=== PATIENT | female | born 1950 | race African-American/Black ===

== ENCOUNTER 2020-01-20 21:48 | Inpatient (IN) | payer MEDICARE, OTHER ==
[~2020-01-20] VITALS: Ht 160 cm; Wt 126.6 kg
[~2020-01-20 21:48] MED LIST: ABILIFY30 MG ORAL; IVERMECTIN5 GM MC; PERMETHRIN59 ML TOPIC; TRAVATAN 0.0042.5 ML BOTH EYES
[2020-01-20 21:50] VITALS: BP 128/84
--- NOTE | 2020-01-20 21:50 | NUR ---
ED Nurse Note: Julius brought into ED by private ambulance from [facility] c/o positive covid test. patient denies any pain or any other complaints. per EMS, patient was tested positive for covid prior to arrival. patient currently satting at 100% on 3 liters nasal cannula, per patients chart, patient was positive for covid 19 followed by multiple negative tests and then positive again. patient is alert and oriented x4, unable to turn patient at this time due heavyness, denies any wounds. patient does present with a diaper. IV started on left forearm 20 gauge, labs sent as well as covid swab. patient placed on isolation room, bed at lowest position
--- NOTE | 2020-01-20 22:13 | Emergency Room Report ---
History of Present Illness General Chief Complaint: Upper Respiratory Illness Source: Patient Present Illness HPI Patient is a 69-year-old female presents for increased cough. Had diagnosis of coronavirus today. Apparently had been requiring oxygen. Patient been sent in from [facility].Patient is noted to have prior history of coronavirus infection in August and spent several weeks in ICU at [facility]. Patient had previously been using supplemental oxygen after this episode. Patient had previously been a smoker. Nonproductive cough. 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 COVID-19 Screening: Positive COVID-19 COVID-19 Testing Source: FLOORING SALES MANAGER 01/20/2020 Patient History Past Medical History: see triage record Now: No Reviewed Nursing Documentation: PMH: Agreed; PSxH: Agreed Nursing Documentation-PMH Past Medical History: No History, Except For Hx Cardiac Problems: Yes Hx Hypertension: Yes Hx Diabetes: Yes Hx Cancer: No Hx Gastrointestinal Problems: No Hx Neurological Problems: Yes Hx Headaches: Yes Hx Neurologic Surgery: No Hx Brain Shunt: No Review of Systems All Other Systems: negative except mentioned in HPI Physical Exam Vital Signs Date Time Temp Pulse Resp B/P (MAP) Pulse Ox O2 Delivery O2 Flow Rate FiO2 01/20/20 21:43 98.8 88 18 137/90 (106) 97 Room Air Sp02 EP Interpretation: reviewed, normal General Appearance: normal inspection, alert, Chronically Ill Head: atraumatic ENT: normal ENT inspection, hearing 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, normal voice Neck: normal inspection, full range of motion, supple, no bony tend Respiratory: normal inspection, lungs clear, normal breath sounds, no respiratory distress, no retraction, no wheezing Cardiovascular #1: regular rate, rhythm, no edema Gastrointestinal: normal inspection, normal bowel sounds, non tender, soft, no guarding, no hernia Genitourinary: no CVA tenderness Musculoskeletal: normal inspection, back normal, normal range of motion Neurologic: alert, computer systems design analyst III-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 Differential diagnosis include was not limited to coronavirus infection, pneumonia, urinary tract infection among others. Because of complexity of patient's case laboratory tests and imaging studies were ordered.Chest x-ray showed bilateral patchy infiltrates without evident air bronchograms and normal cardiac size. Patient was given supplemental oxygen. Patient's facility was noted to have recent outbreak of coronavirus infections and patient had tested positive . Dr. Parham was contacted for inpatient management. Labs Test 01/20/20 22:45 White Blood Count 5.9 K/UL (4.8-10.8) Red Blood Count 3.75 M/UL (4.20-5.40) Hemoglobin 11.6 G/DL (12.0-16.0) Hematocrit 32.6 % (37.0-47.0) Mean Corpuscular Volume 87 FL (80-99) Mean Corpuscular Hemoglobin 30.9 PG (27.0-31.0) Mean Corpuscular Hemoglobin Concent 35.6 G/DL (32.0-36.0) Red Cell Distribution Width 14.3 % (11.6-14.8) Platelet Count 216 K/UL (150-450) Mean Platelet Volume 7.2 FL (6.5-10.1) Neutrophils (%) (Auto) 63.5 % (45.0-75.0) Lymphocytes (%) (Auto) 22.8 % (20.0-45.0) Monocytes (%) (Auto) 11.6 % (1.0-10.0) Eosinophils (%) (Auto) 1.7 % (0.0-3.0) Basophils (%) (Auto) 0.4 % (0.0-2.0) Prothrombin Time 11.8 SEC (9.30-11.50) Prothromb Time International Ratio 1.1 (0.9-1.1) Activated Partial Thromboplast Time 31 SEC (23-33) D-Dimer 1.45 mg/L FEU (0.00-0.49) Urine Color Pale yellow Urine Appearance Clear Urine pH 6 (4.5-8.0) Urine Specific [place] 1.010 (1.005-1.035) Urine Protein Negative (NEGATIVE) Urine Glucose (UA) Negative (NEGATIVE) Urine Ketones Negative (NEGATIVE) Urine Blood 2+ (NEGATIVE) Urine Nitrite Negative (NEGATIVE) Urine Bilirubin Negative (NEGATIVE) Urine Urobilinogen Normal MG/DL (0.0-1.0) Urine Leukocyte Esterase Negative (NEGATIVE) Urine RBC 2-4 /HPF (0 - 2) Urine WBC 0-2 /HPF (0 - 2) Urine Squamous Epithelial Cells Few /LPF (NONE/OCC) Urine Bacteria None /HPF (NONE) Lactic Acid Level 0.50 mmol/L (0.4-2.0) Troponin I 0.000 ng/mL (0.000-0.056) EKG Diagnostic Results Rate: normal Rhythm: NSR, other ST Segments: no acute changes Last Vital Signs Date Time Temp Pulse Resp B/P (MAP) Pulse Ox O2 Delivery O2 Flow Rate FiO2 01/20/20 21:43 98.8 88 18 137/90 (106) 97 Room Air Status: unchanged Disposition: ADMITTED INPATIENT Condition: Stable Kp Sam MD Jan 20, 2020 22:13
[2020-01-20 23:19] LABS: APPEARANCE,URINE CLEAR; BILIRUBIN, URINE NEGATIVE (NEGATIVE); COLOR,URINE PALE YELLOW; GLUCOSE, URINE (UA) NEGATIVE (NEGATIVE); KETONES,URINE NEGATIVE (NEGATIVE); LEUKOCYTE ESTERASE ,URINE NEGATIVE (NEGATIVE); NITRITE,URINE NEGATIVE (NEGATIVE); PH,URINE 6 (4.5-8.0); PROTEIN,URINE NEGATIVE (NEGATIVE); UROBILINOGEN,URINE NORMAL MG/DL (0.0-1.0)
[2020-01-20 23:29] LABS: BASOPHILS % (AUTO) 0.4 % (0.0-2.0); EOSINOPHILS % (AUTO) 1.7 % (0.0-3.0); HEMATOCRIT 32.6 % (37.0-47.0); HEMOGLOBIN 11.6 G/DL (12.0-16.0); LYMPHOCYTES % (AUTO) 22.8 % (20.0-45.0); MEAN CORPUSCULAR VOLUME 87 FL (80-99); MONOCYTES % (AUTO) 11.6 % (1.0-10.0); NEUTROPHILS % (AUTO) 63.5 % (45.0-75.0); PLATELET COUNT 216 K/UL (150-450); RED BLOOD COUNT 3.75 M/UL (4.20-5.40); RED CELL DISTRIBUTION WIDTH 14.3 % (11.6-14.8); WHITE BLOOD COUNT 5.9 K/UL (4.8-10.8)
[2020-01-20 23:41] LABS: INR 1.1 (0.9-1.1)
[2020-01-20 23:45] VITALS: BP 122/80
[2020-01-20 23:52] LABS: ALANINE AMINOTRANSFERASE 6 U/L (12-78); ALBUMIN 2.7 G/DL (3.4-5.0); ALBUMIN/GLOBULIN RATIO 0.5 (1.0-2.7); ALKALINE PHOSPHATASE 78 U/L (46-116); ASPARTATE AMINO TRANSFERASE 17 U/L (15-37); BILIRUBIN,TOTAL 0.2 MG/DL (0.2-1.0); BLOOD UREA NITROGEN 12 mg/dL (7-18); CALCIUM 8.8 MG/DL (8.5-10.1); CARBON DIOXIDE 38 MMOL/L (21-32); CHLORIDE 99 MMOL/L (98-107); CREATINE KINASE 38 U/L (26-308); CREATININE 0.7 MG/DL (0.55-1.30); FERRITIN 192 NG/ML (8-388); LACTATE DEHYDROGENASE 125 U/L (81-234); PHOSPHORUS 3.7 MG/DL (2.5-4.9); POTASSIUM 4.3 MMOL/L (3.5-5.1); SODIUM 140 MMOL/L (136-145)
[2020-01-21 00:15] LABS: CKMB 1.4 NG/ML (0.0-3.6)
--- NOTE | 2020-01-21 00:50 | Emergency Room Report ---
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 COVID-19 Screening: Positive COVID-19 COVID-19 Testing Source: STUDENT DRIVING INSTRUCTOR 01/20/2020 Patient History Now: No Nursing Documentation-PMH Past Medical History: No History, Except For Hx Cardiac Problems: Yes Hx Hypertension: Yes Hx Diabetes: Yes Hx Cancer: No Hx Gastrointestinal Problems: No Hx Neurological Problems: Yes Hx Headaches: Yes Hx Neurologic Surgery: No Hx Brain Shunt: No Physical Exam Vital Signs Date Time Temp Pulse Resp B/P (MAP) Pulse Ox O2 Delivery O2 Flow Rate FiO2 01/20/20 21:43 98.8 88 18 137/90 (106) 97 Room Air Medical Decision Making Last Vital Signs Date Time Temp Pulse Resp B/P (MAP) Pulse Ox O2 Delivery O2 Flow Rate FiO2 01/20/20 21:43 98.8 88 18 137/90 (106) 97 Room Air Kp Sam MD Jan 21, 2020 00:50
[2020-01-21] MEDS ORDERED: SENNA8.6 M2 PO (06:22)
[2020-01-21] MEDS ORDERED: XARELTO10 MG ORAL (06:22)
[2020-01-21] MEDS ORDERED: LIPITOR80 MG ORAL (06:22)
[2020-01-21] MEDS ORDERED: PALIPERIDONE ER6 MG PO (06:22)
[2020-01-21] MEDS ORDERED: TYLENOL EXTRA500 MG ORAL (06:22)
[2020-01-21] MEDS ORDERED: VITAMIN D210 MCG PO (06:22)
[2020-01-21] MEDS ORDERED: PANTOPRAZOLE SO40 MG ORAL (06:22)
[2020-01-21] MEDS ORDERED: HYDRALAZINE HCL25 M1 ORAL (06:22)
[2020-01-21] MEDS ORDERED: ASPIRIN81 MG ORAL (06:22)
[2020-01-21] MEDS ORDERED: LISINOPRIL40 MG ORAL (06:22)
[2020-01-21] MEDS ORDERED: TRAMADOL HCL50 MG ORAL (06:22)
[2020-01-21] MEDS ORDERED: BENZTROPINE ME0.5 MG ORAL (06:22)
[2020-01-21] MEDS ORDERED: MIRALAX17 G2 ORAL (06:22)
--- NOTE | 2020-01-21 07:05 | NUR ---
HAND-OFF: Report given to JOSE Parson and JOSE Villa.
[2020-01-21 07:30] VITALS: BP 106/45
[2020-01-21] MEDS: HydrALAZINE 25mg tab ORAL SCH ×3 (07:30→21:39)
--- NOTE | 2020-01-21 07:48 | NUR ---
Note undone in EDM - 01/21/20 at 0834 by LORENE TRANSFER TO FLOOR: Patient transferred to as ordered, per ER MD. Report given to Nadira GARCIA. Belongings and medications given to Patient. Rapid Covid swab, MRSA and VRE swab sent to lab. Held 07:30 Hydralazine dt BP being 100/35, ER MD aware. Pt is resting comfortably, breathing is even and unlabored, no signs of chest pain or distress noted.
--- NOTE | 2020-01-21 07:48 | NUR ---
ED Nurse Note: Report given to Nadira GARCIA. Belongings and medications given to Patient. Rapid Covid swab, MRSA and VRE swab sent to lab. Held 07:30 Hydralazine dt BP being 100/35, ER MD aware. Pt is resting comfortably, breathing is even and unlabored, no signs of chest pain or distress noted.
--- NOTE | 2020-01-21 08:45 | NUR ---
TRANSFER TO FLOOR: Patient transferred to as ordered, per ER MD. Report given to Nadira GARCIA [address]. Belongings with pt. Transported to 219 with CAR DISPATCHER on tele monitor no signs of distress noted. Breathing is unlabored and she is able to speak in full sentances. Vital signs stable as documented.
[2020-01-21 08:53] VITALS: BP 114/70
--- NOTE | 2020-01-21 09:00 | History and Physical Report ---
DATE OF ADMISSION: 01/21/2020 CHIEF COMPLAINT: COVID-19 pneumonia. HISTORY OF PRESENT ILLNESS: Patient is a 69-year-old female. She has prior history of COVID-19 pneumonia in the summer of this year. She was intubated and developed acute renal failure, but recovered. She was sent to acute rehabilitation and later to a detention facility. She developed worsening cough for the last 2 weeks and tested again positive for COVID-19. She had worsening hypoxemia. On evaluation in the emergency room, she had bilateral infiltrates and required 3 liters nasal cannula. She is now admitted for further evaluation and care. PAST MEDICAL HISTORY: Significant for history of schizophrenia, hypertension, obesity, sleep apnea, history of DVT. PAST SURGICAL HISTORY: None. CURRENT MEDICATIONS: Reconciled and reviewed. ALLERGIES: None. FAMILY HISTORY: None. SOCIAL HISTORY: Negative for tobacco, ethanol, or drugs. REVIEW OF SYSTEMS: GENERAL: No fevers or chills. HEENT: No headaches or visual changes. CARDIOPULMONARY: No chest pain. Positive shortness of breath and cough. GASTROINTESTINAL: No nausea or vomiting. GENITOURINARY: No urgency or frequency. MUSCULOSKELETAL: No joint pain or swelling. NEUROLOGIC: No history of seizures. PHYSICAL EXAMINATION: VITAL SIGNS: Temperature 98, pulse 80, respirations 18, blood pressure 123/97. GENERAL: Patient is well developed, no apparent distress. HEART: Regular. LUNGS: Clear. ABDOMEN: Soft. EXTREMITIES: Without clubbing, cyanosis. NEUROLOGIC: Significant for left-sided weakness. LABORATORY DATA: X-ray showed bilateral infiltrates. UA was clear. White count 6, hemoglobin 11. Sodium 140, potassium 4.3, creatinine is 0.7. ASSESSMENT: This is a 69-year-old female with a prior history of COVID-19 pneumonia admitted with complaints of recurrent COVID-19 pneumonia. PLAN: Supplemental oxygen. ID consultation is pending. Consider remdesivir and steroids. Continue Xarelto. Cardiology and Pulmonary consults have also been obtained. Federico Parham M.D. DR: JOE JOB#: [id number] CC:
--- NOTE | 2020-01-21 09:15 | History and Physical Report ---
DATE OF ADMISSION: 01/21/2020 NOTE: INCOMPLETE DICTATION CHIEF COMPLAINT: COVID-19 pneumonia. HISTORY OF PRESENT ILLNESS: Patient is a 69-year-old. Federico Parham M.D. DR: JOE JOB#: [id number] CC:
[2020-01-21] MEDS: Xarelto 10mg tab ORAL SCH (10:10)
[2020-01-21] MEDS: Vitamin D 1000 units Tab ORAL SCH (10:10)
[2020-01-21] MEDS: Miralax 17gm pkt ORAL SCH (10:10)
[2020-01-21] MEDS: Benztropine 1mg tab ORAL SCH ×2 (10:10→18:10)
[2020-01-21] MEDS: Sennosides 8.6mg tab ORAL SCH (10:10)
[2020-01-21] MEDS: Aspirin Baby 81mg ORAL SCH (10:11)
--- NOTE | 2020-01-21 10:46 | NUR ---
NURSE NOTES: NEW ADMISSION: Pt arrived to the unit at 0900. Admitting Dr Parham, DX: covid pna. Pt was transferred to bed, bedscale reading 129 kg. garnishment specialist placed on pt, SR noted. Pt is bedbound and not able to assist with turning. Pt is AOx4 and on NC @2L with no sign of resp distress or sob. Pt denies any pain, only c/o cough. VSS and pt is afebrile. Pt is incontinent x2. IV to left FA 20G flushed and locked. Skin was assessed and no areas of concern were noted, only dryness. Optifoam placed for protection. Bed in lowest locked position. Call light within reach, will continue with plan of care
[2020-01-21 12:00] VITALS: BP 158/86
--- NOTE | 2020-01-21 12:16 | Consultation ---
DATE OF CONSULTATION: 01/21/2020 INFECTIOUS DISEASES CONSULTATION CONSULTING PHYSICIAN: Sebastian Dumont MD REFERRING PHYSICIAN: Federico Parham MD REASON FOR CONSULTATION: COVID-19 pneumonia. HISTORY OF PRESENTING ILLNESS: This is a 69-year-old lady with history of hypertension, schizophrenia, sleep apnea, obesity, DVT who comes in from a long term facility with cough along with shortness of breath. She was tested positive for COVID-19. An Infectious Diseases consultation has been obtained for antibiotics. PAST MEDICAL HISTORY: 1. History of schizophrenia. 2. Hypertension. 3. Obesity. 4. Sleep apnea. 5. DVT. SOCIAL HISTORY: She used to be a smoker, she does not smoke anymore. She used to drink alcohol, she does not drink anymore. No history of drug use. FAMILY HISTORY: Her brother had heart disease. REVIEW OF SYSTEMS: RESPIRATORY: No fever or chills. She has cough. She has shortness of breath. No chest pain. CARDIAC: No chest pain. No palpitation. No dizziness. No syncope. GASTROINTESTINAL: No nausea. No vomiting. No abdominal pain. No diarrhea. MEDICATIONS: As an inpatient, she is on atorvastatin, vitamin D, Cogentin, Senna, Xarelto, MiraLAX, Protonix, aspirin, Abilify, Tylenol, Ultram, hydralazine. ALLERGIES: No known drug allergies. PHYSICAL EXAMINATION: VITAL SIGNS: Temperature 98.7, T-max of 98.8, pulse of 82, respiratory rate 22, blood pressure 125/65, O2 saturation of 99% on 2 liters of oxygen. Examination deferred due to COVID-19. LABORATORY AND DIAGNOSTIC DATA: White count 5.9, hemoglobin 11.6, hematocrit 32.6, MCV 87, platelet count of 260, with neutrophils of 63%. Sodium 140, potassium 4.3, chloride 99, bicarb 38, BUN 12, creatinine 0.7, glucose 106, calcium 8.8. Ferritin 192. Total bilirubin 0.2, AST 17, ALT 6, alkaline phosphatase 78. LDH 125. CK 38, CK-MB 1.4. Troponin 0. C-reactive protein 7.1. Beta-natriuretic peptide 69. Total protein 7.9, albumin 2.7. Lipase of 115. UA showing 0 to 2 white cells. COVID-19 test was positive. ASSESSMENT: This is a 69-year-old lady with hypertension, schizophrenia, sleep apnea who comes in with cough, shortness of breath, and is found to have. 1. COVID-19 pneumonia. She is on 2 liters of oxygen with saturation of 99%. She has had prior history of COVID-19 pneumonia at [facility] where she spent in ICU for several weeks. 2. Sleep apnea. 3. Hypertension. 4. Schizophrenia. PLAN: 1. We will start the patient on Remdesivir, the patient agrees to it. Benefits and risks explained. 2. We will start the patient on dexamethasone. 3. We will follow up patient clinically. 4. Continue isolation. I would like to thank, Dr. Parham, for this consultation. Sebastian Dumont M.D. DR: Maxwell JOB#: [id number] CC: Federico Parham M.D.
--- NOTE | 2020-01-21 13:34 | NUR ---
CASE MANAGEMENT:REVIEW 69 YR OLD FEMALE BIBA FROM [facility] SI: COVID PNEUMONIA 98.7 88 18 137/90 97% ON RA H/H-11.6/32.6 CO2+38 IS: 1L NS BOLUS CHEST XRAY BLOOD CX : TO TELEMETRY
--- NOTE | 2020-01-21 13:37 | NUR ---
CASE MANAGEMENT:REVIEW 01/21/20 SI: COVID PNA 98.7 82 22 100/35 99% ON 3L/NC IS: IV REMDESIVIR Q24 (02/23) DECADRON PO QD XARELTO PO QD : TELEMETRY STATUS DCP; FROM DONNA ONEILL
[2020-01-21] MEDS ORDERED: Loading Dose:Remdesivir 200mg/NS 210ml IV SCH ×2 (15:00)
[2020-01-21 16:00] VITALS: BP 130/80
--- NOTE | 2020-01-21 19:00 | NUR ---
NURSE HAND-OFF REPORT: Important Events on Shift: code status pending Patient Status: stable Diet: reg Pending Orders: Pending Results/Labs: Pending MD notification: Latest Vital Signs: Temperature 98.2 , Pulse 92 , B/P 130 /80 , Respiratory Rate 20 , O2 SAT 97 , Nasal Cannula, O2 Flow Rate 2.0 . Vital Sign Comment: EKG Rhythm: SR with PAC Rhythm change?: N MD Notified?: - MD Response: Latest Johnson Fall Score: 55 Fall Risk: High Risk Safety Measures: Call light Within Reach, Bed Alarm Zone 2, Side Rails Side Rails x2, Bed position Low and Locked. Fall Precautions: Door Sign Patient Fall Education Report given to brian Tam.
--- NOTE | 2020-01-21 19:07 | Diagnostic Imaging Report ---
Indication: Shortness of breath Technique: One view of the chest Comparison: 06/03/2005 Findings: Inspiration is suboptimal. This results in crowding of the bronchovascular markings. The lungs and pleural spaces are otherwise clear. The heart size is normal. No significant change Impression: Hypoventilatory exam. No acute process
--- NOTE | 2020-01-21 19:10 | NUR ---
NURSE NOTES: Report received from JOSE Waddell. Patient is awake on bed, alert and oriented x 4. electronic device monitor is in place, shows sinus rhythm with PAC's and no chest pain reported. On regular diet, instructed and amenable. IV site is on left forearm g-20 saline locked that is patent and intact. Safety measures are in place, bed in lowest and locked position, side rails up x 2. Will continue plan of care.
[2020-01-21 20:00] VITALS: BP 156/87
[2020-01-21] MEDS: Atorvastatin 80mg tab ORAL SCH (21:39)
[2020-01-22] VITALS: BP 157/84
[2020-01-22 04:00] VITALS: BP 141/77
[2020-01-22 04:56] LABS: BASOPHILS % (AUTO) 0.1 % (0.0-2.0); HEMATOCRIT 36.2 % (37.0-47.0); HEMOGLOBIN 11.5 G/DL (12.0-16.0); LYMPHOCYTES % (AUTO) 16.5 % (20.0-45.0); MEAN CORPUSCULAR VOLUME 95 FL (80-99); MONOCYTES % (AUTO) 5.7 % (1.0-10.0); NEUTROPHILS % (AUTO) 77.7 % (45.0-75.0); PLATELET COUNT 222 K/UL (150-450); RED CELL DISTRIBUTION WIDTH 12.5 % (11.6-14.8); WHITE BLOOD COUNT 5.5 K/UL (4.8-10.8)
[2020-01-22 05:12] LABS: ALANINE AMINOTRANSFERASE 14 U/L (12-78); ALBUMIN 2.6 G/DL (3.4-5.0); ALBUMIN/GLOBULIN RATIO 0.5 (1.0-2.7); ALKALINE PHOSPHATASE 72 U/L (46-116); ANION GAP 7 mmol/L (5-15); ASPARTATE AMINO TRANSFERASE 15 U/L (15-37); BILIRUBIN,DIRECT 0.1 MG/DL (0.0-0.3); BILIRUBIN,TOTAL 0.3 MG/DL (0.2-1.0); BLOOD UREA NITROGEN 11 mg/dL (7-18); CALCIUM 8.7 MG/DL (8.5-10.1); CARBON DIOXIDE 37 MMOL/L (21-32); CHLORIDE 111 MMOL/L (98-107); CREATININE 0.6 MG/DL (0.55-1.30); POTASSIUM 4.6 MMOL/L (3.5-5.1); SODIUM 152 MMOL/L (136-145)
[2020-01-22] MEDS: HydrALAZINE 25mg tab ORAL SCH ×3 (06:17→22:55)
--- NOTE | 2020-01-22 07:36 | NUR ---
NURSE HAND-OFF REPORT: Important Events on Shift: Patient has been resting the whole shift with no complaints made. Patient Status: Patient is awake on bed in stable condition. Plan of care endorsed. Diet: Regular, soft easy chew Pending Orders: Bilirubin, CBC & CMP on 01/22 Pending Results/Labs: AM lab result Pending MD notification:none Latest Vital Signs: Temperature 98.1 , Pulse 75 , B/P 141 /77 , Respiratory Rate 24 , O2 SAT 94 , Nasal Cannula, O2 Flow Rate 2.0 . Vital Sign Comment: stable EKG Rhythm: Sinus Rhythm Rhythm change?: N MD Notified?: - MD Response: Latest Johnson Fall Score: 70 Fall Risk: High Risk Safety Measures: Call light Within Reach, Bed Alarm Zone 1, Side Rails Side Rails x2, Bed position Low and Locked. Fall Precautions: Yellow Socks Yellow Gown Door Sign Patient Fall Education Report given to JOSE Osei.
--- NOTE | 2020-01-22 07:40 | NUR ---
NURSE NOTES: pt is alert and awake in bed. pt getting ready to eat breakfast; tray set-up. respiration is even and unlabored with 02 @2l/min via NC. HOB in semi-waters position. no coughing and fever noted at this time. denies any pain at this time. call light within reach.
[2020-01-22 08:00] VITALS: BP 160/87
[2020-01-22] MEDS: Aspirin Baby 81mg ORAL SCH (09:10)
[2020-01-22] MEDS: Benztropine 1mg tab ORAL SCH ×2 (09:10→17:32)
[2020-01-22] MEDS: Sennosides 8.6mg tab ORAL SCH (09:11)
[2020-01-22] MEDS: Miralax 17gm pkt ORAL SCH (09:11)
[2020-01-22] MEDS: Vitamin D 1000 units Tab ORAL SCH (09:12)
[2020-01-22] MEDS: Xarelto 10mg tab ORAL SCH (09:12)
--- NOTE | 2020-01-22 11:38 | Infectious Diseases Prog Note ---
Assessment/Plan Assessment/Plan A; 1. COVID-19 pneumonia. 2. Sleep apnea. 3. Hypertension. 4. Schizophrenia. 5. Morbid obesity PLAN: 1. Continue Remdesivir & dexamethasone. 2. Continue isolation. Subjective ROS Limited/Unobtainable: No Constitutional: Reports: no symptoms Respiratory: Reports: productive cough Gastrointestinal/Abdominal: Reports: no symptoms Genitourinary: Reports: no symptoms Allergies: Coded Allergies: No Known Allergies (Unverified , 09/04/12) Objective Last 24 Hour Vital Signs Date Time Temp Pulse Resp B/P (MAP) Pulse Ox O2 Delivery O2 Flow Rate FiO2 01/22/20 09:00 Nasal Cannula 2.0 01/22/20 08:00 75 01/22/20 08:00 97.9 82 20 160/87 (111) 95 01/22/20 06:17 141/77 01/22/20 04:00 98.1 75 24 141/77 (98) 94 01/22/20 04:00 71 01/22/20 00:00 79 01/22/20 00:00 97.7 85 20 157/84 (108) 95 01/21/20 21:39 130/80 01/21/20 21:00 Nasal Cannula 2.0 01/21/20 20:00 85 01/21/20 20:00 98.9 84 24 156/87 (110) 95 01/21/20 16:00 92 01/21/20 16:00 98.2 83 20 130/80 (97) 97 01/21/20 13:59 158/86 01/21/20 12:00 82 01/21/20 12:00 97.6 119 22 158/86 (110) 97 Height (Feet): 5 Height (Inches): 3.00 Weight (Pounds): 279 General Appearance: no acute distress HEENT: mucous membranes moist Respiratory/Chest: lungs clear, other - oxygen by nasal cannula Cardiovascular: normal rate Abdomen: soft, non tender Extremities: no edema, other - R hand contracture Neurologic/Psychiatric: alert, responsive Microbiology Date/Time Source Procedure Growth Status 01/21/20 08:23 Rectum Ordered 01/21/20 07:20 Nasopharynx SARS-CoV-2 RdRp Gene Assay - Final Complete 01/20/20 23:00 Blood Blood Culture - Preliminary NO GROWTH AFTER 24 HOURS Resulted 01/20/20 22:45 Blood Blood Culture - Preliminary NO GROWTH AFTER 24 HOURS Resulted Laboratory Tests Test 01/22/20 04:00 White Blood Count 5.5 K/UL (4.8-10.8) Red Blood Count 3.80 M/UL (4.20-5.40) L Hemoglobin 11.5 G/DL (12.0-16.0) L Hematocrit 36.2 % (37.0-47.0) L Mean Corpuscular Volume 95 FL (80-99) # Mean Corpuscular Hemoglobin 30.3 PG (27.0-31.0) Mean Corpuscular Hemoglobin Concent 31.9 G/DL (32.0-36.0) L Red Cell Distribution Width 12.5 % (11.6-14.8) Platelet Count 222 K/UL (150-450) Mean Platelet Volume 6.7 FL (6.5-10.1) Neutrophils (%) (Auto) 77.7 % (45.0-75.0) H Lymphocytes (%) (Auto) 16.5 % (20.0-45.0) L Monocytes (%) (Auto) 5.7 % (1.0-10.0) Eosinophils (%) (Auto) 0.0 % (0.0-3.0) Basophils (%) (Auto) 0.1 % (0.0-2.0) Sodium Level 152 MMOL/L (136-145) H Potassium Level 4.6 MMOL/L (3.5-5.1) Chloride Level 111 MMOL/L (98-107) H Carbon Dioxide Level 37 MMOL/L (21-32) H Anion Gap 7 mmol/L (5-15) Blood Urea Nitrogen 11 mg/dL (7-18) Creatinine 0.6 MG/DL (0.55-1.30) Estimat Glomerular Filtration Rate > 60 mL/min (>60) Glucose Level 134 MG/DL (74-106) H Calcium Level 8.7 MG/DL (8.5-10.1) Total Bilirubin 0.3 MG/DL (0.2-1.0) Direct Bilirubin 0.1 MG/DL (0.0-0.3) Aspartate Amino Transf (AST/SGOT) 15 U/L (15-37) Alanine Aminotransferase (ALT/SGPT) 14 U/L (12-78) Alkaline Phosphatase 72 U/L (46-116) Total Protein 7.8 G/DL (6.4-8.2) Albumin 2.6 G/DL (3.4-5.0) L Globulin 5.2 g/dL Albumin/Globulin Ratio 0.5 (1.0-2.7) L Current Medications Medications (Trade) Dose Ordered Sig/Turner Route PRN Reason Start Time Stop Time Status Last Admin Dose Admin Acetaminophen (Tylenol) 650 mg Q4H PRN ORAL MILD PAIN 01/21/20 07:45 02/20/20 07:44 Acetaminophen (Tylenol) 650 mg Q4H PRN ORAL fever 01/21/20 07:45 02/20/20 07:44 Aripiprazole (Abilify) 30 mg DAILY ORAL 01/21/20 09:00 03/06/20 08:59 01/22/20 09:10 Aspirin (ASA) 81 mg DAILY ORAL 01/21/20 09:00 03/06/20 08:59 01/22/20 09:10 Atorvastatin Calcium (Lipitor) 80 mg BEDTIME ORAL 01/21/20 21:00 04/20/20 20:59 01/21/20 21:39 Benztropine Mesylate (Cogentin) 1 mg BID ORAL 01/21/20 09:00 02/20/20 08:59 01/22/20 09:10 Dexamethasone (Decadron) 6 mg DAILY ORAL 01/21/20 12:30 01/31/20 12:29 01/22/20 09:11 Hydralazine HCl (Apresoline) 25 mg EVERY 8 HOURS ORAL 01/21/20 07:30 04/20/20 07:29 01/22/20 06:17 Pantoprazole (Protonix) 40 mg DAILY ORAL 01/21/20 09:00 02/20/20 08:59 01/22/20 09:11 Polyethylene Glycol (Miralax) 17 gm DAILY ORAL 01/21/20 09:00 02/20/20 08:59 01/22/20 09:11 Remdesivir 100 mg/ Sodium Chloride 250 ml @ 250 mls/hr Q24H IV 01/22/20 15:00 01/25/20 15:59 Rivaroxaban (Xarelto) 10 mg DAILY ORAL 01/21/20 09:00 04/20/20 08:59 01/22/20 09:12 Sennosides (Senokot) 17.2 mg DAILY ORAL 01/21/20 09:00 02/20/20 08:59 01/22/20 09:11 Tramadol HCl (Ultram) 50 mg Q6H PRN ORAL PAIN 4-10 01/21/20 07:30 01/28/20 07:29 Vitamin D (Vitamin D) 1,000 intlu DAILY ORAL 01/21/20 09:00 02/20/20 08:59 01/22/20 09:12 Francisco Hilton MD Jan 22, 2020 11:38
[2020-01-22 12:00] VITALS: BP 155/80
[2020-01-22] MEDS: Maintenance Dose:Remdesivir 100mg/NS 230ml x 4 Doses IV SCH ×2 (14:53)
--- NOTE | 2020-01-22 15:29 | NUR ---
NURSE NOTES: Pt requested cough medication for her coughing. made Dr. Parham aware. MD ordered Phenergan with codeine 5 cc po q 4 hrs prn. order noted and carried out.
[2020-01-22] MEDS ORDERED: Promethazine/Codeine 5ml UD ORAL PRN (15:30)
[2020-01-22 16:00] VITALS: BP 145/79
--- NOTE | 2020-01-22 16:38 | General Progress Note ---
Subjective ROS Limited/Unobtainable: No Constitutional: Reports: malaise, weakness HEENT: Reports: no symptoms Cardiovascular: Reports: no symptoms Respiratory: Reports: cough, shortness of breath Gastrointestinal/Abdominal: Reports: no symptoms Genitourinary: Reports: no symptoms Neurologic/Psychiatric: Reports: anxiety, depressed Endocrine: Reports: no symptoms Hematologic/Lymphatic: Reports: no symptoms Allergies: Coded Allergies: No Known Allergies (Unverified , 09/04/12) All Systems: reviewed and negative except above Subjective no events. stable on o2. no fevers or chills. no sob. on chronic o2. on remdesivir and steroids. ID noted. Objective Last 24 Hour Vital Signs Date Time Temp Pulse Resp B/P (MAP) Pulse Ox O2 Delivery O2 Flow Rate FiO2 01/22/20 16:00 98.0 74 20 145/79 (101) 95 01/22/20 14:52 155/80 01/22/20 12:00 74 01/22/20 12:00 97.7 73 22 155/80 (105) 96 01/22/20 09:00 Nasal Cannula 2.0 01/22/20 08:00 75 01/22/20 08:00 97.9 82 20 160/87 (111) 95 01/22/20 06:17 141/77 01/22/20 04:00 98.1 75 24 141/77 (98) 94 01/22/20 04:00 71 01/22/20 00:00 79 01/22/20 00:00 97.7 85 20 157/84 (108) 95 01/21/20 21:39 130/80 01/21/20 21:00 Nasal Cannula 2.0 01/21/20 20:00 85 01/21/20 20:00 98.9 84 24 156/87 (110) 95 Intake and Output 01/21/20 01/22/20 19:00 07:00 Intake Total 710 ml 1000 ml Output Total 1400 ml Balance 710 ml -400 ml Intake Oral 710 ml 1000 ml Output Urine Total 1400 ml # Voids 2 3 # Bowel Movements 1 1 Laboratory Tests 01/22/20 04:00: White Blood Count 5.5, Red Blood Count 3.80L, Hemoglobin 11.5L, Hematocrit 36.2L , Mean Corpuscular Volume 95#, Mean Corpuscular Hemoglobin 30.3, Mean Corpuscul ar Hemoglobin Concent 31.9L, Red Cell Distribution Width 12.5, Platelet Count 222, Mean Platelet Volume 6.7, Neutrophils (%) (Auto) 77.7H, Lymphocytes (%) (Auto) 16.5L, Monocytes (%) (Auto) 5.7, Eosinophils (%) (Auto) 0.0, Basophils (%) (Auto) 0.1, Sodium Level 152H, Potassium Level 4.6, Chloride Level 111H, Carbon Dioxide Level 37H, Anion Gap 7, Blood Urea Nitrogen 11, Creatinine 0.6, Estimat Glomerular Filtration Rate > 60, Glucose Level 134H, Calcium Level 8.7, Total Bilirubin 0.3, Direct Bilirubin 0.1, Aspartate Amino Transf (AST/SGOT) 15, Alanine Aminotransferase (ALT/SGPT) 14, Alkaline Phosphatase 72, Total Protein 7.8, Albumin 2.6L, Globulin 5.2, Albumin/Globulin Ratio 0.5L Height (Feet): 5 Height (Inches): 3.00 Weight (Pounds): 279 General Appearance: WD/WN, alert EENT: normal ENT inspection Neck: non-tender, normal alignment Cardiovascular: normal peripheral pulses, normal rate Respiratory/Chest: chest wall non-tender, lungs clear, normal breath sounds Abdomen: normal bowel sounds, non tender, soft, no organomegaly, no mass Edema: no edema noted Arm (L), no edema noted Arm (R), no edema noted Leg (L), no edema noted Leg (R) Neurologic: alert, oriented x 3, responsive Assessment/Plan Problem List: (1) CVA (cerebral vascular accident) ICD Codes: I63.9 - Cerebral infarction, unspecified SNOMED: 760764702 (2) CHF (congestive heart failure) ICD Codes: I50.9 - Heart failure, unspecified SNOMED: 86548190 (3) HTN (hypertension), malignant ICD Codes: I10 - Essential (primary) hypertension SNOMED: 10431404 (4) Pneumonia ICD Codes: J18.9 - Pneumonia, unspecified organism SNOMED: 510905062 (5) 2019 novel coronavirus detected ICD Codes: U07.1 - COVID-19 SNOMED: 0825030060095576 Status: stable Assessment/Plan: o2 as needed remdesivir and steroids monitor cxr dvt/stress ulcer 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
--- NOTE | 2020-01-22 18:49 | NUR ---
NURSE HAND-OFF REPORT: Important Events on Shift:n/a Patient Status: stable Diet: regular soft easy-chew Pending Orders: n/a Pending Results/Labs:n/a Pending MD notification:n/a Latest Vital Signs: Temperature 98.0 , Pulse 74 , B/P 145 /79 , Respiratory Rate 20 , O2 SAT 95 , Nasal Cannula, O2 Flow Rate 2.0 . Vital Sign Comment: stable EKG Rhythm: Sinus Rhythm Rhythm change?: N MD Notified?: - MD Response: Latest Johnson Fall Score: 70 Fall Risk: High Risk Safety Measures: Call light Within Reach, Bed Alarm Zone 1, Side Rails Side Rails x2, Bed position Low and Locked. Fall Precautions: Yellow Socks Yellow Gown Door Sign Patient Fall Education Report given to .
[2020-01-22] MEDS ORDERED: ACETAMINOPHEN325 M1 ORAL (19:27)
[2020-01-22] MEDS ORDERED: XARELTO20 MG ORAL (19:27)
[2020-01-22] MEDS ORDERED: CYCLOBENZAPRINE10 MG ORAL (19:27)
[2020-01-22] MEDS ORDERED: GUAIFENESIN DM118 M1 ORAL (19:27)
--- NOTE | 2020-01-22 19:35 | NUR ---
NURSE NOTES: RECIVED RPEORT FROM JOSE ARMIJO. PT IN BED AWAKE, ALERT/ORIENTED X4. ABLE TO MAKE NEEDS KNOWN. ON 02 VIA NC 2L/MIN, NO S/S SOB NOTED. CIGARETTE INSPECTOR IN PLACE. LFA 20G SALINE LOCKED. BED IN IN LOW POISTION & LOCKED. SIDE RAILS UP X3. CALL LIGHT WITH IN REACH. BED ALARM ON.
--- NOTE | 2020-01-22 19:40 | NUR ---
HAND-OFF: Report given to
[2020-01-22 20:00] VITALS: BP 151/90
[2020-01-22] MEDS: Atorvastatin 80mg tab ORAL SCH (22:55)
[2020-01-23] VITALS (8 sets, daily range): BP systolic 135–159; BP diastolic 75–86
[2020-01-23] MEDS: HydrALAZINE 25mg tab ORAL SCH (05:49)
[2020-01-23 06:48] LABS: BASOPHILS % (AUTO) 0.7 % (0.0-2.0); HEMATOCRIT 33.4 % (37.0-47.0); LYMPHOCYTES % (AUTO) 28.1 % (20.0-45.0); MEAN CORPUSCULAR VOLUME 91 FL (80-99); MONOCYTES % (AUTO) 9.7 % (1.0-10.0); NEUTROPHILS % (AUTO) 61.5 % (45.0-75.0); PLATELET COUNT 240 K/UL (150-450); RED BLOOD COUNT 3.66 M/UL (4.20-5.40); RED CELL DISTRIBUTION WIDTH 13.6 % (11.6-14.8); WHITE BLOOD COUNT 6.9 K/UL (4.8-10.8)
--- NOTE | 2020-01-23 07:04 | NUR ---
NURSE NOTES: Report received from JOSE Minaya. Patient is A/Ox 4. CM in place and shows SR with PAC's No SOB or acute distress noted. No pain noted. Pt has a IV site is on LFA 20G saline locked that is patent and intact. Safety measures are in place, bed in lowest and locked position, side rails up x 2. Will continue plan of care.
[2020-01-23 07:07] LABS: ALANINE AMINOTRANSFERASE 13 U/L (12-78); ALBUMIN 2.6 G/DL (3.4-5.0); ALBUMIN/GLOBULIN RATIO 0.5 (1.0-2.7); ALKALINE PHOSPHATASE 68 U/L (46-116); ANION GAP 2 mmol/L (5-15); ASPARTATE AMINO TRANSFERASE 13 U/L (15-37); BILIRUBIN,DIRECT < 0.1 MG/DL (0.0-0.3); BILIRUBIN,TOTAL 0.3 MG/DL (0.2-1.0); BLOOD UREA NITROGEN 13 mg/dL (7-18); CALCIUM 8.6 MG/DL (8.5-10.1); CARBON DIOXIDE 36 MMOL/L (21-32); CHLORIDE 105 MMOL/L (98-107); CREATININE 0.5 MG/DL (0.55-1.30); POTASSIUM 3.9 MMOL/L (3.5-5.1); SODIUM 143 MMOL/L (136-145)
--- NOTE | 2020-01-23 07:42 | NUR ---
NURSE HAND-OFF REPORT: Important Events on Shift:[n/a] Patient Status: [stable] Diet: [ccho ] Pending Orders: [] Pending Results/Labs:[] Pending MD notification:[] Latest Vital Signs: Temperature 97.9 , Pulse 80 , B/P 136 /70 , Respiratory Rate 18 , O2 SAT 98 , Nasal Cannula, O2 Flow Rate 2.0 . Vital Sign Comment: [] EKG Rhythm: Sinus Rhythm Rhythm change?: N MD Notified?: - MD Response: Latest Johnson Fall Score: 70 Fall Risk: High Risk Safety Measures: Call light Within Reach, Bed Alarm Zone 1, Side Rails Side Rails x2, Bed position Low and Locked. Fall Precautions: Yellow Socks Yellow Gown Door Sign Patient Fall Education Report given to [savi,rn].
[2020-01-23] MEDS: Benztropine 1mg tab ORAL SCH ×2 (09:00→17:55)
[2020-01-23] MEDS: Xarelto 10mg tab ORAL SCH (09:36)
[2020-01-23] MEDS: Sennosides 8.6mg tab ORAL SCH (09:36)
[2020-01-23] MEDS: Vitamin D 1000 units Tab ORAL SCH (09:36)
[2020-01-23] MEDS: Aspirin Baby 81mg ORAL SCH (09:36)
[2020-01-23] MEDS: Miralax 17gm pkt ORAL SCH (09:37)
--- NOTE | 2020-01-23 09:48 | NUR ---
CASE MANAGEMENT:REVIEW 01/23/20 SI: COVID PNA 97.9 82 20 159/86 96% ON 2L/NC H/H-11.0/33.4 CO2+36 IS: IV REMDESIVIR Q24 (03/26) DECADRON PO QD XARELTO PO QD : TELEMETRY STATUS DCP; FROM [facility]INO
--- NOTE | 2020-01-23 11:11 | Infectious Diseases Prog Note ---
Assessment/Plan Assessment/Plan antibiotics : remdesivir A 1. recurrent COVID-19 pneumonia. on 2 liters of oxygen with saturation of 96%. 2. prior history of COVID-19 pneumonia at [facility] where she spent in ICU for several weeks. 3. Sleep apnea. 4. Hypertension. 5. Schizophrenia. P 1. continue Remdesivir day 3 2. continue dexamethasone day 3 3. We will follow up patient clinically. 4. Continue isolation. Subjective Constitutional: Denies: fever, chills Respiratory: Reports: dry cough - decreased; Denies: shortness of breath Gastrointestinal/Abdominal: Denies: nausea, vomiting, diarrhea Musculoskeletal: Denies: pain Allergies: Coded Allergies: No Known Allergies (Unverified , 09/04/12) Objective Last 24 Hour Vital Signs Date Time Temp Pulse Resp B/P (MAP) Pulse Ox O2 Delivery O2 Flow Rate FiO2 01/23/20 08:33 Nasal Cannula 2.0 01/23/20 08:00 97.9 82 20 159/86 (110) 96 01/23/20 08:00 69 01/23/20 05:49 136/70 01/23/20 04:00 65 01/23/20 04:00 97.9 80 18 146/77 (100) 98 01/23/20 00:00 65 01/23/20 00:00 97.3 67 18 140/75 (96) 95 01/22/20 22:55 158/76 01/22/20 21:00 Nasal Cannula 2.0 01/22/20 20:00 74 01/22/20 20:00 98.1 75 18 151/90 (110) 95 01/22/20 16:00 98.0 74 20 145/79 (101) 95 01/22/20 16:00 74 01/22/20 14:52 155/80 01/22/20 12:00 74 01/22/20 12:00 97.7 73 22 155/80 (105) 96 Height (Feet): 5 Height (Inches): 3.00 Weight (Pounds): 279 Microbiology Date/Time Source Procedure Growth Status 01/21/20 08:23 Rectum Ordered 01/21/20 07:45 Rectum - Final NO CARBAPENEM-RESISTANT ENTEROBACTERI... Complete 01/21/20 07:45 Rectum VRE Culture - Final Enterococcus Faecalis - Vre Complete 01/21/20 07:45 Nasal Nares MRSA Culture - Final NO METHICILLIN RESISTANT STAPH AUREUS... Complete 01/21/20 07:20 Nasopharynx SARS-CoV-2 RdRp Gene Assay - Final Complete 01/20/20 23:00 Blood Blood Culture - Preliminary NO GROWTH AFTER 48 HOURS Resulted 01/20/20 22:45 Nasopharynx Coronavirus COVID-19 PCR (VÍCTOR) - Final Complete 01/20/20 22:45 Blood Blood Culture - Preliminary NO GROWTH AFTER 48 HOURS Resulted Laboratory Tests Test 01/23/20 05:00 White Blood Count 6.9 K/UL (4.8-10.8) Red Blood Count 3.66 M/UL (4.20-5.40) L Hemoglobin 11.0 G/DL (12.0-16.0) L Hematocrit 33.4 % (37.0-47.0) L Mean Corpuscular Volume 91 FL (80-99) Mean Corpuscular Hemoglobin 30.2 PG (27.0-31.0) Mean Corpuscular Hemoglobin Concent 33.1 G/DL (32.0-36.0) Red Cell Distribution Width 13.6 % (11.6-14.8) Platelet Count 240 K/UL (150-450) Mean Platelet Volume 6.8 FL (6.5-10.1) Neutrophils (%) (Auto) 61.5 % (45.0-75.0) Lymphocytes (%) (Auto) 28.1 % (20.0-45.0) Monocytes (%) (Auto) 9.7 % (1.0-10.0) Eosinophils (%) (Auto) 0.0 % (0.0-3.0) Basophils (%) (Auto) 0.7 % (0.0-2.0) Sodium Level 143 MMOL/L (136-145) Potassium Level 3.9 MMOL/L (3.5-5.1) Chloride Level 105 MMOL/L (98-107) Carbon Dioxide Level 36 MMOL/L (21-32) H Anion Gap 2 mmol/L (5-15) L Blood Urea Nitrogen 13 mg/dL (7-18) Creatinine 0.5 MG/DL (0.55-1.30) L Estimat Glomerular Filtration Rate > 60 mL/min (>60) Glucose Level 80 MG/DL (74-106) Calcium Level 8.6 MG/DL (8.5-10.1) Total Bilirubin 0.3 MG/DL (0.2-1.0) Direct Bilirubin < 0.1 MG/DL (0.0-0.3) Aspartate Amino Transf (AST/SGOT) 13 U/L (15-37) L Alanine Aminotransferase (ALT/SGPT) 13 U/L (12-78) Alkaline Phosphatase 68 U/L (46-116) Total Protein 7.5 G/DL (6.4-8.2) Albumin 2.6 G/DL (3.4-5.0) L Globulin 4.9 g/dL Albumin/Globulin Ratio 0.5 (1.0-2.7) L Current Medications Medications (Trade) Dose Ordered Sig/Turner Route PRN Reason Start Time Stop Time Status Last Admin Dose Admin Acetaminophen (Tylenol) 650 mg Q4H PRN ORAL MILD PAIN 01/21/20 07:45 02/20/20 07:44 Acetaminophen (Tylenol) 650 mg Q4H PRN ORAL fever 01/21/20 07:45 02/20/20 07:44 Aripiprazole (Abilify) 30 mg DAILY ORAL 01/21/20 09:00 03/06/20 08:59 01/23/20 09:36 Aspirin (ASA) 81 mg DAILY ORAL 01/21/20 09:00 03/06/20 08:59 01/23/20 09:36 Atorvastatin Calcium (Lipitor) 80 mg BEDTIME ORAL 01/21/20 21:00 04/20/20 20:59 01/22/20 22:55 Benztropine Mesylate (Cogentin) 1 mg BID ORAL 01/21/20 09:00 02/20/20 08:59 01/23/20 09:00 Dexamethasone (Decadron) 6 mg DAILY ORAL 01/21/20 12:30 01/31/20 12:29 01/23/20 09:36 Hydralazine HCl (Apresoline) 25 mg EVERY 8 HOURS ORAL 01/21/20 07:30 04/20/20 07:29 01/23/20 05:49 Pantoprazole (Protonix) 40 mg DAILY ORAL 01/21/20 09:00 02/20/20 08:59 01/23/20 09:36 Polyethylene Glycol (Miralax) 17 gm DAILY ORAL 01/21/20 09:00 02/20/20 08:59 01/23/20 09:37 Promethazine HCl/ Codeine (Phenergan with Codeine) 5 ml Q4H PRN ORAL For Cough 01/22/20 15:30 02/21/20 15:29 Remdesivir 100 mg/ Sodium Chloride 250 ml @ 250 mls/hr Q24H IV 01/22/20 15:00 01/25/20 15:59 01/22/20 14:53 Rivaroxaban (Xarelto) 10 mg DAILY ORAL 01/21/20 09:00 04/20/20 08:59 01/23/20 09:36 Sennosides (Senokot) 17.2 mg DAILY ORAL 01/21/20 09:00 02/20/20 08:59 01/23/20 09:36 Tramadol HCl (Ultram) 50 mg Q6H PRN ORAL PAIN 4-10 01/21/20 07:30 01/28/20 07:29 Vitamin D (Vitamin D) 1,000 intlu DAILY ORAL 01/21/20 09:00 02/20/20 08:59 01/23/20 09:36 Sebastian Dumont MD Jan 23, 2020 11:11
--- NOTE | 2020-01-23 11:34 | Cardiology Progress Note ---
Subjective DATE OF SERVICE: Jan 22, 2020 Objective Last 24 Hour Vital Signs Date Time Temp Pulse Resp B/P (MAP) Pulse Ox O2 Delivery O2 Flow Rate FiO2 01/23/20 08:33 Nasal Cannula 2.0 01/23/20 08:00 97.9 82 20 159/86 (110) 96 01/23/20 08:00 69 01/23/20 05:49 136/70 01/23/20 04:00 65 01/23/20 04:00 97.9 80 18 146/77 (100) 98 01/23/20 00:00 65 01/23/20 00:00 97.3 67 18 140/75 (96) 95 01/22/20 22:55 158/76 01/22/20 21:00 Nasal Cannula 2.0 01/22/20 20:00 74 01/22/20 20:00 98.1 75 18 151/90 (110) 95 01/22/20 16:00 98.0 74 20 145/79 (101) 95 01/22/20 16:00 74 01/22/20 14:52 155/80 01/22/20 12:00 74 01/22/20 12:00 97.7 73 22 155/80 (105) 96 Laboratory Tests Test 01/23/20 05:00 White Blood Count 6.9 K/UL (4.8-10.8) Red Blood Count 3.66 M/UL (4.20-5.40) L Hemoglobin 11.0 G/DL (12.0-16.0) L Hematocrit 33.4 % (37.0-47.0) L Mean Corpuscular Volume 91 FL (80-99) Mean Corpuscular Hemoglobin 30.2 PG (27.0-31.0) Mean Corpuscular Hemoglobin Concent 33.1 G/DL (32.0-36.0) Red Cell Distribution Width 13.6 % (11.6-14.8) Platelet Count 240 K/UL (150-450) Mean Platelet Volume 6.8 FL (6.5-10.1) Neutrophils (%) (Auto) 61.5 % (45.0-75.0) Lymphocytes (%) (Auto) 28.1 % (20.0-45.0) Monocytes (%) (Auto) 9.7 % (1.0-10.0) Eosinophils (%) (Auto) 0.0 % (0.0-3.0) Basophils (%) (Auto) 0.7 % (0.0-2.0) Sodium Level 143 MMOL/L (136-145) Potassium Level 3.9 MMOL/L (3.5-5.1) Chloride Level 105 MMOL/L (98-107) Carbon Dioxide Level 36 MMOL/L (21-32) H Anion Gap 2 mmol/L (5-15) L Blood Urea Nitrogen 13 mg/dL (7-18) Creatinine 0.5 MG/DL (0.55-1.30) L Estimat Glomerular Filtration Rate > 60 mL/min (>60) Glucose Level 80 MG/DL (74-106) Calcium Level 8.6 MG/DL (8.5-10.1) Total Bilirubin 0.3 MG/DL (0.2-1.0) Direct Bilirubin < 0.1 MG/DL (0.0-0.3) Aspartate Amino Transf (AST/SGOT) 13 U/L (15-37) L Alanine Aminotransferase (ALT/SGPT) 13 U/L (12-78) Alkaline Phosphatase 68 U/L (46-116) Total Protein 7.5 G/DL (6.4-8.2) Albumin 2.6 G/DL (3.4-5.0) L Globulin 4.9 g/dL Albumin/Globulin Ratio 0.5 (1.0-2.7) L Microbiology Date/Time Source Procedure Growth Status 01/21/20 08:23 Rectum Ordered 01/21/20 07:45 Rectum - Final NO CARBAPENEM-RESISTANT ENTEROBACTERI... Complete 01/21/20 07:45 Rectum VRE Culture - Final Enterococcus Faecalis - Vre Complete 01/21/20 07:45 Nasal Nares MRSA Culture - Final NO METHICILLIN RESISTANT STAPH AUREUS... Complete 01/21/20 07:20 Nasopharynx SARS-CoV-2 RdRp Gene Assay - Final Complete 01/20/20 23:00 Blood Blood Culture - Preliminary NO GROWTH AFTER 48 HOURS Resulted 01/20/20 22:45 Nasopharynx Coronavirus COVID-19 PCR (VÍCTOR) - Final Complete 01/20/20 22:45 Blood Blood Culture - Preliminary NO GROWTH AFTER 48 HOURS Resulted Alex Gibbons MD Jan 23, 2020 11:34
--- NOTE | 2020-01-23 11:42 | Cardiology Progress Note ---
Subjective DATE OF SERVICE: Jan 23, 2020 No SOB Saturating well on low flow O2 Monitor: sinus with no ectopyh BP parameters slightly elevated at times. Objective Last 24 Hour Vital Signs Date Time Temp Pulse Resp B/P (MAP) Pulse Ox O2 Delivery O2 Flow Rate FiO2 01/23/20 08:33 Nasal Cannula 2.0 01/23/20 08:00 97.9 82 20 159/86 (110) 96 01/23/20 08:00 69 01/23/20 05:49 136/70 01/23/20 04:00 65 01/23/20 04:00 97.9 80 18 146/77 (100) 98 01/23/20 00:00 65 01/23/20 00:00 97.3 67 18 140/75 (96) 95 01/22/20 22:55 158/76 01/22/20 21:00 Nasal Cannula 2.0 01/22/20 20:00 74 01/22/20 20:00 98.1 75 18 151/90 (110) 95 01/22/20 16:00 98.0 74 20 145/79 (101) 95 01/22/20 16:00 74 01/22/20 14:52 155/80 01/22/20 12:00 74 01/22/20 12:00 97.7 73 22 155/80 (105) 96 HEENT: normal ENT inspection RHYTHM: NSR LUNGS: bilateral rhonchi - few CARDIAC: normal rate, regular rhythm, gallop/S4 ABDOMEN: normal bowel sounds, soft, no organomegaly EXTREMITIES: trace edema Laboratory Tests Test 01/23/20 05:00 White Blood Count 6.9 K/UL (4.8-10.8) Red Blood Count 3.66 M/UL (4.20-5.40) L Hemoglobin 11.0 G/DL (12.0-16.0) L Hematocrit 33.4 % (37.0-47.0) L Mean Corpuscular Volume 91 FL (80-99) Mean Corpuscular Hemoglobin 30.2 PG (27.0-31.0) Mean Corpuscular Hemoglobin Concent 33.1 G/DL (32.0-36.0) Red Cell Distribution Width 13.6 % (11.6-14.8) Platelet Count 240 K/UL (150-450) Mean Platelet Volume 6.8 FL (6.5-10.1) Neutrophils (%) (Auto) 61.5 % (45.0-75.0) Lymphocytes (%) (Auto) 28.1 % (20.0-45.0) Monocytes (%) (Auto) 9.7 % (1.0-10.0) Eosinophils (%) (Auto) 0.0 % (0.0-3.0) Basophils (%) (Auto) 0.7 % (0.0-2.0) Sodium Level 143 MMOL/L (136-145) Potassium Level 3.9 MMOL/L (3.5-5.1) Chloride Level 105 MMOL/L (98-107) Carbon Dioxide Level 36 MMOL/L (21-32) H Anion Gap 2 mmol/L (5-15) L Blood Urea Nitrogen 13 mg/dL (7-18) Creatinine 0.5 MG/DL (0.55-1.30) L Estimat Glomerular Filtration Rate > 60 mL/min (>60) Glucose Level 80 MG/DL (74-106) Calcium Level 8.6 MG/DL (8.5-10.1) Total Bilirubin 0.3 MG/DL (0.2-1.0) Direct Bilirubin < 0.1 MG/DL (0.0-0.3) Aspartate Amino Transf (AST/SGOT) 13 U/L (15-37) L Alanine Aminotransferase (ALT/SGPT) 13 U/L (12-78) Alkaline Phosphatase 68 U/L (46-116) Total Protein 7.5 G/DL (6.4-8.2) Albumin 2.6 G/DL (3.4-5.0) L Globulin 4.9 g/dL Albumin/Globulin Ratio 0.5 (1.0-2.7) L Microbiology Date/Time Source Procedure Growth Status 01/21/20 08:23 Rectum Ordered 01/21/20 07:45 Rectum - Final NO CARBAPENEM-RESISTANT ENTEROBACTERI... Complete 01/21/20 07:45 Rectum VRE Culture - Final Enterococcus Faecalis - Vre Complete 01/21/20 07:45 Nasal Nares MRSA Culture - Final NO METHICILLIN RESISTANT STAPH AUREUS... Complete 01/21/20 07:20 Nasopharynx SARS-CoV-2 RdRp Gene Assay - Final Complete 01/20/20 23:00 Blood Blood Culture - Preliminary NO GROWTH AFTER 48 HOURS Resulted 01/20/20 22:45 Nasopharynx Coronavirus COVID-19 PCR (VÍCTOR) - Final Complete 01/20/20 22:45 Blood Blood Culture - Preliminary NO GROWTH AFTER 48 HOURS Resulted Assessment/Plan Assessment/Plan Covid 19 PNA Hypoxia Bipolar with hx psychosis Hypertension/HHD Diastolic CHF, chr Hyperlipidemia on high dose statin Off IVF DC telemetry Steroids/Remdesivir/Rivaroxiban anticoag rx Uptitrate antiHTN meds Alex Gibbons MD Jan 23, 2020 11:42
--- NOTE | 2020-01-23 12:59 | Cardiology Report ---
APPROVED REPORT EKG Measurement Heart [id number] <Conclusion> Normal sinus rhythm Septal infarct, age undetermined Abnormal ECG
[2020-01-23] MEDS: HydrALAZINE 50mg tab ORAL SCH ×2 (13:10→22:01)
[2020-01-23] MEDS: Maintenance Dose:Remdesivir 100mg/NS 230ml x 4 Doses IV SCH ×2 (14:45)
--- NOTE | 2020-01-23 18:47 | NUR ---
NURSE NOTES: Patient transferred from [facility] to [address] [place] [address]; patient alert x4; on Nasal cannula 2 liters, no sing of distress and shortness breath; no sing of chest pain; IV Left FA 24G flushes well; belonging lists crossed checked and signed by transferring and receiving nurse; side rails up x2, breaks engaged, bed at lowest position; call light within reach; will keep monitoring.
--- NOTE | 2020-01-23 18:56 | NUR ---
NURSE NOTES: Report received from JOSE Minaya. Patient is A/Ox 4. CM in place and shows SR with PAC's No SOB or acute distress noted. No pain noted. Pt has a IV site is on LFA 20G saline locked that is patent and intact. Safety measures are in place, bed in lowest and locked position, side rails up x 2. Will continue plan of care. Addendum: 01/23/20 at 1858 by Haley Steen RN Transferred to and report given to Tiffani
--- NOTE | 2020-01-23 19:31 | NUR ---
HAND-OFF: Report given to JOSE Delatorre.
--- NOTE | 2020-01-23 19:44 | NUR ---
NURSE NOTES: The patient is alert and oriented x4 and doesn't seem to be in any active distress at this time.The Resp is even and unlabored. She does not appear to be in any active distress at this time. She is on 2 liters of oxygen via NC well tolerated.She has a left FA 24g saline log that is patent and asymptomatic.The bed in low level, call light within easy reach. Will continue to monitor as indicated.
[2020-01-23] MEDS: Atorvastatin 80mg tab ORAL SCH (22:01)
[2020-01-23] MEDS: traMADol 50mg tab ORAL PRN (22:03)
[2020-01-24] VITALS: BP 132/72
[2020-01-24 04:00] VITALS: BP 142/74
[2020-01-24] MEDS: HydrALAZINE 50mg tab ORAL SCH ×3 (06:41→21:40)
[2020-01-24 07:09] LABS: BASOPHILS % (AUTO) 0.4 % (0.0-2.0); EOSINOPHILS % (AUTO) 0.2 % (0.0-3.0); HEMATOCRIT 31.8 % (37.0-47.0); HEMOGLOBIN 10.8 G/DL (12.0-16.0); LYMPHOCYTES % (AUTO) 26.2 % (20.0-45.0); MEAN CORPUSCULAR VOLUME 89 FL (80-99); MONOCYTES % (AUTO) 11.6 % (1.0-10.0); NEUTROPHILS % (AUTO) 61.6 % (45.0-75.0); PLATELET COUNT 241 K/UL (150-450); RED BLOOD COUNT 3.55 M/UL (4.20-5.40); RED CELL DISTRIBUTION WIDTH 13.4 % (11.6-14.8); WHITE BLOOD COUNT 7.5 K/UL (4.8-10.8)
--- NOTE | 2020-01-24 07:30 | NUR ---
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 Endorsed to Glenn to followup with MD as indicated.
--- NOTE | 2020-01-24 07:30 | NUR ---
NURSE HAND-OFF: Important Events on Shift:Alert and stable Patient Status: Diet: Pending Orders: Pending Results/Labs: Pending MD notification: Latest Vital Signs: Temperature 98.9 , Pulse 79 , B/P 142 /74 , Respiratory Rate 18 , O2 SAT 96 , Nasal Cannula, O2 Flow Rate 2.0 . Vital Sign Comment: Latest Johnson Fall Score: 70 Fall Risk: High Risk Safety Measures: Call light Within Reach, Bed Alarm Zone 1, Side Rails Side Rails x2, Bed position Low and Locked. Fall Precautions: Yellow Socks Yellow Gown Door Sign Patient Fall Education Report given to .
[2020-01-24 07:31] LABS: ALANINE AMINOTRANSFERASE 8 U/L (12-78); ALBUMIN 2.5 G/DL (3.4-5.0); ALBUMIN/GLOBULIN RATIO 0.5 (1.0-2.7); ALKALINE PHOSPHATASE 69 U/L (46-116); ANION GAP 1 mmol/L (5-15); ASPARTATE AMINO TRANSFERASE 14 U/L (15-37); BILIRUBIN,DIRECT < 0.1 MG/DL (0.0-0.3); BILIRUBIN,TOTAL 0.2 MG/DL (0.2-1.0); BLOOD UREA NITROGEN 22 mg/dL (7-18); CALCIUM 8.2 MG/DL (8.5-10.1); CARBON DIOXIDE 36 MMOL/L (21-32); CHLORIDE 104 MMOL/L (98-107); CREATININE 0.7 MG/DL (0.55-1.30); POTASSIUM 4.4 MMOL/L (3.5-5.1); SODIUM 141 MMOL/L (136-145)
[2020-01-24 08:00] VITALS: BP 145/67
--- NOTE | 2020-01-24 08:00 | NUR ---
NURSE NOTES: Pt lying in bed w/bed in lowest position and call light within reach. Pt A&Ox3; VSS; on 2L NC; and in no apparent distress. IV site intact/asymptomatic & H/L'd and skin intact. Pt has no complaints or concerns at this time. Will continue to monitor.
[2020-01-24] MEDS: Aspirin Baby 81mg ORAL SCH (08:39)
[2020-01-24] MEDS: Vitamin D 1000 units Tab ORAL SCH (08:40)
[2020-01-24] MEDS: Benztropine 1mg tab ORAL SCH ×2 (08:41→17:44)
[2020-01-24] MEDS: Miralax 17gm pkt ORAL SCH (08:41)
[2020-01-24] MEDS: Sennosides 8.6mg tab ORAL SCH (08:42)
--- NOTE | 2020-01-24 11:27 | Infectious Diseases Prog Note ---
Assessment/Plan Assessment/Plan antibiotics : remdesivir A 1. recurrent COVID-19 pneumonia. on 2 liters of oxygen with saturation of 96%. 2. prior history of COVID-19 pneumonia at [facility] 3. Sleep apnea. 4. Hypertension. 5. Schizophrenia. P 1. continue Remdesivir day 4 2. continue dexamethasone day 4 3. We will follow up patient clinically. 4. Continue isolation. Subjective Constitutional: Denies: fever, chills Respiratory: Reports: shortness of breath - decreased, dry cough - decreased Allergies: Coded Allergies: No Known Allergies (Unverified , 09/04/12) Objective Last 24 Hour Vital Signs Date Time Temp Pulse Resp B/P (MAP) Pulse Ox O2 Delivery O2 Flow Rate FiO2 01/24/20 09:00 Nasal Cannula 2.0 01/24/20 08:00 97.5 75 18 145/67 (93) 97 01/24/20 06:41 142/74 01/24/20 04:00 98.9 79 18 142/74 (96) 96 01/24/20 00:00 98.0 89 18 132/72 (92) 95 01/23/20 22:01 135/78 01/23/20 21:00 Nasal Cannula 2.0 01/23/20 20:00 98.5 82 18 135/78 (97) 95 01/23/20 18:53 97.5 90 22 138/78 (98) 93 01/23/20 18:00 97.7 73 18 142/76 (98) 96 01/23/20 18:00 76 01/23/20 16:00 97.7 73 18 142/76 (98) 96 01/23/20 13:10 148/82 01/23/20 12:00 98.2 70 22 148/82 (104) 96 01/23/20 12:00 71 Height (Feet): 5 Height (Inches): 3.00 Weight (Pounds): 279 Microbiology Date/Time Source Procedure Growth Status 01/22/20 06:00 Rectum VRE Culture - Final Enterococcus Faecalis - Vre Complete 01/22/20 06:00 Rectal Mucosa - Final NO CARBAPENEM-RESISTANT ENTEROBACTERI... Complete 01/22/20 06:00 Nasal Nares MRSA Culture - Final Staphylococcus Aureus - Mrsa Complete Laboratory Tests Test 12/5/20 05:45 White Blood Count 7.5 K/UL (4.8-10.8) Red Blood Count 3.55 M/UL (4.20-5.40) L Hemoglobin 10.8 G/DL (12.0-16.0) L Hematocrit 31.8 % (37.0-47.0) L Mean Corpuscular Volume 89 FL (80-99) Mean Corpuscular Hemoglobin 30.5 PG (27.0-31.0) Mean Corpuscular Hemoglobin Concent 34.1 G/DL (32.0-36.0) Red Cell Distribution Width 13.4 % (11.6-14.8) Platelet Count 241 K/UL (150-450) Mean Platelet Volume 7.1 FL (6.5-10.1) Neutrophils (%) (Auto) 61.6 % (45.0-75.0) Lymphocytes (%) (Auto) 26.2 % (20.0-45.0) Monocytes (%) (Auto) 11.6 % (1.0-10.0) H Eosinophils (%) (Auto) 0.2 % (0.0-3.0) Basophils (%) (Auto) 0.4 % (0.0-2.0) Sodium Level 141 MMOL/L (136-145) Potassium Level 4.4 MMOL/L (3.5-5.1) Chloride Level 104 MMOL/L (98-107) Carbon Dioxide Level 36 MMOL/L (21-32) H Anion Gap 1 mmol/L (5-15) L Blood Urea Nitrogen 22 mg/dL (7-18) H Creatinine 0.7 MG/DL (0.55-1.30) Estimat Glomerular Filtration Rate > 60 mL/min (>60) Glucose Level 87 MG/DL (74-106) Calcium Level 8.2 MG/DL (8.5-10.1) L Total Bilirubin 0.2 MG/DL (0.2-1.0) Direct Bilirubin < 0.1 MG/DL (0.0-0.3) Aspartate Amino Transf (AST/SGOT) 14 U/L (15-37) L Alanine Aminotransferase (ALT/SGPT) 8 U/L (12-78) L Alkaline Phosphatase 69 U/L (46-116) Total Protein 7.3 G/DL (6.4-8.2) Albumin 2.5 G/DL (3.4-5.0) L Globulin 4.8 g/dL Albumin/Globulin Ratio 0.5 (1.0-2.7) L Current Medications Medications (Trade) Dose Ordered Sig/Turner Route PRN Reason Start Time Stop Time Status Last Admin Dose Admin Acetaminophen (Tylenol) 650 mg Q4H PRN ORAL MILD PAIN 01/21/20 07:45 02/20/20 07:44 Acetaminophen (Tylenol) 650 mg Q4H PRN ORAL fever 01/21/20 07:45 02/20/20 07:44 Aripiprazole (Abilify) 30 mg DAILY ORAL 01/21/20 09:00 03/06/20 08:59 01/24/20 08:40 Aspirin (ASA) 81 mg DAILY ORAL 01/21/20 09:00 03/06/20 08:59 01/24/20 08:39 Atorvastatin Calcium (Lipitor) 80 mg BEDTIME ORAL 01/21/20 21:00 04/20/20 20:59 01/23/20 22:01 Benztropine Mesylate (Cogentin) 1 mg BID ORAL 01/21/20 09:00 02/20/20 08:59 01/24/20 08:41 Dexamethasone (Decadron) 6 mg DAILY ORAL 01/21/20 12:30 01/31/20 12:29 01/24/20 08:42 Hydralazine HCl (Apresoline) 50 mg EVERY 8 HOURS ORAL 01/23/20 14:00 04/22/20 13:59 01/24/20 06:41 Pantoprazole (Protonix) 40 mg DAILY ORAL 01/21/20 09:00 02/20/20 08:59 01/24/20 08:39 Polyethylene Glycol (Miralax) 17 gm DAILY ORAL 01/21/20 09:00 02/20/20 08:59 01/23/20 09:37 Promethazine HCl/ Codeine (Phenergan with Codeine) 5 ml Q4H PRN ORAL For Cough 01/22/20 15:30 02/21/20 15:29 Remdesivir 100 mg/ Sodium Chloride 250 ml @ 250 mls/hr Q24H IV 01/22/20 15:00 01/25/20 15:59 01/23/20 14:45 Rivaroxaban (Xarelto) 20 mg QPM ORAL 01/24/20 16:30 04/23/20 16:29 Sennosides (Senokot) 17.2 mg DAILY ORAL 01/21/20 09:00 02/20/20 08:59 01/23/20 09:36 Tramadol HCl (Ultram) 50 mg Q6H PRN ORAL PAIN 4-10 01/21/20 07:30 01/28/20 07:29 01/23/20 22:03 Vitamin D (Vitamin D) 1,000 intlu DAILY ORAL 01/21/20 09:00 02/20/20 08:59 01/24/20 08:40 Sebastian Dumont MD Jan 24, 2020 11:27
[2020-01-24 12:00] VITALS: BP 134/67
--- NOTE | 2020-01-24 12:12 | NUR ---
NURSE NOTES: Notified Dr. Parham re: pt's positive MRSA nares result; no new orders given. Will continue to monitor.
--- NOTE | 2020-01-24 12:33 | General Progress Note ---
Subjective ROS Limited/Unobtainable: No Constitutional: Reports: malaise, weakness HEENT: Reports: no symptoms Cardiovascular: Reports: no symptoms Respiratory: Reports: cough, shortness of breath Gastrointestinal/Abdominal: Reports: no symptoms Genitourinary: Reports: no symptoms Neurologic/Psychiatric: Reports: anxiety, emotional problems Endocrine: Reports: no symptoms Hematologic/Lymphatic: Reports: anemia Allergies: Coded Allergies: No Known Allergies (Unverified , 09/04/12) All Systems: reviewed and negative except above Subjective There have been no significant overnight events. Patient is currently resting without complaints. Remained stable on 2 L nasal cannula. No chest pain. No shortness of breath. On IV steroids and remdesivir Objective Last 24 Hour Vital Signs Date Time Temp Pulse Resp B/P (MAP) Pulse Ox O2 Delivery O2 Flow Rate FiO2 01/24/20 12:00 97.3 70 20 134/67 (89) 96 01/24/20 09:00 Nasal Cannula 2.0 01/24/20 08:00 97.5 75 18 145/67 (93) 97 01/24/20 06:41 142/74 01/24/20 04:00 98.9 79 18 142/74 (96) 96 01/24/20 00:00 98.0 89 18 132/72 (92) 95 01/23/20 22:01 135/78 01/23/20 21:00 Nasal Cannula 2.0 01/23/20 20:00 98.5 82 18 135/78 (97) 95 01/23/20 18:53 97.5 90 22 138/78 (98) 93 01/23/20 18:00 97.7 73 18 142/76 (98) 96 01/23/20 18:00 76 01/23/20 16:00 97.7 73 18 142/76 (98) 96 01/23/20 13:10 148/82 Intake and Output 01/23/20 01/24/20 19:00 07:00 Intake Total 240 ml 140 ml Output Total 600 ml Balance 240 ml -460 ml Intake Oral 240 ml 140 ml Output Urine Total 600 ml # Voids 2 4 # Bowel Movements 1 3 Laboratory Tests 01/24/20 05:45: White Blood Count 7.5, Red Blood Count 3.55L, Hemoglobin 10.8L, Hematocrit 31.8L , Mean Corpuscular Volume 89, Mean Corpuscular Hemoglobin 30.5, Mean Corpuscular Hemoglobin Concent 34.1, Red Cell Distribution Width 13.4, Platelet Count 241, Mean Platelet Volume 7.1, Neutrophils (%) (Auto) 61.6, Lymphocytes (%) (Auto) 26.2, Monocytes (%) (Auto) 11.6H, Eosinophils (%) (Auto) 0.2, Basophils (%) (Auto) 0.4, Sodium Level 141, Potassium Level 4.4, Chloride Level 104, Carbon Dioxide Level 36H, Anion Gap 1L, Blood Urea Nitrogen 22H, Creatinine 0.7, Estimat Glomerular Filtration Rate > 60, Glucose Level 87, Calcium Level 8.2L, Total Bilirubin 0.2, Direct Bilirubin < 0.1, Aspartate Amino Transf (AST/SGOT) 14L, Alanine Aminotransferase (ALT/SGPT) 8L, Alkaline Phosphatase 69, Total Protein 7.3, Albumin 2.5L, Globulin 4.8, Albumin/Globulin Ratio 0.5L Height (Feet): 5 Height (Inches): 3.00 Weight (Pounds): 279 General Appearance: WD/WN, alert EENT: PERRL/EOMI, normal ENT inspection Neck: non-tender, normal alignment, supple Cardiovascular: normal peripheral pulses, normal rate Respiratory/Chest: chest wall non-tender, lungs clear, normal breath sounds, no respiratory distress Abdomen: normal bowel sounds, non tender, soft, no organomegaly Edema: no edema noted Arm (L), no edema noted Arm (R), no edema noted Leg (L), no edema noted Leg (R) 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, alert, oriented x 3, responsive Skin: normal pigmentation Assessment/Plan Problem List: (1) CVA (cerebral vascular accident) ICD Codes: I63.9 - Cerebral infarction, unspecified SNOMED: 589991650 (2) CHF (congestive heart failure) ICD Codes: I50.9 - Heart failure, unspecified SNOMED: 04889068 (3) HTN (hypertension), malignant ICD Codes: I10 - Essential (primary) hypertension SNOMED: 02914516 (4) Pneumonia ICD Codes: J18.9 - Pneumonia, unspecified organism SNOMED: 071092691 (5) 2019 novel coronavirus detected ICD Codes: U07.1 - COVID-19 SNOMED: 1581127936653523 Status: stable Assessment/Plan: Continue oxygen as needed. Titrate to keep saturations more than 92% IV remdesivir and Decadron Monitor chest x-ray Anxiolytics as needed DVT and stress ulcer prophylaxis Continue cardiac treatment. Stable. Federico Parham MD Jan 24, 2020 12:33
[2020-01-24] MEDS: Maintenance Dose:Remdesivir 100mg/NS 230ml x 4 Doses IV SCH ×2 (15:14)
[2020-01-24 16:00] VITALS: BP 138/72
[2020-01-24] MEDS: Xarelto 10mg tab ORAL SCH (16:26)
[2020-01-24 20:00] VITALS: BP 144/74
[2020-01-24] MEDS: Atorvastatin 80mg tab ORAL SCH (21:40)
[2020-01-25] VITALS: BP 141/80
[2020-01-25 04:00] VITALS: BP 138/65
[2020-01-25] MEDS: HydrALAZINE 50mg tab ORAL SCH ×3 (05:22→21:10)
--- NOTE | 2020-01-25 06:52 | NUR ---
NURSE HAND-OFF: Important Events on Shift: No events Patient Status: Stable Diet: Reg soft easy chew Pending Orders: N/A Pending Results/Labs: KAYCEE, NNEKA Pending MD notification: N/A Latest Vital Signs: Temperature 98.2 , Pulse 61 , B/P 138 /65 , Respiratory Rate 17 , O2 SAT 95 , Nasal Cannula, O2 Flow Rate 2.0 . Vital Sign Comment: N/A Latest Johnson Fall Score: 70 Fall Risk: High Risk Safety Measures: Call light Within Reach, Bed Alarm Zone 1, Side Rails Side Rails x2, Bed position Low and Locked. Fall Precautions: Yellow Socks Yellow Gown Door Sign Patient Fall Education Addendum: 01/25/20 at 0749 by SISSY SHARPE RN Report given to JOSE Correia
--- NOTE | 2020-01-25 07:37 | NUR ---
NURSE NOTES: WALKING ROUNDS DONE WITH NIGHT RN. PATIENT AWAKE IN BED HAVING BREAKFAST.QUESTIONS ANSWERED, NEEDS MET AT THIS TIME. DISCUSSED PLAN OF CARE FOR THE DAY. VERBALIZED UNDERSTANDING. BED IN LOW AND LOCKED POSITION,CALL LIGHT AND PERSONAL ITEMS WITHIN REACH.
[2020-01-25 07:54] LABS: BASOPHILS % (AUTO) 0.5 % (0.0-2.0); HEMATOCRIT 32.5 % (37.0-47.0); HEMOGLOBIN 10.9 G/DL (12.0-16.0); MEAN CORPUSCULAR VOLUME 90 FL (80-99); MONOCYTES % (AUTO) 7.9 % (1.0-10.0); NEUTROPHILS % (AUTO) 65.6 % (45.0-75.0); PLATELET COUNT 249 K/UL (150-450); RED CELL DISTRIBUTION WIDTH 13.8 % (11.6-14.8); WHITE BLOOD COUNT 8.9 K/UL (4.8-10.8)
[2020-01-25 08:00] VITALS: BP 146/104
[2020-01-25 08:52] LABS: CREATINE KINASE 32 U/L (26-308)
[2020-01-25] MEDS: Aspirin Baby 81mg ORAL SCH (09:23)
[2020-01-25] MEDS: Miralax 17gm pkt ORAL SCH ×2 (09:23→09:37)
[2020-01-25] MEDS: Vitamin D 1000 units Tab ORAL SCH (09:23)
[2020-01-25] MEDS: Benztropine 1mg tab ORAL SCH ×2 (09:24→17:15)
[2020-01-25] MEDS: Sennosides 8.6mg tab ORAL SCH ×3 (09:24→10:55)
[2020-01-25 09:40] LABS: ALANINE AMINOTRANSFERASE 7 U/L (12-78); ALBUMIN 2.5 G/DL (3.4-5.0); ALBUMIN/GLOBULIN RATIO 0.5 (1.0-2.7); ALKALINE PHOSPHATASE 63 U/L (46-116); ANION GAP 6 mmol/L (5-15); ASPARTATE AMINO TRANSFERASE 12 U/L (15-37); BILIRUBIN,DIRECT 0.2 MG/DL (0.0-0.3); BILIRUBIN,TOTAL 0.2 MG/DL (0.2-1.0); BLOOD UREA NITROGEN 22 mg/dL (7-18); CALCIUM 8.3 MG/DL (8.5-10.1); CARBON DIOXIDE 33 MMOL/L (21-32); CHLORIDE 103 MMOL/L (98-107); CHOLESTEROL 107 MG/DL (< 200); CREATININE 0.6 MG/DL (0.55-1.30); HDL CHOLESTEROL 37 MG/DL (40-60); POTASSIUM 3.7 MMOL/L (3.5-5.1); SODIUM 142 MMOL/L (136-145); TRIGLYCERIDES 28 MG/DL (30-150)
--- NOTE | 2020-01-25 10:12 | General Progress Note ---
Subjective ROS Limited/Unobtainable: No Constitutional: Reports: malaise, weakness HEENT: Reports: no symptoms Cardiovascular: Reports: no symptoms Respiratory: Reports: cough, shortness of breath Gastrointestinal/Abdominal: Reports: no symptoms Genitourinary: Reports: no symptoms Neurologic/Psychiatric: Reports: no symptoms Endocrine: Reports: no symptoms Hematologic/Lymphatic: Reports: no symptoms Allergies: Coded Allergies: No Known Allergies (Unverified , 09/04/12) All Systems: reviewed and negative except above Subjective There have been no significant overnight events. Patient is currently resting without complaints. Remained stable on 2 L nasal cannula. No chest pain. No shortness of breath. On IV steroids and remdesivir. states cough is better Objective Last 24 Hour Vital Signs Date Time Temp Pulse Resp B/P (MAP) Pulse Ox O2 Delivery O2 Flow Rate FiO2 01/25/20 08:00 98.2 77 17 146/104 (118) 97 01/25/20 05:22 138/65 01/25/20 04:00 98.2 61 17 138/65 (89) 95 01/25/20 00:00 98.2 65 17 141/80 (100) 98 01/24/20 21:40 144/74 01/24/20 20:47 Nasal Cannula 2.0 01/24/20 20:00 98.4 69 20 144/74 (97) 97 01/24/20 16:00 98.0 73 20 138/72 (94) 96 01/24/20 15:13 134/67 01/24/20 12:00 97.3 70 20 134/67 (89) 96 Intake and Output 01/24/20 01/25/20 19:00 07:00 Intake Total 720 ml 1000 ml Output Total 1100 ml Balance 720 ml -100 ml Intake Oral 720 ml 1000 ml Output Urine Total 1100 ml # Voids 4 3 # Bowel Movements 1 Laboratory Tests 01/25/20 06:05: White Blood Count 8.9, Red Blood Count 3.60L, Hemoglobin 10.9L, Hematocrit 32.5L , Mean Corpuscular Volume 90, Mean Corpuscular Hemoglobin 30.3, Mean Corpuscular Hemoglobin Concent 33.6, Red Cell Distribution Width 13.8, Platelet Count 249, Mean Platelet Volume 6.5, Neutrophils (%) (Auto) 65.6, Lymphocytes (%) (Auto) 26.0, Monocytes (%) (Auto) 7.9, Eosinophils (%) (Auto) 0.0, Basophils (%) (Auto) 0.5, Sodium Level 142, Potassium Level 3.7, Chloride Level 103, Carbon Dioxide Level 33H, Anion Gap 6, Blood Urea Nitrogen 22H, Creatinine 0.6, Estimat Glomerular Filtration Rate > 60, Glucose Level 86, Calcium Level 8.3L, Total Bilirubin 0.2, Direct Bilirubin 0.2, Aspartate Amino Transf (AST/SGOT) 12L, Alanine Aminotransferase (ALT/SGPT) 7L, Alkaline Phosphatase 63, Total Creatine Kinase 32, Total Protein 7.1, Albumin 2.5L, Globulin 4.6, Albumin/Globulin Ratio 0.5L, Triglycerides Level 28L, Cholesterol Level 107, LDL Cholesterol 49, HDL Cholesterol 37L, Cholesterol/HDL Ratio 2.9L Height (Feet): 5 Height (Inches): 3.00 Weight (Pounds): 279 Objective General Appearance: WD/WN, alert EENT: PERRL/EOMI, normal ENT inspection Neck: non-tender, normal alignment, supple Cardiovascular: normal peripheral pulses, normal rate Respiratory/Chest: chest wall non-tender, lungs clear, normal breath sounds, no respiratory distress Abdomen: normal bowel sounds, non tender, soft, no organomegaly Edema: no edema noted Arm (L), no edema noted Arm (R), no edema noted Leg (L), no edema noted Leg (R) Neurologic: rn diabetes II-XII 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, alert, oriented x 3, responsive Skin: normal pigmentation Assessment/Plan Problem List: (1) CVA (cerebral vascular accident) ICD Codes: I63.9 - Cerebral infarction, unspecified SNOMED: 065673831 (2) CHF (congestive heart failure) ICD Codes: I50.9 - Heart failure, unspecified SNOMED: 99441054 (3) HTN (hypertension), malignant ICD Codes: I10 - Essential (primary) hypertension SNOMED: 16263342 (4) Pneumonia ICD Codes: J18.9 - Pneumonia, unspecified organism SNOMED: 888081476 (5) 2019 novel coronavirus detected ICD Codes: U07.1 - COVID-19 SNOMED: 7588729433153368 Status: stable Assessment/Plan: Continue oxygen as needed. Titrate to keep saturations more than 92% IV remdesivir and Decadron Monitor chest x-ray Anxiolytics as needed DVT and stress ulcer prophylaxis Continue cardiac treatment. Stable. Federico Parham MD Jan 25, 2020 10:12
[2020-01-25 12:00] VITALS: BP 126/66
[2020-01-25] MEDS: traMADol 50mg tab ORAL PRN ×2 (13:49→13:56)
[2020-01-25] MEDS: Maintenance Dose:Remdesivir 100mg/NS 230ml x 4 Doses IV SCH ×2 (14:58)
--- NOTE | 2020-01-25 15:10 | NUR ---
NURSE NOTES: PATIENT REMAINS STABLE.TOLERATING RAMDESIVIR INFUSION.VSS.AFEBRILE.
[2020-01-25] MEDS: Xarelto 10mg tab ORAL SCH (15:47)
[2020-01-25 16:00] VITALS: BP 125/62
--- NOTE | 2020-01-25 19:28 | NUR ---
NURSE HAND-OFF: Important Events on Shift:N/A Patient Status: STABLE Diet: REGULAR, SOFT EASY CHEW Pending Orders: N/A Pending Results/Labs:N/A Pending MD notification:N/A Latest Vital Signs: Temperature 98.2 , Pulse 69 , B/P 125 /62 , Respiratory Rate 21 , O2 SAT 100 , Nasal Cannula, O2 Flow Rate 2.0 . Vital Sign Comment: ARNULFO Latest Johnson Fall Score: 70 Fall Risk: High Risk Safety Measures: Call light Within Reach, Bed Alarm Zone 1, Side Rails Side Rails x2, Bed position Low and Locked. Fall Precautions: Yellow Socks Door Sign Patient Fall Education Report given to BRADY GARCIA.
--- NOTE | 2020-01-25 19:28 | NUR ---
Software Firmware Engineer: Received pt awake, A&Ox3-4, and Verbal. Pt is in 2L Nc and sat good. No fever and cough at the moment. Iv is intact and asymptomatic. Bed is in the lowest position,locked, and alarm on. We will keep monitoring the pt.
[2020-01-25 20:00] VITALS: BP 122/68
[2020-01-25] MEDS: Atorvastatin 80mg tab ORAL SCH (21:10)
[2020-01-26] VITALS: BP 139/74
--- NOTE | 2020-01-26 03:36 | Cardiology Progress Note ---
Subjective DATE OF SERVICE: Jan 24, 2020 No SOB Saturating well on low flow O2 Monitor: sinus with no ectopyh BP parameters slightly elevated at times. Objective HEENT: normal ENT inspection RHYTHM: NSR LUNGS: bilateral rhonchi - few CARDIAC: normal rate, regular rhythm, gallop/S4 ABDOMEN: normal bowel sounds, soft, no organomegaly EXTREMITIES: trace edema Assessment/Plan Assessment/Plan Covid 19 PNA Hypoxia Bipolar with hx psychosis Hypertension/HHD Diastolic CHF, chr Hyperlipidemia on high dose statin Off IVF DC telemetry Steroids/Remdesivir/Rivaroxiban anticoag rx Uptitrate antiHTN meds Alex Gibbons MD Jan 26, 2020 03:36
--- NOTE | 2020-01-26 03:39 | Cardiology Progress Note ---
Subjective DATE OF SERVICE: Jan 25, 2020 No SOB Saturating well on low flow O2 BP parameters slightly elevated at times, but overall stabilizing. Patient remains on remdesivir, steroids, and anticoagulation. Objective Last 24 Hour Vital Signs Date Time Temp Pulse Resp B/P (MAP) Pulse Ox O2 Delivery O2 Flow Rate FiO2 01/26/20 00:00 98.1 62 17 139/74 (95) 97 01/25/20 21:10 122/68 01/25/20 20:01 Nasal Cannula 2.0 01/25/20 20:00 97.9 77 19 122/68 (86) 97 01/25/20 16:00 98.2 69 21 125/62 (83) 100 01/25/20 13:49 126/66 01/25/20 12:00 97.9 75 22 126/66 (86) 100 01/25/20 09:00 Nasal Cannula 2.0 01/25/20 08:00 98.2 77 17 146/104 (118) 97 01/25/20 05:22 138/65 01/25/20 04:00 98.2 61 17 138/65 (89) 95 HEENT: normal ENT inspection RHYTHM: NSR LUNGS: bilateral rhonchi - few CARDIAC: normal rate, regular rhythm, gallop/S4 ABDOMEN: normal bowel sounds, soft, no organomegaly EXTREMITIES: trace edema Laboratory Tests Test 01/25/20 06:05 White Blood Count 8.9 K/UL (4.8-10.8) Red Blood Count 3.60 M/UL (4.20-5.40) L Hemoglobin 10.9 G/DL (12.0-16.0) L Hematocrit 32.5 % (37.0-47.0) L Mean Corpuscular Volume 90 FL (80-99) Mean Corpuscular Hemoglobin 30.3 PG (27.0-31.0) Mean Corpuscular Hemoglobin Concent 33.6 G/DL (32.0-36.0) Red Cell Distribution Width 13.8 % (11.6-14.8) Platelet Count 249 K/UL (150-450) Mean Platelet Volume 6.5 FL (6.5-10.1) Neutrophils (%) (Auto) 65.6 % (45.0-75.0) Lymphocytes (%) (Auto) 26.0 % (20.0-45.0) Monocytes (%) (Auto) 7.9 % (1.0-10.0) Eosinophils (%) (Auto) 0.0 % (0.0-3.0) Basophils (%) (Auto) 0.5 % (0.0-2.0) Sodium Level 142 MMOL/L (136-145) Potassium Level 3.7 MMOL/L (3.5-5.1) Chloride Level 103 MMOL/L (98-107) Carbon Dioxide Level 33 MMOL/L (21-32) H Anion Gap 6 mmol/L (5-15) Blood Urea Nitrogen 22 mg/dL (7-18) H Creatinine 0.6 MG/DL (0.55-1.30) Estimat Glomerular Filtration Rate > 60 mL/min (>60) Glucose Level 86 MG/DL (74-106) Calcium Level 8.3 MG/DL (8.5-10.1) L Total Bilirubin 0.2 MG/DL (0.2-1.0) Direct Bilirubin 0.2 MG/DL (0.0-0.3) Aspartate Amino Transf (AST/SGOT) 12 U/L (15-37) L Alanine Aminotransferase (ALT/SGPT) 7 U/L (12-78) L Alkaline Phosphatase 63 U/L (46-116) Total Creatine Kinase 32 U/L (26-308) Total Protein 7.1 G/DL (6.4-8.2) Albumin 2.5 G/DL (3.4-5.0) L Globulin 4.6 g/dL Albumin/Globulin Ratio 0.5 (1.0-2.7) L Triglycerides Level 28 MG/DL (30-150) L Cholesterol Level 107 MG/DL (< 200) LDL Cholesterol 49 mg/dL (<100) HDL Cholesterol 37 MG/DL (40-60) L Cholesterol/HDL Ratio 2.9 (3.3-4.4) L Assessment/Plan Assessment/Plan Covid 19 PNA Hypoxia Bipolar with hx psychosis Hypertension/HHD Diastolic CHF, chr Hyperlipidemia on high dose statin Off IVF Monitor volume status; trend BNP. Steroids/Remdesivir/Rivaroxiban anticoag rx Titrate antiHTN meds as needed; expect lower BP range once off steroids. Alex Gibbons MD Jan 26, 2020 03:39
[2020-01-26 04:00] VITALS: BP 133/70
[2020-01-26] MEDS: HydrALAZINE 50mg tab ORAL SCH ×3 (05:17→21:00)
--- NOTE | 2020-01-26 07:14 | General Progress Note ---
Subjective ROS Limited/Unobtainable: No Constitutional: Reports: malaise, weakness HEENT: Reports: no symptoms Cardiovascular: Reports: no symptoms Respiratory: Reports: shortness of breath Gastrointestinal/Abdominal: Reports: no symptoms Genitourinary: Reports: no symptoms Neurologic/Psychiatric: Reports: pre-existing deficit, weakness Endocrine: Reports: no symptoms Hematologic/Lymphatic: Reports: no symptoms Allergies: Coded Allergies: No Known Allergies (Unverified , 09/04/12) All Systems: reviewed and negative except above Subjective stable. overall feels better. on 2L O2 chronically. no fever or chills. no cp. cxr- clear. Objective Last 24 Hour Vital Signs Date Time Temp Pulse Resp B/P (MAP) Pulse Ox O2 Delivery O2 Flow Rate FiO2 01/26/20 05:17 135/76 01/26/20 04:00 98.2 66 18 133/70 (91) 96 01/26/20 00:00 98.1 62 17 139/74 (95) 97 01/25/20 21:10 122/68 01/25/20 20:01 Nasal Cannula 2.0 01/25/20 20:00 97.9 77 19 122/68 (86) 97 01/25/20 16:00 98.2 69 21 125/62 (83) 100 01/25/20 13:49 126/66 01/25/20 12:00 97.9 75 22 126/66 (86) 100 01/25/20 09:00 Nasal Cannula 2.0 01/25/20 08:00 98.2 77 17 146/104 (118) 97 Intake and Output 01/25/20 01/26/20 19:00 07:00 Intake Total 1410 ml 480 ml Output Total 1300 ml 700 ml Balance 110 ml -220 ml Intake Oral 1160 ml 480 ml IV Total 250 ml Output Urine Total 1300 ml 700 ml # Voids 1 Laboratory Tests 01/26/20 03:30: White Blood Count [Pending], Red Blood Count [Pending], Hemoglobin [Pending], Hematocrit [Pending], Mean Corpuscular Volume [Pending], Mean Corpuscular Hemoglobin [Pending], Mean Corpuscular Hemoglobin Concent [Pending], Red Cell Distribution Width [Pending], Platelet Count [Pending], Mean Platelet Volume [Pending], Neutrophils (%) (Auto) [Pending], Lymphocytes (%) (Auto) [Pending], Monocytes (%) (Auto) [Pending], Eosinophils (%) (Auto) [Pending], Basophils (%) (Auto) [Pending], Sodium Level [Pending], Potassium Level [Pending], Chloride Level [Pending], Carbon Dioxide Level [Pending], Blood Urea Nitrogen [Pending], Creatinine [Pending], Estimat Glomerular Filtration Rate [Pending], Glucose Level [Pending], Calcium Level [Pending], Total Bilirubin [Pending], Direct Bilirubin [Pending], Aspartate Amino Transf (AST/SGOT) [Pending], Alanine Aminotransferase (ALT/SGPT) [Pending], Alkaline Phosphatase [Pending], Total Protein [Pending], Albumin [Pending], Globulin [Pending] Height (Feet): 5 Height (Inches): 3.00 Weight (Pounds): 279 Objective General Appearance: WD/WN, alert EENT: PERRL/EOMI, normal ENT inspection Neck: non-tender, normal alignment, supple Cardiovascular: normal peripheral pulses, normal rate Respiratory/Chest: chest wall non-tender, lungs clear, normal breath sounds, no respiratory distress Abdomen: normal bowel sounds, non tender, soft, no organomegaly Edema: no edema noted Arm (L), no edema noted Arm (R), no edema noted Leg (L), no edema noted Leg (R) 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, alert, oriented x 3, responsive Skin: normal pigmentation Assessment/Plan Problem List: (1) CVA (cerebral vascular accident) ICD Codes: I63.9 - Cerebral infarction, unspecified SNOMED: 352558162 (2) CHF (congestive heart failure) ICD Codes: I50.9 - Heart failure, unspecified SNOMED: 23936994 (3) HTN (hypertension), malignant ICD Codes: I10 - Essential (primary) hypertension SNOMED: 65195149 (4) Pneumonia ICD Codes: J18.9 - Pneumonia, unspecified organism SNOMED: 670393614 (5) 2019 novel coronavirus detected ICD Codes: U07.1 - COVID-19 SNOMED: 5953872452817968 Status: stable Assessment/Plan: cont current rx o2 as needed remdesivir and steroids cont xarelto resp care stress ulcer prophylaxis psych rx Federico Parham MD Jan 26, 2020 07:14
--- NOTE | 2020-01-26 07:24 | NUR ---
HAND-OFF: Report given to JOSE SWANSON.
--- NOTE | 2020-01-26 07:37 | NUR ---
NURSE NOTES: Pt. received from JOSE Wlison. Pt AAOx3 with periods of confusion, no indications of respiratory distress on 2L NC, no indications of pain at this time. IV noted left FA 20g intact and patent, saline locked. Bed low and locked, side rails x3 up, bed alarm active, and call light in reach.
[2020-01-26 07:39] LABS: ALANINE AMINOTRANSFERASE 22 U/L (12-78); ALBUMIN 2.6 G/DL (3.4-5.0); ALBUMIN/GLOBULIN RATIO 0.6 (1.0-2.7); ALKALINE PHOSPHATASE 69 U/L (46-116); ANION GAP 1 mmol/L (5-15); ASPARTATE AMINO TRANSFERASE 15 U/L (15-37); BILIRUBIN,DIRECT < 0.1 MG/DL (0.0-0.3); BILIRUBIN,TOTAL 0.2 MG/DL (0.2-1.0); BLOOD UREA NITROGEN 19 mg/dL (7-18); CALCIUM 8.4 MG/DL (8.5-10.1); CARBON DIOXIDE 36 MMOL/L (21-32); CHLORIDE 104 MMOL/L (98-107); CREATININE 0.7 MG/DL (0.55-1.30); POTASSIUM 4.3 MMOL/L (3.5-5.1); SODIUM 141 MMOL/L (136-145)
[2020-01-26 07:47] LABS: BASOPHILS % (AUTO) 0.4 % (0.0-2.0); HEMATOCRIT 32.5 % (37.0-47.0); HEMOGLOBIN 11.1 G/DL (12.0-16.0); LYMPHOCYTES % (AUTO) 15.7 % (20.0-45.0); MEAN CORPUSCULAR VOLUME 89 FL (80-99); MONOCYTES % (AUTO) 5.4 % (1.0-10.0); NEUTROPHILS % (AUTO) 78.6 % (45.0-75.0); PLATELET COUNT 280 K/UL (150-450); RED BLOOD COUNT 3.66 M/UL (4.20-5.40); RED CELL DISTRIBUTION WIDTH 13.6 % (11.6-14.8); WHITE BLOOD COUNT 9.5 K/UL (4.8-10.8)
[2020-01-26 08:00] VITALS: BP 142/76
[2020-01-26] MEDS: Vitamin D 1000 units Tab ORAL SCH (09:14)
[2020-01-26] MEDS: Aspirin Baby 81mg ORAL SCH (09:14)
[2020-01-26] MEDS: Benztropine 1mg tab ORAL SCH ×2 (09:15→17:14)
--- NOTE | 2020-01-26 10:48 | Infectious Diseases Prog Note ---
Assessment/Plan Assessment/Plan antibiotics : none A 1. recurrent COVID-19 pneumonia. on 2 liters of oxygen with saturation of 100 %. s/p remdesivir 2. prior history of COVID-19 pneumonia at [facility] 3. Sleep apnea. 4. Hypertension. 5. Schizophrenia. P 1. continue dexamethasone day 6 2. We will follow up patient clinically. 3. Continue isolation. Subjective Constitutional: Denies: fever, chills Respiratory: Reports: shortness of breath - decreased, dry cough - mild Gastrointestinal/Abdominal: Denies: nausea, vomiting, diarrhea Musculoskeletal: Denies: pain Allergies: Coded Allergies: No Known Allergies (Unverified , 09/04/12) Objective Last 24 Hour Vital Signs Date Time Temp Pulse Resp B/P (MAP) Pulse Ox O2 Delivery O2 Flow Rate FiO2 01/26/20 05:17 135/76 01/26/20 04:00 98.2 66 18 133/70 (91) 96 01/26/20 00:00 98.1 62 17 139/74 (95) 97 01/25/20 21:10 122/68 01/25/20 20:01 Nasal Cannula 2.0 01/25/20 20:00 97.9 77 19 122/68 (86) 97 01/25/20 16:00 98.2 69 21 125/62 (83) 100 01/25/20 13:49 126/66 01/25/20 12:00 97.9 75 22 126/66 (86) 100 Height (Feet): 5 Height (Inches): 3.00 Weight (Pounds): 279 Laboratory Tests Test 01/26/20 03:30 White Blood Count 9.5 K/UL (4.8-10.8) Red Blood Count 3.66 M/UL (4.20-5.40) L Hemoglobin 11.1 G/DL (12.0-16.0) L Hematocrit 32.5 % (37.0-47.0) L Mean Corpuscular Volume 89 FL (80-99) Mean Corpuscular Hemoglobin 30.3 PG (27.0-31.0) Mean Corpuscular Hemoglobin Concent 34.1 G/DL (32.0-36.0) Red Cell Distribution Width 13.6 % (11.6-14.8) Platelet Count 280 K/UL (150-450) Mean Platelet Volume 6.6 FL (6.5-10.1) Neutrophils (%) (Auto) 78.6 % (45.0-75.0) H Lymphocytes (%) (Auto) 15.7 % (20.0-45.0) L Monocytes (%) (Auto) 5.4 % (1.0-10.0) Eosinophils (%) (Auto) 0.0 % (0.0-3.0) Basophils (%) (Auto) 0.4 % (0.0-2.0) Sodium Level 141 MMOL/L (136-145) Potassium Level 4.3 MMOL/L (3.5-5.1) Chloride Level 104 MMOL/L (98-107) Carbon Dioxide Level 36 MMOL/L (21-32) H Anion Gap 1 mmol/L (5-15) L Blood Urea Nitrogen 19 mg/dL (7-18) H Creatinine 0.7 MG/DL (0.55-1.30) Estimat Glomerular Filtration Rate > 60 mL/min (>60) Glucose Level 117 MG/DL (74-106) H Calcium Level 8.4 MG/DL (8.5-10.1) L Total Bilirubin 0.2 MG/DL (0.2-1.0) Direct Bilirubin < 0.1 MG/DL (0.0-0.3) Aspartate Amino Transf (AST/SGOT) 15 U/L (15-37) Alanine Aminotransferase (ALT/SGPT) 22 U/L (12-78) Alkaline Phosphatase 69 U/L (46-116) Total Protein 7.1 G/DL (6.4-8.2) Albumin 2.6 G/DL (3.4-5.0) L Globulin 4.5 g/dL Albumin/Globulin Ratio 0.6 (1.0-2.7) L Current Medications Medications (Trade) Dose Ordered Sig/Turner Route PRN Reason Start Time Stop Time Status Last Admin Dose Admin Acetaminophen (Tylenol) 650 mg Q4H PRN ORAL MILD PAIN 01/21/20 07:45 02/20/20 07:44 Acetaminophen (Tylenol) 650 mg Q4H PRN ORAL fever 01/21/20 07:45 02/20/20 07:44 Aripiprazole (Abilify) 30 mg DAILY ORAL 01/21/20 09:00 1/16/21 08:59 01/26/20 09:15 Aspirin (ASA) 81 mg DAILY ORAL 01/21/20 09:00 03/06/20 08:59 01/26/20 09:14 Atorvastatin Calcium (Lipitor) 80 mg BEDTIME ORAL 01/21/20 21:00 04/20/20 20:59 01/25/20 21:10 Benztropine Mesylate (Cogentin) 1 mg BID ORAL 01/21/20 09:00 02/20/20 08:59 01/26/20 09:15 Dexamethasone (Decadron) 6 mg DAILY ORAL 01/21/20 12:30 01/31/20 12:29 01/26/20 09:14 Hydralazine HCl (Apresoline) 50 mg EVERY 8 HOURS ORAL 01/23/20 14:00 04/22/20 13:59 01/26/20 05:17 Pantoprazole (Protonix) 40 mg DAILY ORAL 01/21/20 09:00 02/20/20 08:59 01/26/20 09:14 Polyethylene Glycol (Miralax) 17 gm DAILY ORAL 01/21/20 09:00 02/20/20 08:59 01/23/20 09:37 Promethazine HCl/ Codeine (Phenergan with Codeine) 5 ml Q4H PRN ORAL For Cough 01/22/20 15:30 02/21/20 15:29 Rivaroxaban (Xarelto) 20 mg QPM ORAL 01/24/20 16:30 04/23/20 16:29 01/25/20 15:47 Sennosides (Senokot) 17.2 mg DAILY ORAL 01/21/20 09:00 02/20/20 08:59 01/23/20 09:36 Tramadol HCl (Ultram) 50 mg Q6H PRN ORAL PAIN 4-10 01/21/20 07:30 01/28/20 07:29 01/23/20 22:03 Vitamin D (Vitamin D) 1,000 intlu DAILY ORAL 01/21/20 09:00 02/20/20 08:59 01/26/20 09:14 Sebastian Dumont MD Jan 26, 2020 10:48
[2020-01-26 12:00] VITALS: BP 145/70
[2020-01-26 16:00] VITALS: BP 144/71
--- NOTE | 2020-01-26 16:43 | NUR ---
CASE MANAGEMENT:REVIEW SI;COVID PNEUMONIA 98.2 59 18 145/70 94% 2L NC IS;HYDRALAZINE PO Q8 DECADRON PO QD PROTONIX PO QD ABILIFY PO QD COGENTIN PO BID MED SURG STATUS DCP;FROM [facility]AN[facility] NINO
[2020-01-26] MEDS: Xarelto 10mg tab ORAL SCH (17:15)
--- NOTE | 2020-01-26 19:17 | NUR ---
NURSE HAND-OFF: Important Events on Shift:[]pt. titrating off oxygen, now on room air, stable and breathing even and unlabored Patient Status: awake, stable Diet: regular, soft easy Pending Orders: na Pending Results/Labs:na Pending MD notification: tolerating room air well Latest Vital Signs: Temperature 98.1 , Pulse 65 , B/P 144 /71 , Respiratory Rate 19 , O2 SAT 94 , Nasal Cannula, O2 Flow Rate 2.0 . Vital Sign Comment: []stable Latest Johnson Fall Score: 70 Fall Risk: High Risk Safety Measures: Call light Within Reach, Bed Alarm Zone 1, Side Rails Side Rails x3, Bed position Low and Locked. Fall Precautions: Yellow Socks Door Sign Patient Fall Education Report given to JOSE Kunz.
--- NOTE | 2020-01-26 19:42 | NUR ---
NURSE NOTES: Received report from JOSE Lake. AAO x 3-4, on room air. Denies pain, SOB, or discomfort. IV site intact and patent. Bed locked, lowest position, alarm on, side rails up, call light within reach. Will continue to monitor.
[2020-01-26 20:00] VITALS: BP 128/63
[2020-01-26] MEDS: Atorvastatin 80mg tab ORAL SCH (21:01)
[2020-01-27] VITALS: BP 134/63
--- NOTE | 2020-01-27 03:06 | Cardiology Progress Note ---
Subjective DATE OF SERVICE: Jan 26, 2020 No SOB Saturating well on low flow O2 BP parameters overall well controlled. Patient remains on remdesivir, steroids, and anticoagulation. Objective Last 24 Hour Vital Signs Date Time Temp Pulse Resp B/P (MAP) Pulse Ox O2 Delivery O2 Flow Rate FiO2 01/27/20 00:00 98.2 65 18 134/63 (86) 94 01/26/20 21:00 Nasal Cannula 2.0 01/26/20 21:00 130/65 01/26/20 20:00 98.4 75 16 128/63 (84) 92 01/26/20 16:00 98.1 65 19 144/71 (95) 94 01/26/20 14:13 145/70 01/26/20 12:00 98.1 59 19 145/70 (95) 97 01/26/20 09:00 Nasal Cannula 2.0 01/26/20 08:00 97.0 67 19 142/76 (98) 94 01/26/20 05:17 135/76 01/26/20 04:00 98.2 66 18 133/70 (91) 96 HEENT: normal ENT inspection RHYTHM: NSR LUNGS: bilateral rhonchi - few CARDIAC: normal rate, regular rhythm, gallop/S4 ABDOMEN: normal bowel sounds, soft, no organomegaly EXTREMITIES: trace edema Laboratory Tests Test 01/26/20 03:30 White Blood Count 9.5 K/UL (4.8-10.8) Red Blood Count 3.66 M/UL (4.20-5.40) L Hemoglobin 11.1 G/DL (12.0-16.0) L Hematocrit 32.5 % (37.0-47.0) L Mean Corpuscular Volume 89 FL (80-99) Mean Corpuscular Hemoglobin 30.3 PG (27.0-31.0) Mean Corpuscular Hemoglobin Concent 34.1 G/DL (32.0-36.0) Red Cell Distribution Width 13.6 % (11.6-14.8) Platelet Count 280 K/UL (150-450) Mean Platelet Volume 6.6 FL (6.5-10.1) Neutrophils (%) (Auto) 78.6 % (45.0-75.0) H Lymphocytes (%) (Auto) 15.7 % (20.0-45.0) L Monocytes (%) (Auto) 5.4 % (1.0-10.0) Eosinophils (%) (Auto) 0.0 % (0.0-3.0) Basophils (%) (Auto) 0.4 % (0.0-2.0) Sodium Level 141 MMOL/L (136-145) Potassium Level 4.3 MMOL/L (3.5-5.1) Chloride Level 104 MMOL/L (98-107) Carbon Dioxide Level 36 MMOL/L (21-32) H Anion Gap 1 mmol/L (5-15) L Blood Urea Nitrogen 19 mg/dL (7-18) H Creatinine 0.7 MG/DL (0.55-1.30) Estimat Glomerular Filtration Rate > 60 mL/min (>60) Glucose Level 117 MG/DL (74-106) H Calcium Level 8.4 MG/DL (8.5-10.1) L Total Bilirubin 0.2 MG/DL (0.2-1.0) Direct Bilirubin < 0.1 MG/DL (0.0-0.3) Aspartate Amino Transf (AST/SGOT) 15 U/L (15-37) Alanine Aminotransferase (ALT/SGPT) 22 U/L (12-78) Alkaline Phosphatase 69 U/L (46-116) Total Protein 7.1 G/DL (6.4-8.2) Albumin 2.6 G/DL (3.4-5.0) L Globulin 4.5 g/dL Albumin/Globulin Ratio 0.6 (1.0-2.7) L Assessment/Plan Assessment/Plan Covid 19 PNA Hypoxia Bipolar with hx psychosis Hypertension/HHD Diastolic CHF, chr Low lipid parameters on high dose statin Off IVF Monitor volume status; trend BNP. Steroids/Remdesivir/Rivaroxiban anticoag rx Titrate antiHTN meds as needed; expect lower BP range once off steroids. Decrease statin dosing Alex Gibbons MD Jan 27, 2020 03:06
[2020-01-27 04:00] VITALS: BP 134/73
[2020-01-27] MEDS: HydrALAZINE 50mg tab ORAL SCH ×3 (05:09→21:16)
--- NOTE | 2020-01-27 06:04 | NUR ---
NURSE HAND-OFF: Important Events on Shift: NC prn, monitor O2 sat Patient Status: stable Diet: reg soft easy chew Pending Orders: Pending Results/Labs: Pending MD notification: Latest Vital Signs: Temperature 97.7 , Pulse 62 , B/P 136 /75 , Respiratory Rate 18 , O2 SAT 94 , Nasal Cannula, O2 Flow Rate 2.0 . Vital Sign Comment: [] Latest Johnson Fall Score: 70 Fall Risk: High Risk Safety Measures: Call light Within Reach, Bed Alarm Zone 1, Side Rails Side Rails x3, Bed position Low and Locked. Fall Precautions: Yellow Socks Door Sign Patient Fall Education Addendum: 01/27/20 at 0737 by KRISTEN DUVAL RN RN HAND-OFF: Report given to Lenora.
--- NOTE | 2020-01-27 07:45 | NUR ---
NURSE NOTES: Received report from JOSE Kunz. Pt A&O x 3, able to make needs known, on NC 2L. NO SOB. No acute distress noted. Denied pain at this time. IV site intact and patent. Bed locked, lowest position, alarm on, side rails up, call light within reach. Will continue to monitor.
[2020-01-27 08:00] VITALS: BP 128/72
[2020-01-27] MEDS: Aspirin Baby 81mg ORAL SCH (08:35)
[2020-01-27] MEDS: Benztropine 1mg tab ORAL SCH ×2 (08:35→17:36)
[2020-01-27] MEDS: Sennosides 8.6mg tab ORAL SCH (08:35)
[2020-01-27] MEDS: Vitamin D 1000 units Tab ORAL SCH (08:35)
[2020-01-27] MEDS: Miralax 17gm pkt ORAL SCH (08:36)
--- NOTE | 2020-01-27 11:27 | Infectious Diseases Prog Note ---
Assessment/Plan Assessment/Plan antibiotics : none A 1. recurrent COVID-19 pneumonia. on 2 liters of oxygen with saturation of 97 %. s/p remdesivir 2. prior history of COVID-19 pneumonia at [facility] 3. Sleep apnea. 4. Hypertension. 5. Schizophrenia. P 1. continue dexamethasone day 7 2. We will follow up patient clinically. 3. Continue isolation. Subjective Constitutional: Denies: fever, chills Respiratory: Reports: shortness of breath - decreased, dry cough - decreased Gastrointestinal/Abdominal: Denies: nausea, vomiting, diarrhea Musculoskeletal: Denies: pain Allergies: Coded Allergies: No Known Allergies (Unverified , 09/04/12) Objective Last 24 Hour Vital Signs Date Time Temp Pulse Resp B/P (MAP) Pulse Ox O2 Delivery O2 Flow Rate FiO2 01/27/20 09:00 Nasal Cannula 2.0 01/27/20 08:00 97.5 70 20 128/72 (90) 94 01/27/20 05:09 136/75 01/27/20 04:00 97.7 62 18 134/73 (93) 94 01/27/20 00:00 98.2 65 18 134/63 (86) 94 01/26/20 21:00 Nasal Cannula 2.0 01/26/20 21:00 130/65 01/26/20 20:00 98.4 75 16 128/63 (84) 92 01/26/20 16:00 98.1 65 19 144/71 (95) 94 01/26/20 14:13 145/70 01/26/20 12:00 98.1 59 19 145/70 (95) 97 Height (Feet): 5 Height (Inches): 3.00 Weight (Pounds): 279 Current Medications Medications (Trade) Dose Ordered Sig/Turner Route PRN Reason Start Time Stop Time Status Last Admin Dose Admin Acetaminophen (Tylenol) 650 mg Q4H PRN ORAL MILD PAIN 01/21/20 07:45 02/20/20 07:44 Acetaminophen (Tylenol) 650 mg Q4H PRN ORAL fever 01/21/20 07:45 02/20/20 07:44 Aripiprazole (Abilify) 30 mg DAILY ORAL 01/21/20 09:00 03/06/20 08:59 01/27/20 08:35 Aspirin (ASA) 81 mg DAILY ORAL 01/21/20 09:00 03/06/20 08:59 01/27/20 08:35 Atorvastatin Calcium (Lipitor) 20 mg BEDTIME ORAL 01/27/20 21:00 04/26/20 20:59 Benztropine Mesylate (Cogentin) 1 mg BID ORAL 01/21/20 09:00 02/20/20 08:59 01/27/20 08:35 Dexamethasone (Decadron) 6 mg DAILY ORAL 01/21/20 12:30 01/31/20 12:29 01/27/20 08:35 Hydralazine HCl (Apresoline) 50 mg EVERY 8 HOURS ORAL 01/23/20 14:00 04/22/20 13:59 01/27/20 05:09 Pantoprazole (Protonix) 40 mg DAILY ORAL 01/21/20 09:00 02/20/20 08:59 01/27/20 08:35 Polyethylene Glycol (Miralax) 17 gm DAILY ORAL 01/21/20 09:00 02/20/20 08:59 01/27/20 08:36 Promethazine HCl/ Codeine (Phenergan with Codeine) 5 ml Q4H PRN ORAL For Cough 01/22/20 15:30 02/21/20 15:29 Rivaroxaban (Xarelto) 20 mg QPM ORAL 01/24/20 16:30 04/23/20 16:29 01/26/20 17:15 Sennosides (Senokot) 17.2 mg DAILY ORAL 01/21/20 09:00 02/20/20 08:59 01/27/20 08:35 Tramadol HCl (Ultram) 50 mg Q6H PRN ORAL PAIN 4-10 01/21/20 07:30 01/28/20 07:29 01/23/20 22:03 Vitamin D (Vitamin D) 1,000 intlu DAILY ORAL 01/21/20 09:00 02/20/20 08:59 01/27/20 08:35 Sebastian Dumont MD Jan 27, 2020 11:27
[2020-01-27 12:00] VITALS: BP 132/64
[2020-01-27 16:00] VITALS: BP 127/69
[2020-01-27] MEDS: Xarelto 10mg tab ORAL SCH (16:30)
--- NOTE | 2020-01-27 19:16 | NUR ---
NURSE HAND-OFF: Important Events on Shift:[stable, saturating 96% NC 2L] Patient Status: [] Diet: [reg] Pending Orders: [] Pending Results/Labs:[] Pending MD notification:[] Latest Vital Signs: Temperature 98.5 , Pulse 69 , B/P 127 /69 , Respiratory Rate 20 , O2 SAT 96 , Nasal Cannula, O2 Flow Rate 2.0 . Vital Sign Comment: [stable] Latest Johnson Fall Score: 70 Fall Risk: High Risk Safety Measures: Call light Within Reach, Bed Alarm Zone 1, Side Rails Side Rails x3, Bed position Low and Locked. Fall Precautions: Yellow Socks Door Sign Patient Fall Education Report given to [JOSE Rascon].
--- NOTE | 2020-01-27 19:30 | NUR ---
NURSE NOTES: Received patient in no apparent distress. A&OX3. NC 2L on, no s/s of respiratory distress noted. IV site patent and intact. Bed in lowest position. Call light within reach. Will continue to monitor.
[2020-01-27 20:00] VITALS: BP 126/57
[2020-01-27] MEDS: Atorvastatin 20mg tab ORAL SCH (21:16)
[2020-01-28] VITALS: BP 112/56
--- NOTE | 2020-01-28 02:41 | Cardiology Progress Note ---
Subjective DATE OF SERVICE: Jan 24, 2020 No SOB. Saturating well on low flow O2 BP parameters overall well controlled. Patient remains on remdesivir, steroids, and anticoagulation. Objective Last 24 Hour Vital Signs 134/67 70 20 Afebrile HEENT: normal ENT inspection RHYTHM: NSR LUNGS: bilateral rhonchi - few CARDIAC: normal rate, regular rhythm, gallop/S4 ABDOMEN: normal bowel sounds, soft, no organomegaly EXTREMITIES: trace edema Assessment/Plan Assessment/Plan Covid 19 PNA Hypoxia Bipolar with hx psychosis Hypertension/HHD Diastolic CHF, chr Low lipid parameters on high dose statin Off IVF Monitor volume status; trend BNP. Steroids/Remdesivir/Rivaroxiban anticoag rx Titrate antiHTN meds as needed; expect lower BP range once off steroids. Check lipid panel and reassess statin dosing. Alex Gibbons MD Jan 28, 2020 02:41
--- NOTE | 2020-01-28 02:43 | Cardiology Progress Note ---
Subjective DATE OF SERVICE: Jan 27, 2020 No SOB. Saturating well on low flow O2 BP parameters overall well controlled. Patient remains on remdesivir, steroids, and anticoagulation. Objective Last 24 Hour Vital Signs Date Time Temp Pulse Resp B/P (MAP) Pulse Ox O2 Delivery O2 Flow Rate FiO2 01/28/20 00:00 98.0 66 18 112/56 (74) 94 01/27/20 21:16 126/57 01/27/20 21:00 Nasal Cannula 2.0 01/27/20 20:00 97.7 65 18 126/57 (80) 95 01/27/20 16:00 98.5 69 20 127/69 (88) 96 01/27/20 13:54 132/64 01/27/20 12:00 98.0 64 20 132/64 (86) 95 01/27/20 09:00 Nasal Cannula 2.0 01/27/20 08:00 97.5 70 20 128/72 (90) 94 01/27/20 05:09 136/75 01/27/20 04:00 97.7 62 18 134/73 (93) 94 HEENT: normal ENT inspection RHYTHM: NSR LUNGS: lungs clear bilaterally, no accessory muscle use, diminished breath sounds CARDIAC: normal rate, regular rhythm, gallop/S4 ABDOMEN: normal bowel sounds, soft, no organomegaly EXTREMITIES: trace edema Assessment/Plan Assessment/Plan Covid 19 PNA Hypoxia resolving Bipolar with hx psychosis Hypertension/HHD Diastolic CHF, chr Low lipid parameters on high dose statin Off IVF Monitor volume status; trend BNP. Steroid rx. Titrate antiHTN meds as needed; expect lower BP range once off steroids. On lower dose statin based on recent lipid panel Check O2 sats on room air, and DC oxygen if adequate Alex Gibbons MD Jan 28, 2020 02:43
[2020-01-28 04:00] VITALS: BP 128/67
[2020-01-28] MEDS: HydrALAZINE 50mg tab ORAL SCH ×3 (05:09→21:05)
--- NOTE | 2020-01-28 07:29 | NUR ---
NURSE HAND-OFF: Important Events on Shift: Patient Status: Diet: regular Pending Orders: Pending Results/Labs: Pending MD notification: Latest Vital Signs: Temperature 98.8 , Pulse 63 , B/P 128 /67 , Respiratory Rate 18 , O2 SAT 93 , Nasal Cannula, O2 Flow Rate 2.0 . Vital Sign Comment: Latest Johnson Fall Score: 70 Fall Risk: High Risk Safety Measures: Call light Within Reach, Bed Alarm Zone 1, Side Rails Side Rails x3, Bed position Low and Locked. Fall Precautions: Yellow Socks Door Sign Patient Fall Education Report given to Kristnia GARCIA.
--- NOTE | 2020-01-28 07:31 | NUR ---
NURSE NOTES: Report received from JOSE Rascon. Pt awake in bed, alert and oriented x 3, no SOB, no s/sx of discomfort at this time, bed in lowest position with breaks engaged and alarm on, on droplet and contact isolation for COVID, IV line present on left FA, will continue to monitor and proceed with plan of care, call light within reach.
[2020-01-28 08:00] VITALS: BP 133/72
[2020-01-28] MEDS: Miralax 17gm pkt ORAL SCH (08:37)
[2020-01-28] MEDS: Vitamin D 1000 units Tab ORAL SCH (08:38)
[2020-01-28] MEDS: Benztropine 1mg tab ORAL SCH ×2 (08:38→17:06)
[2020-01-28] MEDS: Sennosides 8.6mg tab ORAL SCH (08:38)
[2020-01-28] MEDS: Aspirin Baby 81mg ORAL SCH (08:38)
--- NOTE | 2020-01-28 11:47 | Infectious Diseases Prog Note ---
Assessment/Plan Assessment/Plan antibiotics : none A 1. recurrent COVID-19 pneumonia. on 2 liters of oxygen with saturation of 95 %. s/p remdesivir 2. prior history of COVID-19 pneumonia at [facility] 3. Sleep apnea. 4. Hypertension. 5. Schizophrenia. P 1. continue dexamethasone day 8 2. We will follow up patient clinically. 3. Continue isolation. Subjective Constitutional: Denies: fever, chills Respiratory: Reports: shortness of breath - less, dry cough - less Allergies: Coded Allergies: No Known Allergies (Unverified , 09/04/12) Objective Last 24 Hour Vital Signs Date Time Temp Pulse Resp B/P (MAP) Pulse Ox O2 Delivery O2 Flow Rate FiO2 01/28/20 09:00 Nasal Cannula 2.0 01/28/20 08:00 97.8 20 133/72 (92) 93 01/28/20 05:09 128/67 01/28/20 04:00 98.8 63 18 128/67 (87) 93 01/28/20 00:00 98.0 66 18 112/56 (74) 94 01/27/20 21:16 126/57 01/27/20 21:00 Nasal Cannula 2.0 01/27/20 20:00 97.7 65 18 126/57 (80) 95 01/27/20 16:00 98.5 69 20 127/69 (88) 96 01/27/20 13:54 132/64 01/27/20 12:00 98.0 64 20 132/64 (86) 95 Height (Feet): 5 Height (Inches): 3.00 Weight (Pounds): 279 Current Medications Medications (Trade) Dose Ordered Sig/Turner Route PRN Reason Start Time Stop Time Status Last Admin Dose Admin Acetaminophen (Tylenol) 650 mg Q4H PRN ORAL MILD PAIN 01/21/20 07:45 02/20/20 07:44 Acetaminophen (Tylenol) 650 mg Q4H PRN ORAL fever 01/21/20 07:45 02/20/20 07:44 Aripiprazole (Abilify) 30 mg DAILY ORAL 01/21/20 09:00 03/06/20 08:59 01/28/20 08:38 Aspirin (ASA) 81 mg DAILY ORAL 01/21/20 09:00 03/06/20 08:59 01/28/20 08:38 Atorvastatin Calcium (Lipitor) 20 mg BEDTIME ORAL 01/27/20 21:00 04/26/20 20:59 01/27/20 21:16 Benztropine Mesylate (Cogentin) 1 mg BID ORAL 01/21/20 09:00 02/20/20 08:59 01/28/20 08:38 Dexamethasone (Decadron) 6 mg DAILY ORAL 01/21/20 12:30 01/31/20 12:29 01/28/20 08:38 Hydralazine HCl (Apresoline) 50 mg EVERY 8 HOURS ORAL 01/23/20 14:00 04/22/20 13:59 01/28/20 05:09 Pantoprazole (Protonix) 40 mg DAILY ORAL 01/21/20 09:00 02/20/20 08:59 01/28/20 08:38 Polyethylene Glycol (Miralax) 17 gm DAILY ORAL 01/21/20 09:00 02/20/20 08:59 01/28/20 08:37 Promethazine HCl/ Codeine (Phenergan with Codeine) 5 ml Q4H PRN ORAL For Cough 01/22/20 15:30 02/21/20 15:29 Rivaroxaban (Xarelto) 20 mg QPM ORAL 01/24/20 16:30 04/23/20 16:29 01/27/20 16:30 Sennosides (Senokot) 17.2 mg DAILY ORAL 01/21/20 09:00 02/20/20 08:59 01/28/20 08:38 Vitamin D (Vitamin D) 1,000 intlu DAILY ORAL 01/21/20 09:00 02/20/20 08:59 01/28/20 08:38 Sebastian Dumont MD Jan 28, 2020 11:47
[2020-01-28 12:00] VITALS: BP 136/66
--- NOTE | 2020-01-28 13:27 | NUR ---
RD ASSESSMENT & RECOMMENDATIONS SEE CARE ACTIVITY FOR COMPLETE ASSESSMENT DAILY ESTIMATED NEEDS: Needs based on Pulmonary, obese/ 76kg abw 20-23 kcals/kg 5744-8815 total kcals 1-1.5 g protein/kg 76-114 g total protein 25-30 mL/kg 5957-9425 total fluid mLs NUTRITION DIAGNOSIS: Morbid obesity R/T life style factors? excessive energy intake? as evidenced by BMI >40, pt @ 215% IBW. CURRENT DIET:REGULAR PO DIET RECOMMENDATIONS: CARDIAC ADDITIONAL RECOMMENDATIONS: * Calibrated bedscale wt * Monitor for continued good tolerance to oral diet- COVID-19 positive * Monitor BGs w/ Decadron- good BG control at this time.
[2020-01-28 16:00] VITALS: BP 127/70
[2020-01-28] MEDS: Xarelto 10mg tab ORAL SCH (16:19)
--- NOTE | 2020-01-28 16:34 | NUR ---
CASE MANAGEMENT:REVIEW SI;COVID PNEUMONIA 98.8 74 20 136/72 93% 2L NC IS;DECADRON PO QD COGENTIN PO BID PROTONIX PO QD APO QD MED SURG STATUS DCP;FROM [facility]
--- NOTE | 2020-01-28 17:03 | General Progress Note ---
Subjective Date patient seen: Jan 27, 2020 Constitutional: Reports: malaise, weakness HEENT: Reports: no symptoms Cardiovascular: Reports: no symptoms Respiratory: Reports: cough Gastrointestinal/Abdominal: Reports: no symptoms Genitourinary: Reports: no symptoms Neurologic/Psychiatric: Reports: no symptoms Endocrine: Reports: no symptoms Hematologic/Lymphatic: Reports: anemia Allergies: Coded Allergies: No Known Allergies (Unverified , 09/04/12) All Systems: reviewed and negative except above Subjective stable. overall feels better. on 2L O2 chronically. no fever or chills. no cp. cxr- clear. Objective Last 24 Hour Vital Signs Date Time Temp Pulse Resp B/P (MAP) Pulse Ox O2 Delivery O2 Flow Rate FiO2 01/28/20 16:00 98.7 74 18 127/70 (89) 95 01/28/20 13:26 136/66 01/28/20 12:00 97.7 71 18 136/66 (89) 96 01/28/20 09:00 Nasal Cannula 2.0 01/28/20 08:00 97.8 20 133/72 (92) 93 01/28/20 05:09 128/67 01/28/20 04:00 98.8 63 18 128/67 (87) 93 01/28/20 00:00 98.0 66 18 112/56 (74) 94 01/27/20 21:16 126/57 01/27/20 21:00 Nasal Cannula 2.0 01/27/20 20:00 97.7 65 18 126/57 (80) 95 Intake and Output 01/27/20 01/28/20 19:00 07:00 Intake Total 900 ml Output Total 1000 ml 1200 ml Balance -100 ml -1200 ml Intake Oral 900 ml Output Urine Total 1000 ml 1200 ml Height (Feet): 5 Height (Inches): 3.00 Weight (Pounds): 279 Objective General Appearance: WD/WN, alert EENT: PERRL/EOMI, normal ENT inspection Neck: non-tender, normal alignment, supple Cardiovascular: normal peripheral pulses, normal rate Respiratory/Chest: chest wall non-tender, lungs clear, normal breath sounds, no respiratory distress Abdomen: normal bowel sounds, non tender, soft, no organomegaly Edema: no edema noted Arm (L), no edema noted Arm (R), no edema noted Leg (L), no edema noted Leg (R) Neurologic: medicare biller II-XII 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, alert, oriented x 3, responsive Skin: normal pigmentation Assessment/Plan Problem List: (1) CVA (cerebral vascular accident) ICD Codes: I63.9 - Cerebral infarction, unspecified SNOMED: 531780068 (2) CHF (congestive heart failure) ICD Codes: I50.9 - Heart failure, unspecified SNOMED: 16513788 (3) HTN (hypertension), malignant ICD Codes: I10 - Essential (primary) hypertension SNOMED: 16141918 (4) Pneumonia ICD Codes: J18.9 - Pneumonia, unspecified organism SNOMED: 038330478 (5) 2019 novel coronavirus detected ICD Codes: U07.1 - COVID-19 SNOMED: 3907867265671082 Status: stable Assessment/Plan: cont current rx o2 as needed. on chronic o2 at snf remdesivir and steroids cont xarelto resp care stress ulcer prophylaxis psych rx Federico Parham MD Jan 28, 2020 17:03
--- NOTE | 2020-01-28 17:04 | General Progress Note ---
Subjective ROS Limited/Unobtainable: No Constitutional: Reports: malaise, weakness HEENT: Reports: no symptoms Cardiovascular: Reports: no symptoms Respiratory: Reports: no symptoms Gastrointestinal/Abdominal: Reports: no symptoms Genitourinary: Reports: no symptoms Neurologic/Psychiatric: Reports: no symptoms Endocrine: Reports: no symptoms Hematologic/Lymphatic: Reports: no symptoms Allergies: Coded Allergies: No Known Allergies (Unverified , 09/04/12) All Systems: reviewed and negative except above Subjective stable. overall feels better. on 2L. no fever or chills. no cp. Objective Last 24 Hour Vital Signs Date Time Temp Pulse Resp B/P (MAP) Pulse Ox O2 Delivery O2 Flow Rate FiO2 01/28/20 16:00 98.7 74 18 127/70 (89) 95 01/28/20 13:26 136/66 01/28/20 12:00 97.7 71 18 136/66 (89) 96 01/28/20 09:00 Nasal Cannula 2.0 01/28/20 08:00 97.8 20 133/72 (92) 93 01/28/20 05:09 128/67 01/28/20 04:00 98.8 63 18 128/67 (87) 93 01/28/20 00:00 98.0 66 18 112/56 (74) 94 01/27/20 21:16 126/57 01/27/20 21:00 Nasal Cannula 2.0 01/27/20 20:00 97.7 65 18 126/57 (80) 95 Intake and Output 01/27/20 01/28/20 19:00 07:00 Intake Total 900 ml Output Total 1000 ml 1200 ml Balance -100 ml -1200 ml Intake Oral 900 ml Output Urine Total 1000 ml 1200 ml Height (Feet): 5 Height (Inches): 3.00 Weight (Pounds): 279 Objective General Appearance: WD/WN, alert EENT: PERRL/EOMI, normal ENT inspection Neck: non-tender, normal alignment, supple Cardiovascular: normal peripheral pulses, normal rate Respiratory/Chest: chest wall non-tender, lungs clear, normal breath sounds, no respiratory distress Abdomen: normal bowel sounds, non tender, soft, no organomegaly Edema: no edema noted Arm (L), no edema noted Arm (R), no edema noted Leg (L), no edema noted Leg (R) 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, alert, oriented x 3, responsive Skin: normal pigmentation Assessment/Plan Problem List: (1) CVA (cerebral vascular accident) ICD Codes: I63.9 - Cerebral infarction, unspecified SNOMED: 042483337 (2) CHF (congestive heart failure) ICD Codes: I50.9 - Heart failure, unspecified SNOMED: 69045119 (3) HTN (hypertension), malignant ICD Codes: I10 - Essential (primary) hypertension SNOMED: 85359311 (4) Pneumonia ICD Codes: J18.9 - Pneumonia, unspecified organism SNOMED: 327407395 (5) 2019 novel coronavirus detected ICD Codes: U07.1 - COVID-19 SNOMED: 2625441724385236 Status: stable Assessment/Plan: cont current rx o2 as needed. on chronic o2 at snf remdesivir and steroids cont xarelto resp care stress ulcer prophylaxis psych rx Federico Parham MD Jan 28, 2020 17:04
--- NOTE | 2020-01-28 19:26 | NUR ---
NURSE HAND-OFF: Important Events on Shift:[turning and repositioning, assisting in ADLs, safety and comfort] Patient Status: [stable] Diet: [regular] Pending Orders: [] Pending Results/Labs:[] Pending MD notification:[] Latest Vital Signs: Temperature 98.7 , Pulse 74 , B/P 127 /70 , Respiratory Rate 18 , O2 SAT 95 , Nasal Cannula, O2 Flow Rate 2.0 . Vital Sign Comment: [] Latest Johnson Fall Score: 70 Fall Risk: High Risk Safety Measures: Call light Within Reach, Bed Alarm Zone 1, Side Rails Side Rails x3, Bed position Low and Locked. Fall Precautions: Yellow Socks Door Sign Patient Fall Education Report given to [JOSE Ulrich].
--- NOTE | 2020-01-28 19:30 | NUR ---
NURSE NOTES: Received report from rahul mallory. patient on bed, awake and verbally responsive. on room air, no sob, sating 93-95%. with esternal urinary catheter draining well.left forearm iv access, saline lock. denies any pain or discomfort. reiterated to call and ask for assistance to prevent fall or injury. call light and light button within easy reach. bed locked and in lowest position. bed alarm on. will continue plan of care.
[2020-01-28 20:00] VITALS: BP 133/76
[2020-01-28] MEDS: Atorvastatin 20mg tab ORAL SCH (21:05)
[2020-01-29] VITALS: BP 145/71
--- NOTE | 2020-01-29 02:06 | Cardiology Progress Note ---
Subjective DATE OF SERVICE: Jan 28, 2020 No SOB. Saturating well on low flow O2 BP parameters overall well controlled. Patient remains on remdesivir, steroids, and anticoagulation. Objective Last 24 Hour Vital Signs Date Time Temp Pulse Resp B/P (MAP) Pulse Ox O2 Delivery O2 Flow Rate FiO2 01/29/20 00:00 97.1 68 19 145/71 (95) 97 01/28/20 21:05 133/76 01/28/20 21:00 Nasal Cannula 2.0 01/28/20 20:00 97.2 72 19 133/76 (95) 93 01/28/20 16:00 98.7 74 18 127/70 (89) 95 01/28/20 13:26 136/66 01/28/20 12:00 97.7 71 18 136/66 (89) 96 01/28/20 09:00 Nasal Cannula 2.0 01/28/20 08:00 97.8 20 133/72 (92) 93 01/28/20 05:09 128/67 01/28/20 04:00 98.8 63 18 128/67 (87) 93 HEENT: normal ENT inspection RHYTHM: NSR LUNGS: lungs clear bilaterally, no accessory muscle use, diminished breath sounds CARDIAC: normal rate, regular rhythm, gallop/S4 ABDOMEN: normal bowel sounds, soft, no organomegaly EXTREMITIES: trace edema Assessment/Plan Assessment/Plan Covid 19 PNA Hypoxia resolving Bipolar with hx psychosis Hypertension/HHD Diastolic CHF, chr Low lipid parameters on high dose statin Off IVF Monitor volume status; trend BNP. Steroid rx. Titrate antiHTN meds as needed; expect lower BP range once off steroids. On lower dose statin based on recent lipid panel Check O2 sats on room air, and DC oxygen if adequate Adjust anticoagulation to therapeutic dose; DC aspirin to decrease bleeding risk. Alex Gibbons MD Jan 29, 2020 02:06
[2020-01-29 04:00] VITALS: BP 149/70
--- NOTE | 2020-01-29 04:00 | Consultation ---
DATE OF CONSULTATION: 01/21/2020 CARDIOLOGY CONSULTATION CONSULTING PHYSICIAN: Alex Gibbons MD REQUESTING PHYSICIAN: Federico Parham MD REASON FOR CONSULTATION: Cardiovascular management in the setting of COVID-19 pneumonia. HISTORY OF PRESENT ILLNESS: This is a 69-year-old female. She has a significant cardiovascular history. She suffered COVID-19 pneumonia in April of this year and now has had recurrence. In April, her course was complicated by respiratory failure, prolonged mechanical ventilation, and acute renal failure, which she ultimately recovered. Over the past 2 weeks, the patient has had progressive cough and now tested positive for COVID-19 again with hypoxia and shortness of breath worsening. She has had some leg swelling. No chest pain. Her chest x-ray in the emergency room revealed bilateral infiltrates and she has been hypoxic requiring 3 liters nasal cannula. PAST MEDICAL HISTORY: Schizophrenia, history of DVT, obesity, sleep apnea, hypertension with hypertensive heart disease, diastolic dysfunction with history of congestive heart failure, vitamin D deficiency, degenerative disk disease, hyperlipidemia, and metabolic syndrome. ALLERGIES: None. MEDICATIONS: Reviewed. SOCIAL HISTORY: Negative for smoking, alcohol, or substance abuse. FAMILY HISTORY: Notable for hypertension and arrhythmias in her mother and psychiatric disorder in her brother. REVIEW OF SYSTEMS: She is on anticoagulation for DVT. Her outpatient echocardiogram revealed normal ejection fraction with concentric hypertrophy and a diastolic relaxation abnormality, but no significant valvular disease. There is no history of sustained cardiac arrhythmias. There is no history of flow-limiting coronary disease. She does have a history of glucose intolerance. PHYSICAL EXAMINATION: VITAL SIGNS: Temperature afebrile, blood pressure 123/97, heart rate 80, respiratory rate 18. HEENT: Conjunctivae pink. Oropharynx clear. NECK: Supple. No accessory muscle use. Jugular venous pressure, difficult to assess. LUNGS: With few rhonchi. CARDIAC: Regular rhythm and rate. Normal S1, S2 with a fourth heart sound. ABDOMEN: Soft, obese, and nontender. EXTREMITIES: Trace edema. NEUROLOGICAL: Slightly weak on the left side. LABORATORY AND DIAGNOSTIC DATA: Laboratories are reviewed. Electrocardiogram revealed sinus rhythm with possible septal infarction of indeterminate age. 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 PLAN: Antiviral therapy. Intravenous steroids. Continue full anticoagulation. Vitamin supplementation. Monitor volume status and blood pressure parameters, adjust cardiovascular regimen accordingly. Recheck full lipid panel and reassess appropriate dose of statin drug to maintain LDL goal less than 70. Glucose monitoring while on steroids. Alex Gibbons M.D. DR: Sruthi JOB#: [id number] CC:
[2020-01-29] MEDS: HydrALAZINE 50mg tab ORAL SCH ×3 (05:24→21:52)
--- NOTE | 2020-01-29 06:24 | NUR ---
NURSE HAND-OFF: Important Events on Shift:bm(large)x1; oral care done Patient Status: diet Diet: regular Pending Orders: Pending Results/Labs: Pending MD notification: Latest Vital Signs: Temperature 97.6 , Pulse 62 , B/P 147 /70 , Respiratory Rate 19 , O2 SAT 94 , Nasal Cannula, O2 Flow Rate 2.0 . Vital Sign Comment: Latest Johnson Fall Score: 70 Fall Risk: High Risk Safety Measures: Call light Within Reach, Bed Alarm Zone 1, Side Rails Side Rails x3, Bed position Low and Locked. Fall Precautions: Yellow Socks Door Sign Patient Fall Education Addendum: 01/29/20 at 0720 by Marilyn Dubon RN HAND-OFF: Report given to JOSE GUADALUPE.
--- NOTE | 2020-01-29 07:49 | NUR ---
NURSE NOTES: Report received from JOSE Ulrich. Pt awake in bed, alert and oriented x 3, no shortness of breath, no s/sx of discomfort at this time, bed in lowest position with breaks engaged and alarm on, noted with good appetite, on droplet and contact isolation for COVID, IV line present on left FA, will continue to monitor and proceed with plan of care, call light within reach
[2020-01-29 08:00] VITALS: BP 141/89
[2020-01-29] MEDS: Miralax 17gm pkt ORAL SCH (08:48)
[2020-01-29] MEDS: Benztropine 1mg tab ORAL SCH ×2 (08:48→17:21)
[2020-01-29] MEDS: Vitamin D 1000 units Tab ORAL SCH (08:48)
[2020-01-29] MEDS: Sennosides 8.6mg tab ORAL SCH (08:49)
--- NOTE | 2020-01-29 11:47 | Infectious Diseases Prog Note ---
Assessment/Plan Assessment/Plan A; 1. COVID-19 pneumonia. 2. Sleep apnea. 3. Hypertension. 4. Schizophrenia. 5. Morbid obesity PLAN: 1. Finished Remdesivir course 2. Continue isolation. 3. Continue Dexamethasone day # 9 Subjective ROS Limited/Unobtainable: Yes Constitutional: Denies: fever Allergies: Coded Allergies: No Known Allergies (Unverified , 09/04/12) Objective Last 24 Hour Vital Signs Date Time Temp Pulse Resp B/P (MAP) Pulse Ox O2 Delivery O2 Flow Rate FiO2 01/29/20 09:00 Nasal Cannula 2.0 01/29/20 08:00 98.2 87 18 141/89 (106) 95 01/29/20 05:24 147/70 01/29/20 04:00 97.6 62 19 149/70 (96) 94 01/29/20 00:00 97.1 68 19 145/71 (95) 97 01/28/20 21:05 133/76 01/28/20 21:00 Nasal Cannula 2.0 01/28/20 20:00 97.2 72 19 133/76 (95) 93 01/28/20 16:00 98.7 74 18 127/70 (89) 95 01/28/20 13:26 136/66 01/28/20 12:00 97.7 71 18 136/66 (89) 96 Height (Feet): 5 Height (Inches): 3.00 Weight (Pounds): 279 General Appearance: no acute distress HEENT: mucous membranes moist Respiratory/Chest: lungs clear Cardiovascular: normal rate Abdomen: soft, non tender Neurologic/Psychiatric: other - sleeping Current Medications Medications (Trade) Dose Ordered Sig/Turner Route PRN Reason Start Time Stop Time Status Last Admin Dose Admin Acetaminophen (Tylenol) 650 mg Q4H PRN ORAL MILD PAIN 01/21/20 07:45 02/20/20 07:44 Acetaminophen (Tylenol) 650 mg Q4H PRN ORAL fever 01/21/20 07:45 02/20/20 07:44 Aripiprazole (Abilify) 30 mg DAILY ORAL 01/21/20 09:00 03/06/20 08:59 01/29/20 08:48 Atorvastatin Calcium (Lipitor) 20 mg BEDTIME ORAL 01/27/20 21:00 04/26/20 20:59 01/28/20 21:05 Benztropine Mesylate (Cogentin) 1 mg BID ORAL 01/21/20 09:00 02/20/20 08:59 01/29/20 08:48 Dexamethasone (Decadron) 6 mg DAILY ORAL 01/21/20 12:30 01/31/20 12:29 01/29/20 08:48 Hydralazine HCl (Apresoline) 50 mg EVERY 8 HOURS ORAL 01/23/20 14:00 04/22/20 13:59 01/29/20 05:24 Pantoprazole (Protonix) 40 mg DAILY ORAL 01/21/20 09:00 02/20/20 08:59 01/29/20 08:48 Polyethylene Glycol (Miralax) 17 gm DAILY ORAL 01/21/20 09:00 02/20/20 08:59 01/28/20 08:37 Promethazine HCl/ Codeine (Phenergan with Codeine) 5 ml Q4H PRN ORAL For Cough 01/22/20 15:30 02/21/20 15:29 Rivaroxaban (Xarelto) 20 mg QPM ORAL 01/24/20 16:30 04/23/20 16:29 01/28/20 16:19 Sennosides (Senokot) 17.2 mg DAILY ORAL 01/21/20 09:00 02/20/20 08:59 01/28/20 08:38 Vitamin D (Vitamin D) 2,000 intlu DAILY ORAL 01/29/20 09:00 02/20/20 08:59 01/29/20 08:48 Francisco Hilton MD Jan 29, 2020 11:47
[2020-01-29 12:00] VITALS: BP 143/83
[2020-01-29 16:00] VITALS: BP 123/63
[2020-01-29] MEDS: Xarelto 10mg tab ORAL SCH (17:20)
--- NOTE | 2020-01-29 19:08 | NUR ---
NURSE NOTES: Received report from rahul mallory. patient on bed, awake and verbally responsive. on room air, no sob, sating 93-95%. noted with external urinary catheter draining well. left forearm iv access, saline lock.patent and intact. denies any pain or discomfort. reiterated to call and ask for assistance to prevent fall or injury. call light and light button within easy reach. bed locked and in lowest position. bed alarm on. will continue plan of care.
--- NOTE | 2020-01-29 19:15 | NUR ---
NURSE HAND-OFF: Important Events on Shift:[new order for ensure BID, turning and repositioning, monitoring vitals] Patient Status: [stable] Diet: [regular] Pending Orders: [] Pending Results/Labs:[] Pending MD notification:[] Latest Vital Signs: Temperature 97.8 , Pulse 81 , B/P 123 /63 , Respiratory Rate 18 , O2 SAT 96 , Nasal Cannula, O2 Flow Rate 2.0 . Vital Sign Comment: [] Latest Johnson Fall Score: 70 Fall Risk: High Risk Safety Measures: Call light Within Reach, Bed Alarm Zone 1, Side Rails Side Rails x3, Bed position Low and Locked. Fall Precautions: Yellow Socks Door Sign Patient Fall Education Report given to [JOSE Ulrich].
[2020-01-29 20:00] VITALS: BP 113/56
[2020-01-29] MEDS: Atorvastatin 20mg tab ORAL SCH (21:51)
[2020-01-30] VITALS: BP 120/58
--- NOTE | 2020-01-30 01:13 | Cardiology Progress Note ---
Subjective DATE OF SERVICE: Jan 29, 2020 No SOB. Saturating well on low flow O2 BP parameters overall well controlled. Patient completing therapies with remdesivir, steroids, and anticoagulation. Objective Last 24 Hour Vital Signs Date Time Temp Pulse Resp B/P (MAP) Pulse Ox O2 Delivery O2 Flow Rate FiO2 01/30/20 00:00 98.6 67 19 120/58 (78) 96 01/29/20 21:52 125/60 01/29/20 21:00 Room Air 01/29/20 20:00 99.1 72 18 113/56 (75) 96 01/29/20 16:00 97.8 81 18 123/63 (83) 96 01/29/20 13:45 143/83 01/29/20 12:00 98.5 81 18 143/83 (103) 96 01/29/20 09:00 Nasal Cannula 2.0 01/29/20 08:00 98.2 87 18 141/89 (106) 95 01/29/20 05:24 147/70 01/29/20 04:00 97.6 62 19 149/70 (96) 94 ROS: unchanged from my initial evaluation HEENT: normal ENT inspection RHYTHM: NSR LUNGS: lungs clear bilaterally, no accessory muscle use, diminished breath sounds CARDIAC: normal rate, regular rhythm, gallop/S4 ABDOMEN: normal bowel sounds, soft, no organomegaly EXTREMITIES: trace edema Assessment/Plan Assessment/Plan Covid 19 PNA Hypoxia resolving Bipolar with hx psychosis Hypertension/HHD Diastolic CHF, chr Low lipid parameters on high dose statin Off IVF Monitor volume status; trend BNP. Steroid rx. Titrate antiHTN meds as needed; expect lower BP range once off steroids. On lower dose statin based on recent lipid panel Check O2 sats on room air, and DC oxygen if adequate Continue anticoagulation; off aspirin to decrease bleeding risk. Alex Gibbons MD Jan 30, 2020 01:13
[2020-01-30 04:00] VITALS: BP 148/75
[2020-01-30] MEDS: HydrALAZINE 50mg tab ORAL SCH ×3 (05:22→22:22)
[2020-01-30] MEDS ORDERED: ABILIFY15 MG ORAL (06:50)
[2020-01-30] MEDS ORDERED: DECADRON2 MG ORAL ×2 (06:50)
--- NOTE | 2020-01-30 07:36 | NUR ---
HAND-OFF: Report given to srinath Ramirez
--- NOTE | 2020-01-30 07:45 | NUR ---
NURSE NOTES: Received report from JOSE Ulrich. Patient seen on bed, awake and verbally responsive. on room air, no sob, sating well on RA with NC 2L at bedside PRN. noted with external urinary catheter draining well. left forearm iv access, saline lock.patent and intact. denies any pain or discomfort. reiterated to call and ask for assistance to prevent fall or injury. call light and light button within easy reach. bed locked and in lowest position. bed alarm on. will continue plan of care.
[2020-01-30 08:00] VITALS: BP 145/69
[2020-01-30] MEDS: Miralax 17gm pkt ORAL SCH (08:47)
[2020-01-30] MEDS: Benztropine 1mg tab ORAL SCH ×2 (08:47→17:31)
[2020-01-30] MEDS: Vitamin D 1000 units Tab ORAL SCH (08:47)
[2020-01-30] MEDS: Sennosides 8.6mg tab ORAL SCH (08:47)
--- NOTE | 2020-01-30 09:15 | Discharge Summary ---
DATE OF ADMISSION: 01/21/2020 DATE OF DISCHARGE: 01/30/2020 ADMISSION DIAGNOSES: 1. COVID-19 pneumonia. 2. History of stroke. 3. Hypertension. 4. History of DVT. 5. Schizophrenia. 6. Obesity and sleep apnea. DISCHARGE DIAGNOSES: 1. COVID-19 pneumonia. 2. History of stroke. 3. Hypertension. 4. History of DVT. 5. Schizophrenia. 6. Obesity and sleep apnea. HOSPITAL COURSE: The patient was admitted with complaints of COVID-19 pneumonia. She was hypoxic on oxygen at 2 liters. She received remdesivir and Decadron. She did well on discharge. Saturations were improving. She will be discharged back to the custodial facility. She will complete her Decadron for a total of 10 days there. DISCHARGE MEDICATIONS: Please see discharge medication list for discharge medications. DIET: Cardiac diet. ACTIVITY: Ad-rubén. FOLLOWUP: The patient will follow up in 1 to 2 days at custodial facility. Federico Parham M.D. DR: Mitch JOB#: [id number] CC:
--- NOTE | 2020-01-30 11:39 | Infectious Diseases Prog Note ---
Assessment/Plan Assessment/Plan antibiotics : none A 1. recurrent COVID-19 pneumonia. on room air, oxygen saturation of 96 %. s/p remdesivir 2. prior history of COVID-19 pneumonia at [facility] 3. Sleep apnea. 4. Hypertension. 5. Schizophrenia. P 1. complete dexamethasone day 10 2. We will follow up patient clinically. 3. Continue isolation. Subjective ROS Limited/Unobtainable: Yes Allergies: Coded Allergies: No Known Allergies (Unverified , 09/04/12) Objective Last 24 Hour Vital Signs Date Time Temp Pulse Resp B/P (MAP) Pulse Ox O2 Delivery O2 Flow Rate FiO2 01/30/20 09:00 Room Air 01/30/20 08:00 96.8 85 20 145/69 (94) 96 01/30/20 05:22 148/75 01/30/20 04:00 97.8 82 19 148/75 (99) 96 01/30/20 00:00 98.6 67 19 120/58 (78) 96 01/29/20 21:52 125/60 01/29/20 21:00 Room Air 01/29/20 20:00 99.1 72 18 113/56 (75) 96 01/29/20 16:00 97.8 81 18 123/63 (83) 96 01/29/20 13:45 143/83 01/29/20 12:00 98.5 81 18 143/83 (103) 96 Height (Feet): 5 Height (Inches): 3.00 Weight (Pounds): 279 Current Medications Medications (Trade) Dose Ordered Sig/Turner Route PRN Reason Start Time Stop Time Status Last Admin Dose Admin Acetaminophen (Tylenol) 650 mg Q4H PRN ORAL MILD PAIN 01/21/20 07:45 02/20/20 07:44 Acetaminophen (Tylenol) 650 mg Q4H PRN ORAL fever 01/21/20 07:45 02/20/20 07:44 Aripiprazole (Abilify) 30 mg DAILY ORAL 01/21/20 09:00 03/06/20 08:59 01/30/20 08:46 Atorvastatin Calcium (Lipitor) 20 mg BEDTIME ORAL 01/27/20 21:00 04/26/20 20:59 01/29/20 21:51 Benztropine Mesylate (Cogentin) 1 mg BID ORAL 01/21/20 09:00 02/20/20 08:59 01/30/20 08:47 Dexamethasone (Decadron) 6 mg DAILY ORAL 01/21/20 12:30 01/31/20 12:29 01/30/20 08:47 Hydralazine HCl (Apresoline) 50 mg EVERY 8 HOURS ORAL 01/23/20 14:00 04/22/20 13:59 01/30/20 05:22 Pantoprazole (Protonix) 40 mg DAILY ORAL 01/21/20 09:00 02/20/20 08:59 01/30/20 08:47 Polyethylene Glycol (Miralax) 17 gm DAILY ORAL 01/21/20 09:00 02/20/20 08:59 01/30/20 08:47 Promethazine HCl/ Codeine (Phenergan with Codeine) 5 ml Q4H PRN ORAL For Cough 01/22/20 15:30 02/21/20 15:29 Rivaroxaban (Xarelto) 20 mg QPM ORAL 01/24/20 16:30 04/23/20 16:29 01/29/20 17:20 Sennosides (Senokot) 17.2 mg DAILY ORAL 01/21/20 09:00 02/20/20 08:59 01/30/20 08:47 Vitamin D (Vitamin D) 2,000 intlu DAILY ORAL 01/29/20 09:00 02/20/20 08:59 01/30/20 08:47 Sebastian Dumont MD Jan 30, 2020 11:38
[2020-01-30 12:00] VITALS: BP 150/76
[2020-01-30] MEDS: Xarelto 10mg tab ORAL SCH (15:59)
[2020-01-30 16:00] VITALS: BP 135/62
--- NOTE | 2020-01-30 19:23 | NUR ---
NURSE NOTES: Received report from JOSE Cruz. Patient is sitting up in bed, awake, alert and verbally responsive. on room air, no sob, satting well on RA (has NC 2L available/ordered PRN. Has purewicke female external catheter draining well. left forearm IV access, saline lock, patent, asymptomatic. denies any pain or discomfort. Informed pt to call and ask for assistance as needed to prevent fall or injury. call light within easy reach. bed is locked and in lowest position, side rails x2, bed alarm on. Will continue plan of care.
--- NOTE | 2020-01-30 19:29 | NUR ---
HAND-OFF: Report given to JOSE Lizarraga.
[2020-01-30 20:00] VITALS: BP 140/70
[2020-01-30] MEDS: Atorvastatin 20mg tab ORAL SCH (22:22)
[2020-01-31] VITALS: BP 139/87
--- NOTE | 2020-01-31 00:11 | Cardiology Progress Note ---
Subjective DATE OF SERVICE: Jan 30, 2020 No SOB. Continues saturating well on low flow O2 BP parameters overall well controlled. Patient completed therapies with remdesivir, steroids, and anticoagulation. Objective Last 24 Hour Vital Signs Date Time Temp Pulse Resp B/P (MAP) Pulse Ox O2 Delivery O2 Flow Rate FiO2 01/30/20 22:22 135/62 01/30/20 20:00 98.1 67 20 140/70 (93) 94 01/30/20 16:00 98.1 63 20 135/62 (86) 95 01/30/20 13:06 150/76 01/30/20 12:00 98.5 77 20 150/76 (100) 96 01/30/20 09:00 Room Air 01/30/20 08:00 96.8 85 20 145/69 (94) 96 01/30/20 05:22 148/75 01/30/20 04:00 97.8 82 19 148/75 (99) 96 ROS: unchanged from my initial evaluation HEENT: normal ENT inspection RHYTHM: NSR LUNGS: lungs clear bilaterally, no accessory muscle use, diminished breath sounds CARDIAC: normal rate, regular rhythm, gallop/S4 ABDOMEN: normal bowel sounds, soft, no organomegaly EXTREMITIES: trace edema Assessment/Plan Assessment/Plan Covid 19 PNA Hypoxia resolving Bipolar with hx psychosis Hypertension/HHD Diastolic CHF, chr Low lipid parameters on high dose statin Off IVF Monitor volume status; trend BNP. Steroid rx completed. Titrate antiHTN meds as needed; expect lower BP range once off steroids. On lower dose statin based on recent lipid panel Check O2 sats on room air, and DC oxygen if adequate Continue anticoagulation for DVT prophylaxis; off aspirin to decrease bleeding risk. Alex Gibbons MD Jan 31, 2020 00:11
--- NOTE | 2020-01-31 01:39 | NUR ---
NURSE HAND-OFF: Important Events on Shift:[new order for ensure BID started yesterday, turning and repositioning, monitoring vitals, purewicke fills rapidly, urinates frequently] Patient Status: [stable] Diet: [regular diet, meds whole] Plan dexamethasone on 01/30 progressing toward D/c no active dc order Latest Vital Signs: Temperature 97.8 , Pulse 81 , B/P 123 /63 , Respiratory Rate 18 , O2 SAT 96 , Nasal Cannula, O2 Flow Rate 2.0 . Vital Sign Comment: [] Latest Johnson Fall Score: 70 Fall Risk: High Risk Safety Measures: Call light Within Reach, Bed Alarm Zone 1, Side Rails Side Rails x3, Bed position Low and Locked. Fall Precautions: Yellow Socks Door Sign Patient Fall Education Report given to Valerie GARCIA Addendum: 01/31/20 at 0141 by Renee Fernandez RN Report given to JOSE Dutton
[2020-01-31 04:00] VITALS: BP 155/78
[2020-01-31] MEDS: HydrALAZINE 50mg tab ORAL SCH ×3 (06:25→21:09)
--- NOTE | 2020-01-31 07:45 | NUR ---
NURSE HAND-OFF: Important Events on Shift: Hygiene Patient Status: Diet: regular Pending Orders: Pending Results/Labs: Pending MD notification: Latest Vital Signs: Temperature 96.8 , Pulse 67 , B/P 140 /71 , Respiratory Rate 18 , O2 SAT 95 , Room Air, O2 Flow Rate 2.0 . Vital Sign Comment: Latest Johnson Fall Score: 70 Fall Risk: High Risk Safety Measures: Call light Within Reach, Bed Alarm Zone 1, Side Rails Side Rails x2, Bed position Low and Locked. Fall Precautions: Yellow Socks Yellow Gown Door Sign Patient Fall Education Report given to JOSE Cruz.
[2020-01-31 08:00] VITALS: BP 143/72
[2020-01-31] MEDS: Benztropine 1mg tab ORAL SCH ×2 (08:38→17:06)
[2020-01-31] MEDS: Miralax 17gm pkt ORAL SCH (08:38)
[2020-01-31] MEDS: Sennosides 8.6mg tab ORAL SCH (08:38)
[2020-01-31] MEDS: Vitamin D 1000 units Tab ORAL SCH (08:38)
[2020-01-31 12:00] VITALS: BP 119/64
--- NOTE | 2020-01-31 12:10 | General Progress Note ---
Subjective ROS Limited/Unobtainable: No Constitutional: Reports: malaise, weakness HEENT: Reports: no symptoms Cardiovascular: Reports: no symptoms Respiratory: Reports: cough, shortness of breath Gastrointestinal/Abdominal: Reports: no symptoms Genitourinary: Reports: no symptoms Neurologic/Psychiatric: Reports: no symptoms Endocrine: Reports: no symptoms Hematologic/Lymphatic: Reports: no symptoms Allergies: Coded Allergies: No Known Allergies (Unverified , 09/04/12) All Systems: reviewed and negative except above Subjective stable. overall feels better. on 2L. no fever or chills. no cp. likes it in the hospital and prefers to stay Objective Last 24 Hour Vital Signs Date Time Temp Pulse Resp B/P (MAP) Pulse Ox O2 Delivery O2 Flow Rate FiO2 01/31/20 12:00 98.1 69 9 119/64 (82) 96 01/31/20 09:00 Room Air 01/31/20 08:00 97.2 70 18 143/72 (95) 94 01/31/20 06:25 140/71 01/31/20 04:00 96.8 67 18 155/78 (103) 95 01/31/20 00:00 97.3 66 18 139/87 (104) 94 01/30/20 22:22 135/62 01/30/20 21:00 Room Air 01/30/20 20:00 98.1 67 20 140/70 (93) 94 01/30/20 16:00 98.1 63 20 135/62 (86) 95 01/30/20 13:06 150/76 Intake and Output 01/30/20 01/31/20 19:00 07:00 Intake Total 960 ml 600 ml Output Total 1900 ml 1800 ml Balance -940 ml -1200 ml Intake Oral 760 ml Other 200 ml 600 ml Output Urine Total 1900 ml 1800 ml Height (Feet): 5 Height (Inches): 3.00 Weight (Pounds): 279 Objective General Appearance: WD/WN, alert EENT: PERRL/EOMI, normal ENT inspection Neck: non-tender, normal alignment, supple Cardiovascular: normal peripheral pulses, normal rate Respiratory/Chest: chest wall non-tender, lungs clear, normal breath sounds, no respiratory distress Abdomen: normal bowel sounds, non tender, soft, no organomegaly Edema: no edema noted Arm (L), no edema noted Arm (R), no edema noted Leg (L), no edema noted Leg (R) 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, alert, oriented x 3, responsive Skin: normal pigmentation Assessment/Plan Problem List: (1) CVA (cerebral vascular accident) ICD Codes: I63.9 - Cerebral infarction, unspecified SNOMED: 902866177 (2) CHF (congestive heart failure) ICD Codes: I50.9 - Heart failure, unspecified SNOMED: 03246487 (3) HTN (hypertension), malignant ICD Codes: I10 - Essential (primary) hypertension SNOMED: 70482139 (4) Pneumonia ICD Codes: J18.9 - Pneumonia, unspecified organism SNOMED: 673596161 (5) 2019 novel coronavirus detected ICD Codes: U07.1 - COVID-19 SNOMED: 6615163608610834 Status: stable Assessment/Plan: cont current rx o2 as needed. on chronic o2 at snf remdesivir and steroids cont xarelto resp care stress ulcer prophylaxis psych rx Federico Parham MD Jan 31, 2020 12:10
--- NOTE | 2020-01-31 14:26 | Infectious Diseases Prog Note ---
Assessment/Plan Assessment/Plan A; 1. COVID-19 pneumonia. 2. Sleep apnea. 3. Hypertension. 4. Schizophrenia. 5. Morbid obesity PLAN: 1. Finished Remdesivir & Dexamethasone course 2. Continue isolation. Subjective ROS Limited/Unobtainable: Yes Allergies: Coded Allergies: No Known Allergies (Unverified , 09/04/12) Objective Last 24 Hour Vital Signs Date Time Temp Pulse Resp B/P (MAP) Pulse Ox O2 Delivery O2 Flow Rate FiO2 01/31/20 13:44 130/70 01/31/20 12:00 98.1 69 9 119/64 (82) 96 01/31/20 09:00 Room Air 01/31/20 08:00 97.2 70 18 143/72 (95) 94 01/31/20 06:25 140/71 01/31/20 04:00 96.8 67 18 155/78 (103) 95 01/31/20 00:00 97.3 66 18 139/87 (104) 94 01/30/20 22:22 135/62 01/30/20 21:00 Room Air 01/30/20 20:00 98.1 67 20 140/70 (93) 94 01/30/20 16:00 98.1 63 20 135/62 (86) 95 Height (Feet): 5 Height (Inches): 3.00 Weight (Pounds): 279 General Appearance: no acute distress HEENT: mucous membranes moist Respiratory/Chest: other - oxygen by nasal cannula Cardiovascular: normal rate Abdomen: soft, non tender Neurologic/Psychiatric: other - sleeping Current Medications Medications (Trade) Dose Ordered Sig/Turner Route PRN Reason Start Time Stop Time Status Last Admin Dose Admin Acetaminophen (Tylenol) 650 mg Q4H PRN ORAL MILD PAIN 01/21/20 07:45 02/20/20 07:44 Acetaminophen (Tylenol) 650 mg Q4H PRN ORAL fever 01/21/20 07:45 02/20/20 07:44 Aripiprazole (Abilify) 30 mg DAILY ORAL 01/21/20 09:00 03/06/20 08:59 01/31/20 08:38 Atorvastatin Calcium (Lipitor) 20 mg BEDTIME ORAL 01/27/20 21:00 04/26/20 20:59 01/30/20 22:22 Benztropine Mesylate (Cogentin) 1 mg BID ORAL 01/21/20 09:00 02/20/20 08:59 01/31/20 08:38 Hydralazine HCl (Apresoline) 50 mg EVERY 8 HOURS ORAL 01/23/20 14:00 04/22/20 13:59 01/31/20 13:44 Pantoprazole (Protonix) 40 mg DAILY ORAL 01/21/20 09:00 02/20/20 08:59 01/31/20 08:38 Polyethylene Glycol (Miralax) 17 gm DAILY ORAL 01/21/20 09:00 02/20/20 08:59 01/31/20 08:38 Promethazine HCl/ Codeine (Phenergan with Codeine) 5 ml Q4H PRN ORAL For Cough 01/22/20 15:30 02/21/20 15:29 Rivaroxaban (Xarelto) 20 mg QPM ORAL 01/24/20 16:30 04/23/20 16:29 01/30/20 15:59 Sennosides (Senokot) 17.2 mg DAILY ORAL 01/21/20 09:00 02/20/20 08:59 01/31/20 08:38 Vitamin D (Vitamin D) 2,000 intlu DAILY ORAL 01/29/20 09:00 02/20/20 08:59 01/31/20 08:38 Francisco Hilton MD Jan 31, 2020 14:26
[2020-01-31 16:00] VITALS: BP 135/70
[2020-01-31] MEDS: Xarelto 10mg tab ORAL SCH (16:37)
--- NOTE | 2020-01-31 19:28 | NUR ---
NURSE HAND-OFF: Important Events on Shift: bowel movement Patient Status: stable Diet: regular Pending Orders: n/a Pending Results/Labs:n/a Pending MD notification:n/a Latest Vital Signs: Temperature 97.0 , Pulse 75 , B/P 135 /70 , Respiratory Rate 19 , O2 SAT 96 , Room Air, O2 Flow Rate 2.0 . Vital Sign Comment: stable Latest Johnson Fall Score: 70 Fall Risk: High Risk Safety Measures: Call light Within Reach, Bed Alarm Zone 1, Side Rails Side Rails x2, Bed position Low and Locked. Fall Precautions: Yellow Socks Yellow Gown Door Sign Patient Fall Education Report given to JOSE Sandoval.
--- NOTE | 2020-01-31 19:35 | NUR ---
NURSE NOTES: The patient is alert and oriented x4, She has PRN oxygen @ 2 liters via NC which she cam independently put on and takes off as desires. He doesn't seem to be in any active distress at this time.The Resp is even and unlabored. She is on 2 liters of oxygen via NC well tolerated.She has a left FA 20g saline log that is patent and asymptomatic.The bed in low level, call light within easy reach. Will continue to monitor as indicated.
[2020-01-31 20:00] VITALS: BP 128/62
[2020-01-31] MEDS: Atorvastatin 20mg tab ORAL SCH (21:08)
[2020-02-01] VITALS: BP 135/62
--- NOTE | 2020-02-01 02:27 | Cardiology Progress Note ---
Subjective DATE OF SERVICE: Jan 31, 2020 No SOB. Continues saturating well on low flow O2 BP parameters overall well controlled. Patient completed therapies with remdesivir, steroids, and anticoagulation. Objective Last 24 Hour Vital Signs Date Time Temp Pulse Resp B/P (MAP) Pulse Ox O2 Delivery O2 Flow Rate FiO2 02/01/20 00:00 98.1 83 17 135/62 (86) 98 01/31/20 21:09 128/62 01/31/20 21:00 Room Air 01/31/20 20:00 97.8 79 20 128/62 (84) 98 01/31/20 16:00 97.0 75 19 135/70 (91) 96 01/31/20 13:44 130/70 01/31/20 12:00 98.1 69 9 119/64 (82) 96 01/31/20 09:00 Room Air 01/31/20 08:00 97.2 70 18 143/72 (95) 94 01/31/20 06:25 140/71 01/31/20 04:00 96.8 67 18 155/78 (103) 95 ROS: unchanged from my initial evaluation HEENT: normal ENT inspection RHYTHM: NSR LUNGS: lungs clear bilaterally, no accessory muscle use, diminished breath sounds CARDIAC: normal rate, regular rhythm, gallop/S4 ABDOMEN: normal bowel sounds, soft, no organomegaly EXTREMITIES: trace edema Assessment/Plan Assessment/Plan Covid 19 PNA Hypoxia resolving Bipolar with hx psychosis Hypertension/HHD Diastolic CHF, chr Low lipid parameters on high dose statin - now with dose adjustment Off IVF Monitor volume status; trend BNP. Steroid rx completed. Titrate antiHTN meds as needed; expect lower BP range once off steroids. On lower dose statin based on recent lipid panel Suppl O2 prn Continue anticoagulation for DVT prophylaxis; off aspirin to decrease bleeding risk. Alex Gibbons MD Feb 01, 2020 02:27
[2020-02-01 04:00] VITALS: BP 130/65
[2020-02-01] MEDS: HydrALAZINE 50mg tab ORAL SCH ×3 (06:36→21:35)
--- NOTE | 2020-02-01 06:59 | NUR ---
NURSE NOTES: The patient is alert and stable and was able to sleep for about 8 hrs last night will continue to monitor as indicated
--- NOTE | 2020-02-01 07:02 | NUR ---
NURSE HAND-OFF: Important Events on Shift:Alert and stable Patient Status: Diet: Pending Orders: Pending Results/Labs: Pending MD notification: Latest Vital Signs: Temperature 98.2 , Pulse 77 , B/P 130 /65 , Respiratory Rate 19 , O2 SAT 97 , Room Air, O2 Flow Rate 2.0 . Vital Sign Comment: Latest Johnson Fall Score: 70 Fall Risk: High Risk Safety Measures: Call light Within Reach, Bed Alarm Zone 1, Side Rails Side Rails x2, Bed position Low and Locked. Fall Precautions: Yellow Socks Yellow Gown Door Sign Patient Fall Education Report given to .:
[2020-02-01 08:00] VITALS: BP 133/69
--- NOTE | 2020-02-01 08:04 | NUR ---
NURSE NOTES: Report received from Duy. Patient AAOx3. No signs of respiratory distress noted. Verbally responsive. No pain. Bed in lowest position and locked. Plan of care communicated. IV site asymptomatic, flushed and patent. Call light within reach. Will continue to monitor.
[2020-02-01] MEDS: Sennosides 8.6mg tab ORAL SCH (08:46)
[2020-02-01] MEDS: Vitamin D 1000 units Tab ORAL SCH (08:46)
[2020-02-01] MEDS: Benztropine 1mg tab ORAL SCH ×2 (08:46→17:27)
[2020-02-01] MEDS: Miralax 17gm pkt ORAL SCH (08:55)
--- NOTE | 2020-02-01 09:06 | General Progress Note ---
Subjective Constitutional: Reports: malaise, weakness HEENT: Reports: no symptoms Cardiovascular: Reports: no symptoms Respiratory: Reports: shortness of breath Gastrointestinal/Abdominal: Reports: no symptoms Genitourinary: Reports: no symptoms Neurologic/Psychiatric: Reports: no symptoms Endocrine: Reports: no symptoms Hematologic/Lymphatic: Reports: no symptoms Allergies: Coded Allergies: No Known Allergies (Unverified , 09/04/12) All Systems: reviewed and negative except above Subjective overall better. on room air. previously on o2 at snf(for months.) no chest pain or sob. no fevers. Objective Last 24 Hour Vital Signs Date Time Temp Pulse Resp B/P (MAP) Pulse Ox O2 Delivery O2 Flow Rate FiO2 02/01/20 06:36 130/65 02/01/20 04:00 98.2 77 19 130/65 (86) 97 02/01/20 00:00 98.1 83 17 135/62 (86) 98 01/31/20 21:09 128/62 01/31/20 21:00 Room Air 01/31/20 20:00 97.8 79 20 128/62 (84) 98 01/31/20 16:00 97.0 75 19 135/70 (91) 96 01/31/20 13:44 130/70 01/31/20 12:00 98.1 69 9 119/64 (82) 96 Intake and Output 01/31/20 02/01/20 19:00 07:00 Intake Total 800 ml 780 ml Output Total 1500 ml 900 ml Balance -700 ml -120 ml Intake Oral 600 ml 780 ml Other 200 ml Output Urine Total 1500 ml 900 ml # Voids 1 Height (Feet): 5 Height (Inches): 3.00 Weight (Pounds): 279 Objective General Appearance: WD/WN, alert EENT: PERRL/EOMI, normal ENT inspection Neck: non-tender, normal alignment, supple Cardiovascular: normal peripheral pulses, normal rate Respiratory/Chest: chest wall non-tender, lungs clear, normal breath sounds, no respiratory distress Abdomen: normal bowel sounds, non tender, soft, no organomegaly Edema: no edema noted Arm (L), no edema noted Arm (R), no edema noted Leg (L), no edema noted 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 (R) 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, alert, oriented x 3, responsive Skin: normal pigmentation Assessment/Plan Problem List: (1) CVA (cerebral vascular accident) ICD Codes: I63.9 - Cerebral infarction, unspecified SNOMED: 678438808 (2) CHF (congestive heart failure) ICD Codes: I50.9 - Heart failure, unspecified SNOMED: 64004123 (3) HTN (hypertension), malignant ICD Codes: I10 - Essential (primary) hypertension SNOMED: 16276314 (4) Pneumonia ICD Codes: J18.9 - Pneumonia, unspecified organism SNOMED: 575599478 (5) 2019 novel coronavirus detected ICD Codes: U07.1 - COVID-19 SNOMED: 3596190145536503 Status: stable Assessment/Plan: cont current rx o2 as needed. on chronic o2 at snf remdesivir and steroids cont xarelto resp care stress ulcer prophylaxis psych rx dc planning when bed available Federico Parham MD Feb 01, 2020 09:06
[2020-02-01 10:47] LABS: HEMATOCRIT 32.8 % (37.0-47.0); HEMOGLOBIN 11.4 G/DL (12.0-16.0); MEAN CORPUSCULAR VOLUME 88 FL (80-99); PLATELET COUNT 283 K/UL (150-450); RED BLOOD COUNT 3.71 M/UL (4.20-5.40); RED CELL DISTRIBUTION WIDTH 15.8 % (11.6-14.8); WHITE BLOOD COUNT 16.7 K/UL (4.8-10.8)
[2020-02-01 11:03] LABS: ALANINE AMINOTRANSFERASE 25 U/L (12-78); ALBUMIN 2.4 G/DL (3.4-5.0); ALBUMIN/GLOBULIN RATIO 0.5 (1.0-2.7); ALKALINE PHOSPHATASE 65 U/L (46-116); ANION GAP 4 mmol/L (5-15); ASPARTATE AMINO TRANSFERASE 15 U/L (15-37); BILIRUBIN,TOTAL 0.2 MG/DL (0.2-1.0); BLOOD UREA NITROGEN 25 mg/dL (7-18); CALCIUM 8.6 MG/DL (8.5-10.1); CARBON DIOXIDE 34 MMOL/L (21-32); CHLORIDE 103 MMOL/L (98-107); CREATININE 0.6 MG/DL (0.55-1.30); POTASSIUM 3.8 MMOL/L (3.5-5.1); SODIUM 141 MMOL/L (136-145)
[2020-02-01 12:00] VITALS: BP 139/76
[2020-02-01] MEDS: Xarelto 10mg tab ORAL SCH (15:57)
[2020-02-01 16:00] VITALS: BP 136/66
--- NOTE | 2020-02-01 19:21 | NUR ---
NURSE HAND-OFF: Important Events on Shift:[O2 PRN, reflux precaution] Patient Status: stable Diet: soft easy chew Pending Orders: [n/a] Pending Results/Labs:[n/a] Pending MD notification:[n/a] Latest Vital Signs: Temperature 98.8 , Pulse 82 , B/P 136 /66 , Respiratory Rate 20 , O2 SAT 99 , Room Air, O2 Flow Rate 2.0 . Vital Sign Comment: [stable] Latest Johnson Fall Score: 70 Fall Risk: High Risk Safety Measures: Call light Within Reach, Bed Alarm Zone 1, Side Rails Side Rails x2, Bed position Low and Locked. Fall Precautions: Yellow Socks Yellow Gown Door Sign Patient Fall Education Report given to [Duy].
--- NOTE | 2020-02-01 19:25 | NUR ---
NURSE NOTES: The patient is alert and oriented x4 and does not seem to be in any active distress at this time.She has PRN oxygen @ 2 liters via NC which she can independently put on and takes off as desires.The Resp is even and unlabored. She has a left FA 20g saline log that is patent and asymptomatic.The bed in low level, call light within easy reach. Will continue to monitor as indicated.
[2020-02-01 20:00] VITALS: BP 122/55
[2020-02-01] MEDS: Atorvastatin 20mg tab ORAL SCH (21:36)
[2020-02-02] VITALS: BP 105/56
--- NOTE | 2020-02-02 02:43 | Cardiology Progress Note ---
Subjective DATE OF SERVICE: Feb 01, 2020 No SOB. Continues saturating well on low flow O2 BP parameters overall well controlled. Patient completed therapies with remdesivir, steroids, and anticoagulation. Objective Last 24 Hour Vital Signs Date Time Temp Pulse Resp B/P (MAP) Pulse Ox O2 Delivery O2 Flow Rate FiO2 02/02/20 00:00 97.1 67 20 105/56 (72) 97 02/01/20 21:35 136/60 02/01/20 21:00 Room Air 02/01/20 20:00 98.1 70 16 122/55 (77) 95 02/01/20 16:00 98.8 82 20 136/66 (89) 99 02/01/20 13:02 139/76 02/01/20 12:00 97.6 66 18 139/76 (97) 98 02/01/20 10:47 Room Air 02/01/20 08:00 98.5 66 18 133/69 (90) 99 02/01/20 06:36 130/65 02/01/20 04:00 98.2 77 19 130/65 (86) 97 ROS: unchanged from my initial evaluation HEENT: normal ENT inspection RHYTHM: NSR LUNGS: lungs clear bilaterally, no accessory muscle use, diminished breath sounds CARDIAC: normal rate, regular rhythm, gallop/S4 ABDOMEN: normal bowel sounds, soft, no organomegaly EXTREMITIES: trace edema Laboratory Tests Test 02/01/20 10:20 White Blood Count 16.7 K/UL (4.8-10.8) H Red Blood Count 3.71 M/UL (4.20-5.40) L Hemoglobin 11.4 G/DL (12.0-16.0) L Hematocrit 32.8 % (37.0-47.0) L Mean Corpuscular Volume 88 FL (80-99) Mean Corpuscular Hemoglobin 30.8 PG (27.0-31.0) Mean Corpuscular Hemoglobin Concent 34.8 G/DL (32.0-36.0) Red Cell Distribution Width 15.8 % (11.6-14.8) H Platelet Count 283 K/UL (150-450) Mean Platelet Volume 7.4 FL (6.5-10.1) Neutrophils (%) (Auto) % (45.0-75.0) Lymphocytes (%) (Auto) % (20.0-45.0) Monocytes (%) (Auto) % (1.0-10.0) Eosinophils (%) (Auto) % (0.0-3.0) Basophils (%) (Auto) % (0.0-2.0) Differential Total Cells Counted 100 Neutrophils % (Manual) 76 % (45-75) H Lymphocytes % (Manual) 21 % (20-45) Monocytes % (Manual) 3 % (1-10) Eosinophils % (Manual) 0 % (0-3) Basophils % (Manual) 0 % (0-2) Band Neutrophils 0 % (0-8) Platelet Estimate Adequate Platelet Morphology Normal Anisocytosis 1+ Sodium Level 141 MMOL/L (136-145) Potassium Level 3.8 MMOL/L (3.5-5.1) Chloride Level 103 MMOL/L (98-107) Carbon Dioxide Level 34 MMOL/L (21-32) H Anion Gap 4 mmol/L (5-15) L Blood Urea Nitrogen 25 mg/dL (7-18) H Creatinine 0.6 MG/DL (0.55-1.30) Estimat Glomerular Filtration Rate > 60 mL/min (>60) Glucose Level 105 MG/DL (74-106) Calcium Level 8.6 MG/DL (8.5-10.1) Magnesium Level 1.9 MG/DL (1.8-2.4) Total Bilirubin 0.2 MG/DL (0.2-1.0) Aspartate Amino Transf (AST/SGOT) 15 U/L (15-37) Alanine Aminotransferase (ALT/SGPT) 25 U/L (12-78) Alkaline Phosphatase 65 U/L (46-116) Total Protein 6.9 G/DL (6.4-8.2) Albumin 2.4 G/DL (3.4-5.0) L Globulin 4.5 g/dL Albumin/Globulin Ratio 0.5 (1.0-2.7) L Assessment/Plan Assessment/Plan Covid 19 PNA Hypoxia resolving Bipolar with hx psychosis Hypertension/HHD Diastolic CHF, chr Low lipid parameters on high dose statin - now with dose adjustment Off IVF Monitor volume status; trend BNP. Steroid rx completed Titrate antiHTN meds as needed; expect lower BP range once off steroids. On lower dose statin based on recent lipid panel Suppl O2 prn Continue anticoagulation for DVT prophylaxis; off aspirin to decrease bleeding risk. Alex Gibbons MD Feb 02, 2020 02:43
[2020-02-02 04:00] VITALS: BP 116/79
--- NOTE | 2020-02-02 06:21 | NUR ---
NURSE NOTES: The patient is alert and stable and was able to sleep all
[2020-02-02] MEDS: HydrALAZINE 50mg tab ORAL SCH ×3 (06:27→21:08)
--- NOTE | 2020-02-02 07:10 | NUR ---
NURSE HAND-OFF: Important Events on Shift:Alert and stable and was able to sleep all night long. Patient Status: Diet: Pending Orders: Pending Results/Labs: Pending MD notification: Latest Vital Signs: Temperature 98.2 , Pulse 74 , B/P 131 /79 , Respiratory Rate 18 , O2 SAT 94 , Room Air, O2 Flow Rate 2.0 . Vital Sign Comment: Latest Johnson Fall Score: 70 Fall Risk: High Risk Safety Measures: Call light Within Reach, Bed Alarm Zone 1, Side Rails Side Rails x2, Bed position Low and Locked. Fall Precautions: Yellow Socks Yellow Gown Door Sign Patient Fall Education Report given to .
[2020-02-02 08:00] VITALS: BP 131/80
[2020-02-02] MEDS: Miralax 17gm pkt ORAL SCH (08:39)
[2020-02-02] MEDS: Benztropine 1mg tab ORAL SCH ×2 (08:39→17:09)
[2020-02-02] MEDS: Vitamin D 1000 units Tab ORAL SCH (08:39)
[2020-02-02] MEDS: Sennosides 8.6mg tab ORAL SCH (08:40)
--- NOTE | 2020-02-02 09:18 | NUR ---
*-*DISCHARGE PLAN*-* PATIENT HAS BEEN REFERRED TO: [facility] P: [phone] ROOM# 17.A CHECK IF ROOM IS STILL AVAILABLE , UPON DISCHARGE.
--- NOTE | 2020-02-02 09:33 | NUR ---
NURSE NOTES: received patient resting comfortably in bed, patient is awake, alert and oriented x4 , no sign of respiratory distress, on RA at this , patient has a prn order for oxygen @ 2 liters via NC which she can independently put on and takes off as desires.HL patent, on fall, and covid isolation, both side rails up for safety, bed in low level, call light within easy reach. Will continue to monitor patient condition rahul quarles
[2020-02-02 12:01] VITALS: BP 119/56
--- NOTE | 2020-02-02 12:22 | Infectious Diseases Prog Note ---
Assessment/Plan Assessment/Plan antibiotics : none A 1. recurrent COVID-19 pneumonia. on room air, oxygen saturation of 99 %. s/p remdesivir s/p dexamethasone 2. Sleep apnea. 3. Hypertension. 4. Schizophrenia. P 1. continue off antibiotics 2. We will follow up patient clinically. 3. Continue isolation. Subjective ROS Limited/Unobtainable: Yes Allergies: Coded Allergies: No Known Allergies (Unverified , 09/04/12) Objective Last 24 Hour Vital Signs Date Time Temp Pulse Resp B/P (MAP) Pulse Ox O2 Delivery O2 Flow Rate FiO2 02/02/20 12:01 97.2 81 18 119/56 (77) 94 02/02/20 08:35 Room Air 02/02/20 08:00 98.1 69 20 131/80 (97) 94 02/02/20 06:27 131/79 02/02/20 04:00 98.2 74 18 116/79 (91) 94 02/02/20 00:00 97.1 67 20 105/56 (72) 97 02/01/20 21:35 136/60 02/01/20 21:00 Room Air 02/01/20 20:00 98.1 70 16 122/55 (77) 95 02/01/20 16:00 98.8 82 20 136/66 (89) 99 02/01/20 13:02 139/76 Height (Feet): 5 Height (Inches): 3.00 Weight (Pounds): 279 Current Medications Medications (Trade) Dose Ordered Sig/Turner Route PRN Reason Start Time Stop Time Status Last Admin Dose Admin Acetaminophen (Tylenol) 650 mg Q4H PRN ORAL MILD PAIN 01/21/20 07:45 02/20/20 07:44 Acetaminophen (Tylenol) 650 mg Q4H PRN ORAL fever 01/21/20 07:45 02/20/20 07:44 Aripiprazole (Abilify) 30 mg DAILY ORAL 01/21/20 09:00 03/06/20 08:59 02/02/20 08:39 Atorvastatin Calcium (Lipitor) 20 mg BEDTIME ORAL 01/27/20 21:00 04/26/20 20:59 02/01/20 21:36 Benztropine Mesylate (Cogentin) 1 mg BID ORAL 01/21/20 09:00 02/20/20 08:59 02/02/20 08:39 Hydralazine HCl (Apresoline) 50 mg EVERY 8 HOURS ORAL 01/23/20 14:00 04/22/20 13:59 02/02/20 06:27 Pantoprazole (Protonix) 40 mg DAILY ORAL 01/21/20 09:00 02/20/20 08:59 02/02/20 08:40 Polyethylene Glycol (Miralax) 17 gm DAILY ORAL 01/21/20 09:00 02/20/20 08:59 02/02/20 08:39 Promethazine HCl/ Codeine (Phenergan with Codeine) 5 ml Q4H PRN ORAL For Cough 01/22/20 15:30 02/21/20 15:29 02/02/20 06:27 Rivaroxaban (Xarelto) 20 mg QPM ORAL 01/24/20 16:30 04/23/20 16:29 02/01/20 15:57 Sennosides (Senokot) 17.2 mg DAILY ORAL 01/21/20 09:00 02/20/20 08:59 02/02/20 08:40 Vitamin D (Vitamin D) 2,000 intlu DAILY ORAL 01/29/20 09:00 02/20/20 08:59 02/02/20 08:39 Sebastian Dumont MD Feb 02, 2020 12:22
[2020-02-02 15:47] VITALS: BP 107/57
--- NOTE | 2020-02-02 16:35 | NUR ---
CASE MANAGEMENT:REVIEW SI;COVID PNEUMONIA 98.1 81 20 131/80 94% ON RA IS;PROTONIX PO COGENTIN PO HYDRALAZINE PO Q8 XARELTO PO MED SURG STATUS DCP;FROM [facility]
--- NOTE | 2020-02-02 16:39 | NUR ---
NUCLEAR TECHNOLOGIST NOTE [facility] NO B[facility]S AVAILABLE TODAY. ANTICIPATING BED AVAILABILITY ON 02/03/20. WILL FOLLOW UP IN AM
[2020-02-02] MEDS: Xarelto 10mg tab ORAL SCH (16:41)
--- NOTE | 2020-02-02 17:56 | General Progress Note ---
Subjective ROS Limited/Unobtainable: No Constitutional: Reports: malaise, weakness HEENT: Reports: no symptoms Cardiovascular: Reports: no symptoms Respiratory: Reports: cough Gastrointestinal/Abdominal: Reports: no symptoms Genitourinary: Reports: no symptoms Neurologic/Psychiatric: Reports: no symptoms Endocrine: Reports: no symptoms Hematologic/Lymphatic: Reports: no symptoms Allergies: Coded Allergies: No Known Allergies (Unverified , 09/04/12) All Systems: reviewed and negative except above Subjective overall better. on room air. previously on o2 at snf(for months.) no chest pain or sob. no fevers. Objective Last 24 Hour Vital Signs Date Time Temp Pulse Resp B/P (MAP) Pulse Ox O2 Delivery O2 Flow Rate FiO2 02/02/20 15:47 98.0 75 18 107/57 (74) 97 02/02/20 13:12 119/56 02/02/20 12:01 97.2 81 18 119/56 (77) 94 02/02/20 08:35 Room Air 02/02/20 08:00 98.1 69 20 131/80 (97) 94 02/02/20 06:27 131/79 02/02/20 04:00 98.2 74 18 116/79 (91) 94 02/02/20 00:00 97.1 67 20 105/56 (72) 97 02/01/20 21:35 136/60 02/01/20 21:00 Room Air 02/01/20 20:00 98.1 70 16 122/55 (77) 95 l Intake and Output 02/01/20 02/02/20 19:00 07:00 Intake Total 960 ml 420 ml Output Total 1700 ml 1100 ml Balance -740 ml -680 ml Intake Oral 960 ml 420 ml Output Urine Total 1700 ml 1100 ml Height (Feet): 5 Height (Inches): 3.00 Weight (Pounds): 279 Objective General Appearance: WD/WN, alert EENT: PERRL/EOMI, normal ENT inspection Neck: non-tender, normal alignment, supple Cardiovascular: normal peripheral pulses, normal rate Respiratory/Chest: chest wall non-tender, lungs clear, normal breath sounds, no respiratory distress Abdomen: normal bowel sounds, non tender, soft, no organomegaly Edema: no edema noted Arm (L), no edema noted Arm (R), no edema noted Leg (L), no edema noted 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 (R) 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, alert, oriented x 3, responsive Skin: normal pigmentation Assessment/Plan Problem List: (1) CVA (cerebral vascular accident) ICD Codes: I63.9 - Cerebral infarction, unspecified SNOMED: 660217366 (2) CHF (congestive heart failure) ICD Codes: I50.9 - Heart failure, unspecified SNOMED: 12635425 (3) HTN (hypertension), malignant ICD Codes: I10 - Essential (primary) hypertension SNOMED: 37744402 (4) Pneumonia ICD Codes: J18.9 - Pneumonia, unspecified organism SNOMED: 736469868 (5) 2019 novel coronavirus detected ICD Codes: U07.1 - COVID-19 SNOMED: 7038248252218826 Status: stable Assessment/Plan: cont current rx o2 as needed. on chronic o2 at snf remdesivir and steroids cont xarelto resp care stress ulcer prophylaxis psych rx dc planning when bed available Federico Parham MD Feb 02, 2020 17:56
--- NOTE | 2020-02-02 19:29 | NUR ---
NURSE HAND-OFF: Important Events on NONE Patient Status: STABLE Diet: [REGULAR SOFT EASY CHEW] Pending Orders: [NONE] Pending Results/Labs:[NONE] Pending MD NONE Latest Vital Signs: Temperature 98.0 , Pulse 75 , B/P 107 /57 , Respiratory Rate 18 , O2 SAT 97 , Room Air, O2 Flow Rate 2.0 . Vital Sign Comment: [STABLE] Latest Johnson Fall Score: 70 Fall Risk: High Risk Safety Measures: Call light Within Reach, Bed Alarm Zone 1, Side Rails Side Rails x2, Bed position Low and Locked. Fall Precautions: Yellow Socks Yellow Gown Door Sign Patient Fall Education Report given to [DYLON RN ACCORDINGLY JOSE SOLIS].
[2020-02-02 20:00] VITALS: BP 98/52
--- NOTE | 2020-02-02 20:00 | NUR ---
NURSE NOTES: Received patient comfortably resting in bed, no SOB noted. Kept clean and dry.
[2020-02-02] MEDS: Atorvastatin 20mg tab ORAL SCH (21:07)
--- NOTE | 2020-02-02 22:40 | Cardiology Progress Note ---
Subjective DATE OF SERVICE: Feb 02, 2020 No SOB. Continues saturating well on room air now. BP parameters overall well controlled. Patient completed therapies with remdesivir, steroids, and anticoagulation. Awaiting (Covid29) SNF bed for transfer Objective Last 24 Hour Vital Signs Date Time Temp Pulse Resp B/P (MAP) Pulse Ox O2 Delivery O2 Flow Rate FiO2 02/02/20 21:08 98/52 02/02/20 20:28 Room Air 02/02/20 20:00 98.4 83 19 98/52 (67) 93 02/02/20 15:47 98.0 75 18 107/57 (74) 97 02/02/20 13:12 119/56 02/02/20 12:01 97.2 81 18 119/56 (77) 94 02/02/20 08:35 Room Air 02/02/20 08:00 98.1 69 20 131/80 (97) 94 02/02/20 06:27 131/79 02/02/20 04:00 98.2 74 18 116/79 (91) 94 02/02/20 00:00 97.1 67 20 105/56 (72) 97 ROS: unchanged from my initial evaluation HEENT: normal ENT inspection RHYTHM: NSR LUNGS: lungs clear bilaterally, no accessory muscle use, diminished breath sounds CARDIAC: normal rate, regular rhythm, gallop/S4 ABDOMEN: normal bowel sounds, soft, no organomegaly EXTREMITIES: trace edema Assessment/Plan Assessment/Plan Covid 19 PNA Hypoxia resolving Bipolar with hx psychosis Hypertension/HHD Diastolic CHF, chr Low lipid parameters on high dose statin Off IVF Monitor volume status; trend BNP. Steroid rx completed. Titrate antiHTN meds as needed; expect lower BP range once off steroids. On lower dose statin based on recent lipid panel DC oxygen Continue anticoagulation for DVT prophylaxis; off aspirin to decrease bleeding risk. Alex Gibbons MD Feb 02, 2020 22:40
[2020-02-03] VITALS (7 sets, daily range): BP systolic 111–137; BP diastolic 47–68
[2020-02-03] MEDS: HydrALAZINE 50mg tab ORAL SCH ×2 (04:56→13:33)
--- NOTE | 2020-02-03 07:05 | NUR ---
NURSE NOTES: received patient resting comfortably in bed sleeping, no sign of respiratory distress, on RA at this , on fall, aspiration and covid isolation, both side rails up for safety, bed in low level, call light within easy reach. Will continue to monitor patient condition rahul quarles
--- NOTE | 2020-02-03 07:20 | NUR ---
HAND-OFF: Report given to Sandra dietz RN.
[2020-02-03] MEDS: Vitamin D 1000 units Tab ORAL SCH (08:11)
[2020-02-03] MEDS: Miralax 17gm pkt ORAL SCH (08:12)
[2020-02-03] MEDS: Sennosides 8.6mg tab ORAL SCH (08:12)
[2020-02-03] MEDS: Benztropine 1mg tab ORAL SCH ×2 (08:12→17:32)
--- NOTE | 2020-02-03 09:45 | NUR ---
nurse notes endorsed to BRENDA for continuity of care rahul quarles
--- NOTE | 2020-02-03 09:50 | NUR ---
NURSE NOTES: Received patient in bed,awake, alert and oriented x4. Patient denies pain or discomfort @ this time. Bed is in lowest position and locked. Call light within reach. Patient is incontinent, external incontinent device is in place. IV is intact, no s/s of infiltration. Will continue plan of care.
--- NOTE | 2020-02-03 11:16 | NUR ---
RD ASSESSMENT & RECOMMENDATIONS SEE CARE ACTIVITY FOR COMPLETE ASSESSMENT DAILY ESTIMATED NEEDS: Needs based on Pulmonary, obese/ 76kg abw 20-23 kcals/kg 5704-1446 total kcals 1-1.5 g protein/kg 76-114 g total protein 25-30 mL/kg 2509-6609 total fluid mLs NUTRITION DIAGNOSIS: Morbid obesity R/T life style factors? excessive energy intake? as evidenced by BMI >40, pt @ 215% IBW. CURRENT DIET:REGULAR soft easy chew PO DIET RECOMMENDATIONS: CARDIAC ADDITIONAL RECOMMENDATIONS: * Calibrated bedscale wt * Monitor for continued good tolerance to oral diet- COVID-19 positive * Monitor BGs w/ Decadron- good BG control at this time. Now off decadron, BG good (105-117) Rec Check HgA1C
--- NOTE | 2020-02-03 11:55 | NUR ---
NURSE HAND-OFF: Important Events on Shift:n/a Patient Status: stable Diet: regular soft easy chew Pending Orders: Pending Results/Labs: Pending MD notification: Latest Vital Signs: Temperature 98.6 , Pulse 77 , B/P 124 /62 , Respiratory Rate 20 , O2 SAT 96 , Room Air, O2 Flow Rate 2.0 . Vital Sign Comment: Latest Johnson Fall Score: 70 Fall Risk: High Risk Safety Measures: Call light Within Reach, Bed Alarm Zone 1, Side Rails Side Rails x2, Bed position Low and Locked. Fall Precautions: Yellow Socks Yellow Gown Door Sign Patient Fall Education Report given to Ani and endorsed plan of care..
--- NOTE | 2020-02-03 12:35 | Infectious Diseases Prog Note ---
Assessment/Plan Assessment/Plan A; 1. COVID-19 pneumonia. 2. Sleep apnea. 3. Hypertension. 4. Schizophrenia. 5. Morbid obesity PLAN: 1. Finished Remdesivir & Dexamethasone course 2. Continue isolation. Subjective ROS Limited/Unobtainable: Yes Allergies: Coded Allergies: No Known Allergies (Unverified , 09/04/12) Objective Last 24 Hour Vital Signs Date Time Temp Pulse Resp B/P (MAP) Pulse Ox O2 Delivery O2 Flow Rate FiO2 02/03/20 12:00 98.7 69 20 111/57 (75) 95 02/03/20 08:10 Room Air 02/03/20 07:52 98.6 77 20 124/62 (82) 96 02/03/20 04:56 115/52 02/03/20 04:20 98.2 69 17 115/52 (73) 96 02/03/20 00:03 98.6 73 18 115/47 (69) 94 02/02/20 21:08 98/52 02/02/20 20:28 Room Air 02/02/20 20:00 98.4 83 19 98/52 (67) 93 02/02/20 15:47 98.0 75 18 107/57 (74) 97 02/02/20 13:12 119/56 Height (Feet): 5 Height (Inches): 3.00 Weight (Pounds): 279 HEENT: mucous membranes moist Respiratory/Chest: other - oxygen by nasal cannula Cardiovascular: normal rate Abdomen: soft, non tender Skin: other - sleeping Current Medications Medications (Trade) Dose Ordered Sig/Turner Route PRN Reason Start Time Stop Time Status Last Admin Dose Admin Acetaminophen (Tylenol) 650 mg Q4H PRN ORAL MILD PAIN 01/21/20 07:45 02/20/20 07:44 Acetaminophen (Tylenol) 650 mg Q4H PRN ORAL fever 01/21/20 07:45 02/20/20 07:44 Aripiprazole (Abilify) 30 mg DAILY ORAL 01/21/20 09:00 03/06/20 08:59 02/03/20 08:12 Atorvastatin Calcium (Lipitor) 20 mg BEDTIME ORAL 01/27/20 21:00 04/26/20 20:59 02/02/20 21:07 Benztropine Mesylate (Cogentin) 1 mg BID ORAL 01/21/20 09:00 02/20/20 08:59 02/03/20 08:12 Hydralazine HCl (Apresoline) 50 mg EVERY 8 HOURS ORAL 01/23/20 14:00 04/22/20 13:59 02/02/20 13:12 Pantoprazole (Protonix) 40 mg DAILY ORAL 01/21/20 09:00 02/20/20 08:59 02/03/20 08:12 Polyethylene Glycol (Miralax) 17 gm DAILY ORAL 01/21/20 09:00 02/20/20 08:59 02/03/20 08:12 Promethazine HCl/ Codeine (Phenergan with Codeine) 5 ml Q4H PRN ORAL For Cough 01/22/20 15:30 02/21/20 15:29 02/02/20 06:27 Rivaroxaban (Xarelto) 20 mg QPM ORAL 01/24/20 16:30 04/23/20 16:29 02/02/20 16:41 Sennosides (Senokot) 17.2 mg DAILY ORAL 01/21/20 09:00 02/20/20 08:59 02/03/20 08:12 Vitamin D (Vitamin D) 2,000 intlu DAILY ORAL 01/29/20 09:00 02/20/20 08:59 02/03/20 08:11 Francisco Hilton MD Feb 03, 2020 12:35
--- NOTE | 2020-02-03 13:31 | NUR ---
NURSE NOTES: Checked pt bp for hydralazine admin. It was 115/50. Per pt, she does not want to take the hydralazine. Given the BP is within normal range, I will continue to monitor and ensure it does not spike.
--- NOTE | 2020-02-03 14:10 | NUR ---
NURSE NOTES: Pt received from Hemalatha Dexter RN. Bed low and locked, call light within reach. No complaint of pain or distress. Isolation precautions in place for Covid 19. Addendum: 02/03/20 at 1410 by Palmira Bourne RN Please note pt received at 11:15 not 1410
--- NOTE | 2020-02-03 16:36 | General Progress Note ---
Subjective ROS Limited/Unobtainable: No Constitutional: Reports: malaise, weakness HEENT: Reports: no symptoms Cardiovascular: Reports: no symptoms Respiratory: Reports: no symptoms Gastrointestinal/Abdominal: Reports: no symptoms Genitourinary: Reports: no symptoms Neurologic/Psychiatric: Reports: anxiety, emotional problems Endocrine: Reports: no symptoms Hematologic/Lymphatic: Reports: no symptoms Allergies: Coded Allergies: No Known Allergies (Unverified , 09/04/12) All Systems: reviewed and negative except above Subjective overall better. on room air. previously on o2 at snf(for months.) no chest pain or sob. no fevers. Objective Last 24 Hour Vital Signs Date Time Temp Pulse Resp B/P (MAP) Pulse Ox O2 Delivery O2 Flow Rate FiO2 02/03/20 12:00 98.7 69 20 111/57 (75) 95 02/03/20 08:10 Room Air 02/03/20 07:52 98.6 77 20 124/62 (82) 96 02/03/20 04:56 115/52 02/03/20 04:20 98.2 69 17 115/52 (73) 96 02/03/20 00:03 98.6 73 18 115/47 (69) 94 02/02/20 21:08 98/52 02/02/20 20:28 Room Air 02/02/20 20:00 98.4 83 19 98/52 (67) 93 Intake and Output 02/02/20 02/03/20 19:00 07:00 Intake Total 650 ml 800 ml Output Total 800 ml 1400 ml Balance -150 ml -600 ml Intake Oral 650 ml Other 800 ml Output Urine Total 800 ml 1400 ml Height (Feet): 5 Height (Inches): 3.00 Weight (Pounds): 279 Objective General Appearance: WD/WN, alert EENT: PERRL/EOMI, normal ENT inspection Neck: non-tender, normal alignment, supple Cardiovascular: normal peripheral pulses, normal rate Respiratory/Chest: chest wall non-tender, lungs clear, normal breath sounds, no respiratory distress Abdomen: normal bowel sounds, non tender, soft, no organomegaly Edema: no edema noted Arm (L), no edema noted Arm (R), no edema noted Leg (L), no edema noted Leg (R) 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, alert, oriented x 3, responsive Skin: normal pigmentation Assessment/Plan Problem List: (1) CVA (cerebral vascular accident) ICD Codes: I63.9 - Cerebral infarction, unspecified SNOMED: 556256031 (2) CHF (congestive heart failure) ICD Codes: I50.9 - Heart failure, unspecified SNOMED: 95663370 (3) HTN (hypertension), malignant ICD Codes: I10 - Essential (primary) hypertension SNOMED: 62782000 (4) Pneumonia ICD Codes: J18.9 - Pneumonia, unspecified organism SNOMED: 773331821 (5) 2019 novel coronavirus detected ICD Codes: U07.1 - COVID-19 SNOMED: 2524077978041272 Status: stable Assessment/Plan: cont current rx o2 as needed. on chronic o2 at snf remdesivir and steroids cont xarelto resp care stress ulcer prophylaxis psych rx dc planning when bed available Federico Parham MD Feb 03, 2020 16:36
[2020-02-03] MEDS: Xarelto 10mg tab ORAL SCH (17:31)
--- NOTE | 2020-02-03 18:31 | NUR ---
NURSE HAND-OFF: Important Events on Shift:[No remarkable events] Patient Status: [In bed watching tv stable] Diet: [regular soft easy chew] Pending Orders: [] Pending Results/Labs:[] Pending MD notification:[] Latest Vital Signs: Temperature 98.8 , Pulse 76 , B/P 115 /55 , Respiratory Rate 20 , O2 SAT 96 , Room Air, O2 Flow Rate 2.0 . Vital Sign Comment: [] Latest Johnson Fall Score: 70 Fall Risk: High Risk Safety Measures: Call light Within Reach, Bed Alarm Zone 1, Side Rails Side Rails x2, Bed position Low and Locked. Fall Precautions: Yellow Socks Yellow Gown Door Sign Patient Fall Education Report given to [Pending RN assignment]. Addendum: 02/03/20 at 1934 by Palmira Bourne RN Report given to Ketan GARCIA
--- NOTE | 2020-02-03 19:09 | Cardiology Progress Note ---
Subjective DATE OF SERVICE: Feb 03, 2020 No SOB. Continues saturating well on room air. BP parameters now in LOW-normal range. Patient completed therapies with remdesivir, steroids, and anticoagulation. Awaiting (Covid19) SNF bed for transfer Objective Last 24 Hour Vital Signs Date Time Temp Pulse Resp B/P (MAP) Pulse Ox O2 Delivery O2 Flow Rate FiO2 02/03/20 16:00 98.8 76 20 115/55 (75) 96 02/03/20 12:00 98.7 69 20 111/57 (75) 95 02/03/20 08:10 Room Air 02/03/20 07:52 98.6 77 20 124/62 (82) 96 02/03/20 04:56 115/52 02/03/20 04:20 98.2 69 17 115/52 (73) 96 02/03/20 00:03 98.6 73 18 115/47 (69) 94 02/02/20 21:08 98/52 02/02/20 20:28 Room Air 02/02/20 20:00 98.4 83 19 98/52 (67) 93 ROS: unchanged from my initial evaluation HEENT: normal ENT inspection RHYTHM: NSR LUNGS: lungs clear bilaterally, no accessory muscle use, diminished breath sounds CARDIAC: normal rate, regular rhythm, gallop/S4 ABDOMEN: normal bowel sounds, soft, no organomegaly EXTREMITIES: trace edema Assessment/Plan Assessment/Plan Covid 19 PNA Hypoxia resolving Bipolar with hx psychosis Hypertension/HHD - now with low range BP. Diastolic CHF, chr Low lipid parameters on high dose statin Decrease hydralazine dose; monitor BP response. Off IVF Monitor volume status; trend BNP. Steroid rx completed. Titrate antiHTN meds as needed; expect lower BP range once off steroids. On lower dose statin based on recent lipid panel DC oxygen Continue anticoagulation for DVT prophylaxis; off aspirin to decrease bleeding risk. Alex Gibbons MD Feb 03, 2020 19:09
--- NOTE | 2020-02-03 20:00 | NUR ---
NURSE NOTES: Received patient awake, no SOB noted, comfortably resting in bed, kept clean and dry.
[2020-02-03] MEDS: Atorvastatin 20mg tab ORAL SCH (21:17)
[2020-02-03] MEDS: HydrALAZINE 25mg tab ORAL SCH (21:17)
[2020-02-04 04:56] VITALS: BP 123/64
[2020-02-04] MEDS: HydrALAZINE 25mg tab ORAL SCH ×2 (05:07→13:03)
--- NOTE | 2020-02-04 07:12 | NUR ---
HAND-OFF: Report given to Vignesh Rai RN.
--- NOTE | 2020-02-04 07:14 | NUR ---
NURSE NOTES: Handoff received from Qing GARCIA. Patient is asleep, no signs of acute distress noted, breathing is even and unlabored on 2L NC. Left arm IV is intact and saline locked. Purewick is draining to suction. Bed is low and locked, side rails up x2, call light is within reach.
[2020-02-04 08:00] VITALS: BP 123/57
[2020-02-04] MEDS: Miralax 17gm pkt ORAL SCH (08:29)
[2020-02-04] MEDS: Benztropine 1mg tab ORAL SCH (08:31)
[2020-02-04] MEDS: Vitamin D 1000 units Tab ORAL SCH (08:32)
[2020-02-04] MEDS: Sennosides 8.6mg tab ORAL SCH (08:32)
--- NOTE | 2020-02-04 10:52 | NUR ---
DISCHARGE PLANNED*-* PATIENT HAS BEEN ACCEPTED AND WILL BE DISCHARGE TO: [facility] P: [phone] FOR NURSE TO NURSE REPORT ROOM# 17.[facility] SET FOR 12PM S/W [facility] [id number]. PLACED A CALL TO PATIENTS FAMILY, NO ANSWER, UNABLE TO LEAVE VOICE MESSAGE.
--- NOTE | 2020-02-04 11:36 | Infectious Diseases Prog Note ---
Assessment/Plan Assessment/Plan antibiotics : none A 1. recurrent COVID-19 pneumonia. on room air, oxygen saturation of 97 %. s/p remdesivir s/p dexamethasone 2. Sleep apnea. 3. Hypertension. 4. Schizophrenia. P 1. continue off antibiotics 2. We will follow up patient clinically. 3. Continue isolation. Subjective ROS Limited/Unobtainable: Yes Allergies: Coded Allergies: No Known Allergies (Unverified , 09/04/12) Objective Last 24 Hour Vital Signs Date Time Temp Pulse Resp B/P (MAP) Pulse Ox O2 Delivery O2 Flow Rate FiO2 02/04/20 09:00 Room Air 02/04/20 08:00 98.2 96 19 123/57 (79) 97 02/04/20 05:07 123/64 02/04/20 04:56 98.1 83 20 123/64 (83) 93 02/03/20 23:46 98.7 90 20 121/68 (85) 96 02/03/20 21:34 Room Air 02/03/20 21:17 115/55 02/03/20 21:00 98.1 90 20 137/56 (83) 94 02/03/20 16:00 98.8 76 20 115/55 (75) 96 02/03/20 12:00 98.7 69 20 111/57 (75) 95 Height (Feet): 5 Height (Inches): 3.00 Weight (Pounds): 279 Current Medications Medications (Trade) Dose Ordered Sig/Turner Route PRN Reason Start Time Stop Time Status Last Admin Dose Admin Acetaminophen (Tylenol) 650 mg Q4H PRN ORAL MILD PAIN 01/21/20 07:45 02/20/20 07:44 Acetaminophen (Tylenol) 650 mg Q4H PRN ORAL fever 01/21/20 07:45 02/20/20 07:44 Aripiprazole (Abilify) 30 mg DAILY ORAL 01/21/20 09:00 03/06/20 08:59 02/04/20 08:30 Atorvastatin Calcium (Lipitor) 20 mg BEDTIME ORAL 01/27/20 21:00 04/26/20 20:59 02/03/20 21:17 Benztropine Mesylate (Cogentin) 1 mg BID ORAL 01/21/20 09:00 02/20/20 08:59 02/04/20 08:31 Hydralazine HCl (Apresoline) 25 mg EVERY 8 HOURS ORAL 02/03/20 22:00 05/03/20 21:59 02/04/20 05:07 Pantoprazole (Protonix) 40 mg DAILY ORAL 01/21/20 09:00 02/20/20 08:59 02/04/20 08:30 Polyethylene Glycol (Miralax) 17 gm DAILY ORAL 01/21/20 09:00 02/20/20 08:59 02/04/20 08:29 Promethazine HCl/ Codeine (Phenergan with Codeine) 5 ml Q4H PRN ORAL For Cough 01/22/20 15:30 02/21/20 15:29 02/02/20 06:27 Rivaroxaban (Xarelto) 20 mg QPM ORAL 01/24/20 16:30 04/23/20 16:29 02/03/20 17:31 Sennosides (Senokot) 17.2 mg DAILY ORAL 01/21/20 09:00 02/20/20 08:59 02/04/20 08:32 Vitamin D (Vitamin D) 2,000 intlu DAILY ORAL 01/29/20 09:00 02/20/20 08:59 02/04/20 08:32 Sebastian Dumont MD Feb 04, 2020 11:36
--- NOTE | 2020-02-04 11:53 | General Progress Note ---
Subjective ROS Limited/Unobtainable: No Constitutional: Reports: malaise, weakness HEENT: Reports: no symptoms Cardiovascular: Reports: no symptoms Respiratory: Reports: no symptoms Gastrointestinal/Abdominal: Reports: no symptoms Genitourinary: Reports: no symptoms Neurologic/Psychiatric: Reports: no symptoms Endocrine: Reports: no symptoms Hematologic/Lymphatic: Reports: no symptoms Allergies: Coded Allergies: No Known Allergies (Unverified , 09/04/12) All Systems: reviewed and negative except above Subjective overall better. on room air. previously on o2 at snf(for months.) no chest pain or sob. no fevers. Objective Last 24 Hour Vital Signs Date Time Temp Pulse Resp B/P (MAP) Pulse Ox O2 Delivery O2 Flow Rate FiO2 02/04/20 09:00 Room Air 02/04/20 08:00 98.2 96 19 123/57 (79) 97 02/04/20 05:07 123/64 02/04/20 04:56 98.1 83 20 123/64 (83) 93 02/03/20 23:46 98.7 90 20 121/68 (85) 96 02/03/20 21:34 Room Air 02/03/20 21:17 115/55 02/03/20 21:00 98.1 90 20 137/56 (83) 94 02/03/20 16:00 98.8 76 20 115/55 (75) 96 02/03/20 12:00 98.7 69 20 111/57 (75) 95 Intake and Output 02/03/20 02/04/20 19:00 07:00 Intake Total 1400 ml 400 ml Output Total 1500 ml 800 ml Balance -100 ml -400 ml Intake Oral 600 ml 400 ml Other 800 ml Output Urine Total 1500 ml 800 ml # Bowel Movements 1 Height (Feet): 5 Height (Inches): 3.00 Weight (Pounds): 279 Objective General Appearance: WD/WN, alert EENT: PERRL/EOMI, normal ENT inspection Neck: non-tender, normal alignment, supple Cardiovascular: normal peripheral pulses, normal rate Respiratory/Chest: chest wall non-tender, lungs clear, normal breath sounds, no respiratory distress Abdomen: normal bowel sounds, non tender, soft, no organomegaly Edema: no edema noted Arm (L), no edema noted Arm (R), no edema noted Leg (L), no edema noted Leg (R) 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, alert, oriented x 3, responsive Skin: normal pigmentation Assessment/Plan Problem List: (1) CVA (cerebral vascular accident) ICD Codes: I63.9 - Cerebral infarction, unspecified SNOMED: 703514024 (2) CHF (congestive heart failure) ICD Codes: I50.9 - Heart failure, unspecified SNOMED: 00931995 (3) HTN (hypertension), malignant ICD Codes: I10 - Essential (primary) hypertension SNOMED: 46438465 (4) Pneumonia ICD Codes: J18.9 - Pneumonia, unspecified organism SNOMED: 117259240 (5) 2019 novel coronavirus detected ICD Codes: U07.1 - COVID-19 SNOMED: 3542005668621395 Status: stable Assessment/Plan: cont current rx o2 as needed. on chronic o2 at snf remdesivir and steroids cont xarelto resp care stress ulcer prophylaxis psych rx dc planning when bed available Federico Parham MD Feb 04, 2020 11:53
[2020-02-04 12:00] VITALS: BP 115/54
--- NOTE | 2020-02-04 12:20 | NUR ---
NURSE NOTES: Received phone call from [facility] My says ambulance is running late for 30-45mins.
[2020-02-04 13:03] VITALS: BP 111/54
--- NOTE | 2020-02-04 13:04 | NUR ---
NURSE NOTES: Received call from Deangelo at [facility]. She stated that since the patient's last COVID test was 14 days ago and the patient is asymptomatic she will have to go back to [facility]. RN updated Leti ANGELA about the situation.
--- NOTE | 2020-02-04 13:20 | NUR ---
NURSE NOTES: spray drier clarified with Dr. Waite due to dexamethasone. Patient is s/p dexamethasone 6mg 10days last dose on 01/31/20. Dr. Parham said ok to d/c dexamethasone from discharge meds.
--- NOTE | 2020-02-04 14:10 | NUR ---
NURSE NOTES: Per Leti ANGELA patient will be accepted at [facility] tomorrow, inquiry also sent to [place] public [facility].
--- NOTE | 2020-02-04 14:20 | NUR ---
DISCHARGE PLANNED*-* PATIENT HAS BEEN ACCEPTED AND WILL BE DISCHARGE TO: [facility] P: [phone] FOR NURSE TO NURSE REPORT ROOM# 15.[facility] SET FOR 12PM S/W [facility] [id number]. PLACED A CALL TO PATIENTS FAMILY, NO ANSWER
--- NOTE | 2020-02-04 15:15 | NUR ---
NURSE NOTES: Patient safely discharged from to [facility] via [facility]. Patient information packet provided and belongings list verified and signed. IV and ID wristband removed.
== END 2020-02-04 15:35 | DRG 177 ==
LOC: EDBD 21:48 → EMR 22:12 → EDBEDREQ 01-21 07:02 → 2E 01-21 07:11 → 4E 01-23 18:33
DX: U07.1 COVID-19 (principal); J12.89 Other viral pneumonia; I50.32 Chronic diastolic (congestive) heart failure; Z68.42 Body mass index [BMI] 45.0-49.9, adult; I11.0 Hypertensive heart disease with heart failure; E66.01 Morbid (severe) obesity due to excess calories; Z86.19 Personal history of other infectious and parasitic diseases; Z79.01 Long term (current) use of anticoagulants; Z86.73 Personal history of transient ischemic attack (TIA), and cerebral infarction without residual deficits; Z86.718 Personal history of other venous thrombosis and embolism; F20.9 Schizophrenia, unspecified; G47.30 Sleep apnea, unspecified; Z87.891 Personal history of nicotine dependence; E78.5 Hyperlipidemia, unspecified; R09.02 Hypoxemia
CPT/HCPCS: 36415; 71045; 80053; 80061; 81003; 82248; 82550; 82553; 82728; 83605; 83615; 83690; 83735; 83880; 84100; 84484; 85007; 85025; 85379; 85610; 85730; 86140; 87040; 87081; 93005; 96360; 99285; J3490; J7030; U0002